=== PATIENT | female | born 1925 | race Caucasian/White ===

== ENCOUNTER → 2016-06-05 | Outpatient (CLI) | payer OTHER, BC ==
[~2016-06-05] MED LIST: ACET-1256 PO; ACET500C6 PO; ALBINS/ INH; ATEN-175 PO; ATROPS5 SL; ATV5 SL; B-COCAP20 PO; BNDL2 PO; CLC100 PO; CLCUDL150 PO; DILT180C58 PO; DLCS PR; DRGTP12 TD; FURO-85 PO; HYDCR25 EXT; LCTS240 PO; LDDP5 TD; LDXO60 TOP; RCL25 PO; RXNS2.5 PO; RXNS5 PO; SODI650T9 PO; TIOTCAP INH; TUMS PO; VNTHFA/IN INH; [UNRECOGNIZED DRUG - CODE] PO; [UNRECOGNIZED DRUG - CODE] PO
--- NOTE | 2016-06-05 11:08 | DIAGNOSTIC IMAGING REPORT ---
CHEST 2 VIEWS ROUTINE CLINICAL HISTORY: R05 [id number] [address] up posterior chest wall on right s dyspnea COMPARISON STUDY: 04/21/2015 FINDINGS: Consolidative parenchymal infiltrate right base. Small associated right effusion. Lungs otherwise appear clear. There is a component of emphysematous change. IMPRESSION: Consolidative infiltrate right base. Small right effusion. Follow-up to resolution is suggested. Electronically signed by: Abrahan Godwin M.D. 06/05/2016 11:06 AM Dictated Date/Time: 06/05/2016 10:59 AM
--- NOTE | 2016-06-05 11:13 | DIAGNOSTIC IMAGING REPORT ---
RIGHT-SIDED RIB SERIES CLINICAL HISTORY: Right chest wall pain. FINDINGS: 4 views from a right-sided rib series are compared to chest x-ray dated 04/21/2015 and correlated with chest CT dated 07/27/2011. The skeletal structures are osteopenic. There are chronic appearing right lateral fourth and fifth rib fractures. No acute/distracted rib fracture is seen. There is a right pleural effusion with right basilar consolidation. Atherosclerotic calcification is noted in the thoracic aorta. Emphysema is identified. IMPRESSION: 1. There is no radiographic evidence of acute/distracted right-sided rib fracture as clinically queried. 2. There are chronic appearing/healed right fourth and fifth right-sided rib fractures as above. 3. Right pleural effusion with right basilar consolidation. 4. Emphysema. Electronically signed by: Augustine Peralta M.D. 06/05/2016 11:11 AM Dictated Date/Time: 06/05/2016 11:06 AM
== END | disposition home or self-care (01) ==
LOC: C.RAD1850 10:31
PROVIDERS: ATTEND Dermatology
DX: R05 Cough (principal); R09.89 Other specified symptoms and signs involving the circulatory and respiratory systems; J43.9 Emphysema, unspecified; J90 Pleural effusion, not elsewhere classified

== ENCOUNTER 2016-06-23 16:14 | Inpatient (IN) | payer OTHER, BC ==
[~2016-06-23] VITALS: Ht 162.6 cm; Wt 53.7 kg
[~2016-06-23 16:14] MED LIST changes: -ACET-1256 PO; -ALBINS/ INH; -ATROPS5 SL; -ATV5 SL; -B-COCAP20 PO; -BNDL2 PO; -CLC100 PO; -CLCUDL150 PO; -DLCS PR; -DRGTP12 TD; -HYDCR25 EXT; -LCTS240 PO; -LDDP5 TD; -RCL25 PO; -RXNS2.5 PO; -RXNS5 PO; -SODI650T9 PO; -TUMS PO; -VNTHFA/IN INH; -[UNRECOGNIZED DRUG - CODE] PO; -[UNRECOGNIZED DRUG - CODE] PO
[2016-06-23 17:10] LABS: HEMATOCRIT 34.7 % (37-47); MEAN CELL VOLUME 93.5 fL (80-100); MEAN CORPUSCULAR HEMOGLOBIN 30.2 pg (25-34); MEAN CORPUSCULAR HGB CONC 32.3 g/dl (32-36); MEAN PLATELET VOLUME 9.8 fL (7.4-10.4); PLATELET COUNT 525 K/uL (130-400); RED BLOOD COUNT 3.71 M/uL (4.2-5.4); WHITE BLOOD COUNT 14.39 K/uL (4.8-10.8)
--- NOTE | 2016-06-23 17:15 | EMERGENCY ROOM VISIT NOTE ---
History Report prepared by Zaheer: Dalia Diamond Under the Supervision of: Dr. Miguelina Xiong D.O. First contact with patient: 16:24 Chief Complaint: RESPIRATORY PROBLEMS Stated Complaint: PNEUMONIA FOR 3 WEEKS- PHYSICIAN REFERRED History of Present Illness The patient is an 89 year old female who presents to the Emergency Room with complaints of worsening shortness of breath starting a few weeks [employer]. The patient's states that she was sent in today by her PCP to come be evaluated at the ED today. The patient states that she has had pneumonia and been on 3 different antibiotics with no relief of her symptoms. The patient states that she has felt worsening SOB, generalized weakness, and fatigue. The patient's daughter states that in late may the patient was seen with shortness of breath at [facility] and was prescribed doxycycline for 10 days. She states the patient had no relief of her symptoms and was seen on June 05 and given azithromycin. The patient's daughter states that the patient initially had relief of her symptoms but about 1 week ago the patient's symptoms worsened and saw her PCP and was diagnosed with right sided pneumonia. She states the patient was prescribed Clindamycin along with prednisone. The patient's daughter states the patient was home alone this weekend and did not leave her bedroom to take her medication because she was so week and only got up to go to the bathroom.She states that the patient complains of worsening shortness of breath when lying down. The patient's daughter states that the patient's medication was changed to a liquid form yesterday because the patient had not been able to take her medication in the pill form. The patient states that she now has diarrhea and states she is unsure if it is due to her taking Mucinex. The patient's daughter states the patient has been using her nebulizer 4 times a day and her inhaler intermittently. She states last night the patient's oxygen saturations were down to 85% and they got the patient oxygen to wear at home last night and it has stayed up at 95% on oxygen but states the patient does not normally wear oxygen at home. The patient states that she has been coughing up dark mucous recently. The patient states that she has a history of smoking but states she does not know of any history of emphysema or COPD but states she would not be surprised if she did have that. Source of History: patient Onset: few weeks [employer] Position: other (respiratory) Timing: worsening Modifying Factors (Worsening): other (lying down) Associated Symptoms: + diarrhea, + weakness (generalized) Note: Associated symptoms: fatigue Review of Systems See HPI for pertinent positives & negatives. A total of 10 systems reviewed and were otherwise negative. Past Medical & Surgical Medical Problems: (1) Arthritis (2) Benign hypertension (3) Bronchitis (4) ovarian cyst rupture (5) Pleural effusion (6) Pneumonia (7) right hip replacement (8) right knee replacement Family History FH: HTN (hypertension) FH: cancer FH: kidney disease Heart disease Social History Smoking Status: Former Smoker Alcohol Use: occasionally Drug Use: none Marital Status: Housing Status: lives with family Occupation Status: retired Current/Historical Medications Scheduled Albuterol Hfa (Ventolin Hfa), 2 PUFFS INH QID Albuterol Sulf (Proventil 0.083% 2.5MG/3ML), 2.5 MG INH QID Atenolol (Tenormin), 100 MG PO DAILY Clindamycin Palmitate (Clindamycin Palmitate HCl), 20 ML PO TID Diltiazem Hcl Coated Beads (Diltiazem Cd), 180 MG PO DAILY Fluocinonide (Lidex 0.05% Oint), 1 GM TOP BID Furosemide (Lasix), 20 MG PO DAILY Prednisolone Sod Phos (Prednisolone Sodium Phosp), 40 ML PO UD Scheduled PRN Acetaminophen (Tylenol), 1,000 MG PO Q6H PRN for Pain Allergies Coded Allergies: Penicillins (Verified Allergy, Intermediate, hives, 06/23/16) Physical Exam Vital Signs Date Time Temp Pulse Resp B/P Pulse Ox O2 Delivery O2 Flow Rate FiO2 06/23/16 17:25 57 24 178/81 93 Room Air 06/23/16 17:04 94 Nasal Cannula 2.0 06/23/16 16:52 58 06/23/16 16:33 95 Nasal Cannula 2.0 06/23/16 16:16 36.8 61 22 183/82 94 Room Air Physical Exam General: The patient has a wet cough productive of thick brown sputum. HEENT: Head - normocephalic and atraumatic Pupils are equal, round, and reactive to light. Extraocular eye muscles are intact, and sclera are anicteric. Nose - moist nasal mucosa without discharge. Mouth - moist buccal mucosa. Oropharynx is nonerythematous and there is no tonsillar exudate or edema noted. Neck: Supple; no JVD, nuchal rigidity, cervical lymphadenopathy. Heart: Regular rate and rhythm. There is a normal S1 and S2 with no murmurs, clicks, or gallops appreciated. Lungs: Absent breath sounds in right base and rhonchi throughout all other lung ariza. Abdomen: Soft, completely nontender, nondistended, with good bowel sounds. There are no palpable pulsatile masses or hepatosplenomegaly. There is no guarding, rigidity, or rebound noted. Extremities: No evidence of cyanosis, clubbing, or edema. There are easily palpable peripheral pulses. Skin: Very thin and dry. Medical Decision & Procedures ER Provider Diagnostic Interpretation: X-ray results as stated below per interpretation by me and the radiologist: TWO VIEW CHEST CLINICAL HISTORY: Cough. Pneumonia. FINDINGS: AP and lateral chest radiographs are compared to study dated 06/05/2016 and correlated with chest CT dated 07/27/2011. The AP view is significant degraded by patient rotation. The heart is top normal for projection. There is advanced atherosclerotic calcification of the thoracic aorta. The pulmonary vasculature is noncongested. Advanced emphysema and chronic interstitial thickening is similar to previous. A moderate right pleural effusion is identified. The effusion appears to be at least partially loculated. Patchy airspace consolidation is seen in the right lower lung. The left lung is grossly clear. Apical scarring is observed. There is no pneumothorax. The skeletal structures are osteopenic. Advanced degenerative change is seen throughout the thoracic spine. Calcific tendinopathy is noted in left shoulder. IMPRESSION: 1. Advanced emphysema. 2. A pleural effusion at the right lung base has increased in size from 06/05/2016 and there is associated consolidation throughout the right lower lung. Correlate clinically for evidence of pneumonia. Radiographic follow-up to resolution is recommended. 3. The left lung is grossly clear Electronically signed by: Augustine Peralta M.D. 06/23/2016 5:41 PM Dictated Date/Time: 06/23/2016 5:37 PM Laboratory Results 06/23/16 16:57 Red Blood Count 3.71, Mean Corpuscular Volume 93.5, Mean Corpuscular Hemoglobin 30.2, Mean Corpuscular Hemoglobin Concent 32.3, Mean Platelet Volume 9.8, Neutrophils (%) (Auto) 95.5, Lymphocytes (%) (Auto) 2.6, Monocytes (%) (Auto) 1.5, Eosinophils (%) (Auto) 0.0, Basophils (%) (Auto) 0.0, Neutrophils # (Auto) 13.73, Lymphocytes # (Auto) 0.38, Monocytes # (Auto) 0.22, Eosinophils # (Auto) 0.00, Basophils # (Auto) 0.00 Test 06/23/16 16:57 06/23/16 17:05 06/23/16 17:54 White Blood Count 14.39 K/uL (4.8-10.8) Red Blood Count 3.71 M/uL (4.2-5.4) Hemoglobin 11.2 g/dL (12.0-16.0) Hematocrit 34.7 % (37-47) Mean Corpuscular Volume 93.5 fL (80-100) Mean Corpuscular Hemoglobin 30.2 pg (25-34) Mean Corpuscular Hemoglobin Concent 32.3 g/dl (32-36) Platelet Count 525 K/uL (130-400) Mean Platelet Volume 9.8 fL (7.4-10.4) Neutrophils (%) (Auto) 95.5 % Lymphocytes (%) (Auto) 2.6 % Monocytes (%) (Auto) 1.5 % Eosinophils (%) (Auto) 0.0 % Basophils (%) (Auto) 0.0 % Neutrophils # (Auto) 13.73 K/uL (1.4-6.5) Lymphocytes # (Auto) 0.38 K/uL (1.2-3.4) Monocytes # (Auto) 0.22 K/uL (0.11-0.59) Eosinophils # (Auto) 0.00 K/uL (0-0.5) Basophils # (Auto) 0.00 K/uL (0-0.2) RDW Standard Deviation 50.2 fL (36.4-46.3) RDW Coefficient of Variation 15.0 % (11.5-14.5) Immature Granulocyte % (Auto) 0.4 % Immature Granulocyte # (Auto) 0.06 K/uL (0.00-0.02) Total Bilirubin 0.2 mg/dl (0.2-1) Direct Bilirubin < 0.1 mg/dl (0-0.2) Aspartate Amino Transf (AST/SGOT) 26 U/L (15-37) Alanine Aminotransferase (ALT/SGPT) 35 U/L (12-78) Alkaline Phosphatase 86 U/L (45-117) Total Creatine Kinase 27 U/L (26-192) Creatine Kinase MB 1.4 ng/ml (0.5-3.6) Creatine Kinase MB Ratio 5.2 (0-3.0) Troponin I < 0.015 ng/ml (0-0.045) Pro-B-Type Natriuretic Peptide 51252 pg/ml (0-1800) Total Protein 7.0 gm/dl (6.4-8.2) Albumin 2.1 gm/dl (3.4-5.0) Bedside Lactic Acid Venous 2.46 mmol/L (0.90-1.70) Prothrombin Time 11.4 SECONDS (9.0-12.0) Prothromb Time International Ratio 1.1 (0.9-1.1) Activated Partial Thromboplast Time 29.2 SECONDS (21.0-31.0) Partial Thromboplastin Ratio 1.1 Laboratory results per my review. Medications Administered Medications (Trade) Dose Ordered Sig/[place] Route Start Time Stop Time Status Last Admin Dose Admin Aztreonam/Dextrose (Azactam IV/D5 100ml) 110 ml @ 100 mls/hr NOW STAT IV 06/23/16 17:50 06/23/16 18:55 DC 06/23/16 19:45 100 MLS/HR Levofloxacin (Levaquin / D5W) 750 mg NOW ONCE IV 06/23/16 18:00 06/23/16 18:01 DC 06/23/16 18:26 750 MG Procedure Medications Administered: Aztreonam 2,000 mgIV Levofloxacin 750 mg IV ECG Indication: SOB/dyspnea Rate (beats per minute): 30 Rhythm: normal sinus Findings: ST depression (Lateral), no ectopy ED Course 1629: Past medical records reviewed. The patient was evaluated in room C3. A complete history and physical exam was performed. A sepsis protocol was performed. A twelve-lead EKG was obtained as described above. The patient had a chest x-ray as described above. 1750: Ordered Aztreonam 2,000 mg/Dextrose 110 ml @100 mls/hr IV. 1754: I reevaluated the patient and she was resting comfortably, and I updated her that she would be admitted for further evaluation. She had not been able to produce a stool specimen as of yet. 175: I discussed the case with Dr. Taj Leavitt. He agreed to evaluate the patient for further management and care. 1800: Ordered Levofloxacin 750 mg IV. Medical Decision The patient is a 89 year old female who presents to the ED with SOB. Differential diagnosis includes sepsis, pneumonia, empyema, and underlying lung malignancy. C. Diff. Labs: White count 14.3 Anemic with hemoglobin 11.2 Platelet count 5.25 95% Neutrophils Lactic acid 2.4 LFTs normal BNP 14,124 This is an 89-year-old female patient who spilled outpatient therapy on 3 different courses of antibiotics for a right lower lobe pneumonia. The pneumonia has worsened and has now significant right-sided pleural effusion. The patient is hypoxic without supplemental O2. There is concern for the possibility of gram-negative pathogens as well as pseudomonas. There is significant concern for empyema. The patient was treated with IV antibiotics. She is hemodynamically stable. Consults Time Called: 1749 Consulting Physician: Dr. Taj Leavitt Returned Call: [phone] I discussed the case with Dr. Taj Leavitt. He agreed to evaluate the patient for further management and care. Impression Primary Impression: Right lower lobe pneumonia Additional Impression: Hypoxia Scribe Attestation The scribe's documentation has been prepared under my direction and personally reviewed by me in its entirety. I confirm that the note above accurately reflects all work, treatment, procedures, and medical decision making performed by me. Departure Information Dispostion Being Evaluated By Hospitalist Joe Herrmann M.D. (PCP) Patient Instructions [facility] Problem Qualifiers
[2016-06-23 17:32] LABS: COMPLETE YES; IG% 0.4 %; LYMPH % 2.6 %; LYMPH ABS # 0.38 K/uL (1.2-3.4); MONO % 1.5 %; NEUT % 95.5 %
[2016-06-23 17:33] LABS: ALKALINE PHOSPHATASE 86 U/L (45-117); ALT/SGPT 35 U/L (12-78); AST/SGOT 26 U/L (15-37); CKMB/CK RATIO 5.2 (0-3.0)
[2016-06-23] MEDS ORDERED: ACET-1256 PO (17:39)
[2016-06-23] MEDS ORDERED: VNTHFA/IN INH (17:39)
[2016-06-23] MEDS ORDERED: [UNRECOGNIZED DRUG - CODE] PO (17:39)
[2016-06-23] MEDS ORDERED: ALBINS/ INH (17:39)
[2016-06-23] MEDS ORDERED: CLCUDL150 PO (17:40)
--- NOTE | 2016-06-23 17:43 | DIAGNOSTIC IMAGING REPORT ---
TWO VIEW CHEST CLINICAL HISTORY: Cough. Pneumonia. FINDINGS: AP and lateral chest radiographs are compared to study dated 06/05/2016 and correlated with chest CT dated 07/27/2011. The AP view is significant degraded by patient rotation. The heart is top normal for projection. There is advanced atherosclerotic calcification of the thoracic aorta. The pulmonary vasculature is noncongested. Advanced emphysema and chronic interstitial thickening is similar to previous. A moderate right pleural effusion is identified. The effusion appears to be at least partially loculated. Patchy airspace consolidation is seen in the right lower lung. The left lung is grossly clear. Apical scarring is observed. There is no pneumothorax. The skeletal structures are osteopenic. Advanced degenerative change is seen throughout the thoracic spine. Calcific tendinopathy is noted in left shoulder. IMPRESSION: 1. Advanced emphysema. 2. A pleural effusion at the right lung base has increased in size from 06/05/2016 and there is associated consolidation throughout the right lower lung. Correlate clinically for evidence of pneumonia. Radiographic follow-up to resolution is recommended. 3. The left lung is grossly clear Electronically signed by: Augustine Peralta M.D. 06/23/2016 5:41 PM Dictated Date/Time: 06/23/2016 5:37 PM
[2016-06-23] MEDS ORDERED: AZTREONAM IV 2,000 MG in DEXTROSE 5% 100ML 100 ML IV STA (17:50)
[2016-06-23] MEDS ORDERED: LEVAQUIN 750MG / 150ML D5W IV ONE (18:00)
[2016-06-23 18:25] LABS: INR 1.1 (0.9-1.1); PARTIAL THROMBOPLASTIN RATIO 1.1; PROTHROMBIN TIME (PATIENT) 11.4 SECONDS (9.0-12.0)
[2016-06-23] MEDS ORDERED: ACETAMINOPHEN 325 MG TAB PO PRN (18:30)
--- NOTE | 2016-06-23 18:39 | History and Physical ---
History & Physical Date & Time of Service: Jun 23, 2016 at 18:26 Chief Complaint: Pneumonia For 3 Weeks- Physician Referred Primary Care Physician: Joe Murphy M.D. History of Present Illness Source: patient 89 yo female who presents to the ED with her daughter after failing 3 separate courses of antibiotics for pneumonia. The patient says that she started to have weakness, shortness of breath and productive cough one month ago and was diagnosed with right sided pneumonia as outpatient on CXR. She was prescribed a 7 day course of Doxycycline and she said she felt better for several days but then her symptoms returned and she completed a course of Zithromax and again she felt better slightly but her symptoms got worse. Most recently she was prescribed Clindamycin in liquid form due to difficultly taking the pills and she was set up with home oxygen at 2L. She has become progressively weak and has had a poor appetite. She has a productive cough with yellow/brown sputum, no blood seen. She has been using Albuterol at home which helps somewhat as well as Mucinex. She has not been drinking enough water. She felt so weak today that she accepted that she had to come to the hospital. The CXR shows a large right sided pleural effusion with infiltrate. Her WBC was elevated at 14. She was given Levaquin and Aztreonam and we were asked to admit. Additionally, she admits to diarrhea that just started today, no abdominal pain , no vomiting. Past Medical/Surgical History Medical Problems: (1) Arthritis Status: Chronic (2) Benign hypertension Status: Chronic (3) Bronchitis Status: Chronic (4) ovarian cyst rupture Status: Chronic (5) right hip replacement Status: Resolved (6) right knee replacement Status: Resolved Family History FH: HTN (hypertension) FH: cancer FH: kidney disease Heart disease Social History Smoking Status: Former Smoker Drug Use: none Marital Status: Occupational Status: retired Immunizations History of Influenza Vaccine: Yes Influenza Vaccine Date: Dec 24, 2011 History of Tetanus Vaccine?: unknown History of Pneumococcal: Yes Pneumococcal Date: Dec 26, 2003 History of Hepatitis B Vaccine: No Multi-Drug Resistant Organisms History of MDRO: No Allergies Coded Allergies: Penicillins (Verified Allergy, Intermediate, hives, 06/23/16) Home Medications Scheduled Albuterol Hfa (Ventolin Hfa), 2 PUFFS INH QID Albuterol Sulf (Proventil 0.083% 2.5MG/3ML), 2.5 MG INH QID Atenolol (Tenormin), 100 MG PO DAILY Clindamycin Palmitate (Clindamycin Palmitate HCl), 20 ML PO TID Diltiazem Hcl Coated Beads (Diltiazem Cd), 180 MG PO DAILY Fluocinonide (Lidex 0.05% Oint), 1 GM TOP BID Furosemide (Lasix), 20 MG PO DAILY Prednisolone Sod Phos (Prednisolone Sodium Phosp), 40 ML PO UD Scheduled PRN Acetaminophen (Tylenol), 1,000 MG PO Q6H PRN for Pain Review of Systems Constitutional: + fatigue, + sweats, + weakness, + weight loss, No chills, No fever Eyes: No diplopia, No discharge, No eye pain, No problem reported, No redness, No worsening of vision ENT: No dental problems, No hearing loss, No nasal symptoms, No problem reported, No sore throat, No tinnitus, No trouble swallowing, No unusual epistaxis Respiratory: + cough, + dyspnea on exertion, + shortness of breath, + sputum, No dyspnea at rest, No hemoptysis, No wheezing Cardiovascular: + edema, No PND, No chest pain, No claudication, No orthopnea, No palpitations, No problem reported Abdomen: No GI bleeding, No constipation, No diarrhea, No nausea, No pain, No problem reported, No vomiting Musculoskeletal: No calf pain, No joint pain, No muscle pain, No problem reported, No swelling Genitourinary - Female: No dysuria, No urinary frequency, No urinary incontinence, No urinary urgency Neurologic: + weakness (generalized), No balance problems, No memory loss, No numbness/tingling, No paralysis, No problem reported, No vertigo Psychiatric: No anhedonism, No anxiety, No depression symptoms, No insomnia, No problem reported, No substance abuse Endocrine: No excessive thirst, No excessive urination, No fatigue, No problem reported Hematologic / Lymphatic: No abnormal bleeding/bruising, No clotting problems, No night sweats, No problem reported, No swollen lymph nodes Integumentary: No bleeding, No color change, No itch, No new/changing skin lesions, No problem reported, No rash Allergic / Immunologic: No environmental allergies, No food allergies, No frequent infections, No hives, No pet sensitivities, No poor healing, No problem reported, No prolonged convalescence, No seasonal allergies Physical Exam Vital Signs Date Time Temp Pulse Resp B/P Pulse Ox O2 Delivery O2 Flow Rate FiO2 06/23/16 17:25 57 24 178/81 93 Room Air 06/23/16 17:04 94 Nasal Cannula 2.0 06/23/16 16:52 58 06/23/16 16:33 95 Nasal Cannula 2.0 06/23/16 16:16 36.8 61 22 183/82 94 Room Air General Appearance: no apparent distress, + thin Head: normocephalic, atraumatic Eyes: normal inspection, EOMI, sclerae normal ENT: normal ENT inspection, hearing grossly normal, pharynx normal Neck: supple, no adenopathy, no JVD, trachea midline Respiratory/Chest: chest non-tender, no respiratory distress, no accessory muscle use, + decreased breath sounds (right base), + crackles (right base), + rhonchi (scattered) Cardiovascular: regular rate, rhythm, no gallop, no JVD, no murmur, normal peripheral pulses Abdomen/GI: normal bowel sounds, non tender, soft, no organomegaly Back: normal inspection, no CVA tenderness, no muscle spasm, normal range of motion Extremities/Musculoskelatal: normal inspection, no calf tenderness, normal capillary refill, normal range of motion, pelvis stable, + pedal edema (trace bilaterally, pitting) Neurologic/Psych: multimedia artist II-XII nml as tested, no motor/sensory deficits, alert, normal mood/affect, normal reflexes, oriented x 3 Skin: normal color, warm/dry, no rash Lymphatic: no adenopathy Diagnostics Laboratory Results Results Past 24 Hours Test 06/23/16 16:57 06/23/16 17:05 06/23/16 17:53 06/23/16 17:54 Range/Units White Blood Count 14.39 4.8-10.8 K/uL Red Blood Count 3.71 4.2-5.4 M/uL Hemoglobin 11.2 12.0-16.0 g/dL Hematocrit 34.7 37-47 % Mean Corpuscular Volume 93.5 80-100 fL Mean Corpuscular Hemoglobin 30.2 25-34 pg Mean Corpuscular Hemoglobin Concent 32.3 32-36 g/dl Platelet Count 525 130-400 K/uL Mean Platelet Volume 9.8 7.4-10.4 fL Neutrophils (%) (Auto) 95.5 % Lymphocytes (%) (Auto) 2.6 % Monocytes (%) (Auto) 1.5 % Eosinophils (%) (Auto) 0.0 % Basophils (%) (Auto) 0.0 % Neutrophils # (Auto) 13.73 1.4-6.5 K/uL Lymphocytes # (Auto) 0.38 1.2-3.4 K/uL Monocytes # (Auto) 0.22 0.11-0.59 K/uL Eosinophils # (Auto) 0.00 0-0.5 K/uL Basophils # (Auto) 0.00 0-0.2 K/uL RDW Standard Deviation 50.2 36.4-46.3 fL RDW Coefficient of Variation 15.0 11.5-14.5 % Immature Granulocyte % (Auto) 0.4 % Immature Granulocyte # (Auto) 0.06 0.00-0.02 K/uL Total Bilirubin 0.2 0.2-1 mg/dl Direct Bilirubin < 0.1 0-0.2 mg/dl Aspartate Amino Transf (AST/SGOT) 26 15-37 U/L Alanine Aminotransferase (ALT/SGPT) 35 12-78 U/L Alkaline Phosphatase 86 45-117 U/L Total Creatine Kinase 27 26-192 U/L Creatine Kinase MB 1.4 0.5-3.6 ng/ml Creatine Kinase MB Ratio 5.2 0-3.0 Troponin I < 0.015 0-0.045 ng/ml Pro-B-Type Natriuretic Peptide 87891 0-1800 pg/ml Total Protein 7.0 6.4-8.2 gm/dl Albumin 2.1 3.4-5.0 gm/dl Bedside Lactic Acid Venous 2.46 0.90-1.70 mmol/L Prothrombin Time 11.4 9.0-12.0 SECONDS Prothromb Time International Ratio 1.1 0.9-1.1 Activated Partial Thromboplast Time 29.2 21.0-31.0 SECONDS Partial Thromboplastin Ratio 1.1 Microbiology Results 06/23/16 Blood Culture, Received Pending 06/23/16 Blood Culture, Received Pending Diagnostic Radiology TWO VIEW CHEST CLINICAL HISTORY: Cough. Pneumonia. FINDINGS: AP and lateral chest radiographs are compared to study dated 06/05/2016 and correlated with chest CT dated 07/27/2011. The AP view is significant degraded by patient rotation. The heart is top normal for projection. There is advanced atherosclerotic calcification of the thoracic aorta. The pulmonary vasculature is noncongested. Advanced emphysema and chronic interstitial thickening is similar to previous. A moderate right pleural effusion is identified. The effusion appears to be at least partially loculated. Patchy airspace consolidation is seen in the right lower lung. The left lung is grossly clear. Apical scarring is observed. There is no pneumothorax. The skeletal structures are osteopenic. Advanced degenerative change is seen throughout the thoracic spine. Calcific tendinopathy is noted in left shoulder. IMPRESSION: 1. Advanced emphysema. 2. A pleural effusion at the right lung base has increased in size from 06/05/2016 and there is associated consolidation throughout the right lower lung. Correlate clinically for evidence of pneumonia. Radiographic follow-up to resolution is recommended. 3. The left lung is grossly clear Impression Assessment and Plan 89 yo female with worsening right sided pneumonia now with right sided effusion - Right sided pneumonia with effusion: will obtain CT chest without contrast due to Cr consult thoracic surgery for recommendations, to see tomorrow treat pneumonia with Levaquin and Aztreonam (allergies) nebulizers no evidence of sepsis, BP actually high, minimal hypoxia likely because left lung clear - HTN: patient admits that she had not taken medications for two days will continue Atenolol and Diltiazem with hold parameters - Dehydration: NSS at 80cc/hr - Diarrhea: just started today, will check a C diff with all the recent antibiotic use - DVT prophylaxis: Heparin q12 - CKD stage III/IV: IV fluids, repeat labs in the AM Level of Care Med/Surg Resuscitation Status FULL RESUSCITATION VTE Prophylaxis VTE Risk Assessment Done? Y/N: Yes Risk Level: High Given or contraindicated: Unfractionated heparin SQ Additional Copies To Joe Murphy M.D.
--- NOTE | 2016-06-23 19:57 | DIAGNOSTIC IMAGING REPORT ---
CT SCAN OF THE CHEST WITHOUT IV CONTRAST CLINICAL HISTORY: Pleural effusion and pneumonia. COMPARISON STUDY: Chest CT dated 07/27/2011. Chest x-ray dated 06/23/2016. TECHNIQUE: CT scan of the thorax was performed from the thoracic inlet to the upper abdomen. Images are reviewed in the axial, sagittal, and coronal planes. IV contrast was not administered for this examination as per the referring clinician. CT DOSE: 220.51 mGy.cm FINDINGS: Thyroid: Imaged portions of the thyroid gland are normal in size and attenuation. Thoracic aorta: There is advanced atherosclerotic calcification of the thoracic aorta. 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 This measures up to 1.8 cm and is new from 2012. The right of the thoracic aorta is normal in caliber. The arch demonstrates standard 3-vessel anatomy. Heart: The heart is mildly enlarged and without pericardial effusion. The coronary arteries and mitral annulus are densely calcified. The main pulmonary arteries appear mildly dilated suggesting pulmonary artery hypertension. Lungs and pleural spaces: Moderate emphysema is noted and there is biapical scarring. There is a moderate and multiloculated complex gas and fluid containing pleural collection identified at the right lung base. There is associated pleural thickening. This collection measures at least 10 x 16 x 5 cm in maximum dimension. An air-fluid level is noted within the collection on image #170. Foci of loculated fluid are also seen along the right major fissure. Numerous foci of tree-in-bud nodularity are present throughout the right lung. There is bronchiectasis identified in the right lower lobe, with fluid present within the right lower lobe airways. Mild tree-in-bud nodularity is seen at the left lung base. No left pleural effusion is identified. The layering fluid is identified in the trachea. Mediastinum: There are numerous subcentimeter mediastinal lymph nodes. These are not pathologically enlarged by size criteria. Maribell: Not well assessed without IV contrast. Axillae: There is no axillary lymphadenopathy. Upper abdomen: There is cortical atrophy of the partially imaged left kidney. Partially visualized upper abdominal viscera is otherwise within normal limits. Skeletal structures: The skeletal structures are osteopenic. Mild degenerative change and scoliosis are noted throughout the thoracic spine. No lytic or blastic bony lesions are seen. Arthritic change is present in the shoulders. There are healed right-sided rib fractures. IMPRESSION: 1. Cardiomegaly and emphysema. 2. There is a large and multiloculated complex gas and fluid containing collection identified at the right lung base as detailed above. This likely represents an empyema. 3. Multifocal tree-in-bud airspace nodularity is seen throughout the right lung and at the left lung base. This is likely on an infectious/inflammatory basis and should be reassessed at follow-up. 4. Prominent mediastinal lymph nodes are likely on a reactive basis. 5. Bronchiectasis is again seen at the right lung base. The right lower lobe airways are filled with fluid, and there is also fluid seen within the trachea. Correlate clinically for evidence of aspiration. 6. 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 This is new from 07/27/2011. The remainder of the thoracic aorta is normal in caliber. 7. Additional findings as above. Electronically signed by: Augustine Peralta M.D. 06/23/2016 7:55 PM Dictated Date/Time: 06/23/2016 7:45 PM
[2016-06-23 19:58] LABS: BUN/CREATININE RATIO 31.1 (10-20); CALCIUM 8.4 mg/dl (8.5-10.1); CREATININE 2.4 mg/dl (0.60-1.20); POTASSIUM 4.3 mmol/L (3.5-5.1)
[2016-06-23] MEDS: ALBUT/IPRATROP 3MG/0.5MG NEB 3 ML VIAL INH SCH (20:30)
[2016-06-23 20:32] VITALS: PULSE 71; O2SAT 97
[2016-06-23 20:39] VITALS: BP 193/79; PULSE 60; TEMP 36.5; O2SAT 95; Ht 162.6 cm; Wt 53.7 kg
[2016-06-23] MEDS ORDERED: LEVOFLOXACIN CONSULT ACTIVE PRN (21:30)
[2016-06-23] MEDS: HEPARIN SOD 5000 UNIT/0.5 ML CARP SQ SCH (22:29)
[2016-06-23 22:50] VITALS: BP 155/71; PULSE 57; TEMP 36.3; O2SAT 97
[2016-06-24] VITALS (9 sets, daily range): BP systolic 153–154; BP diastolic 69–77; PULSE 61–85; TEMP 36.6–36.9; O2SAT 88–95
[2016-06-24] MEDS: ALBUT/IPRATROP 3MG/0.5MG NEB 3 ML VIAL INH SCH ×5 (03:33→20:04)
[2016-06-24] MEDS: AZTREONAM IV 1,000 MG in DEXTROSE 5% 100ML 100 ML IV SCH ×3 (03:39→20:09)
[2016-06-24 06:04] LABS: HEMATOCRIT 31.9 % (37-47); MEAN CELL VOLUME 93.3 fL (80-100); MEAN CORPUSCULAR HEMOGLOBIN 29.5 pg (25-34); MEAN CORPUSCULAR HGB CONC 31.7 g/dl (32-36); MEAN PLATELET VOLUME 9.8 fL (7.4-10.4); PLATELET COUNT 493 K/uL (130-400); RED BLOOD COUNT 3.42 M/uL (4.2-5.4); WHITE BLOOD COUNT 12.44 K/uL (4.8-10.8)
[2016-06-24 06:28] LABS: BASO % 0.1 %; BASO ABS # 0.01 K/uL (0-0.2); COMPLETE YES; EOS % 0.1 %; IG% 0.3 %; LYMPH % 3.8 %; LYMPH ABS # 0.47 K/uL (1.2-3.4); MONO % 6.1 %; NEUT % 89.6 %
[2016-06-24 06:33] LABS: BUN/CREATININE RATIO 31.1 (10-20); CALCIUM 8.4 mg/dl (8.5-10.1); CREATININE 2.3 mg/dl (0.60-1.20); MAGNESIUM 1.9 mg/dl (1.8-2.4); POTASSIUM 4.2 mmol/L (3.5-5.1)
[2016-06-24] MEDS ORDERED: LIDOCAINE HCL 1% 20 ML VIAL ONE (07:29)
[2016-06-24] MEDS ORDERED: LIDOCAINE/EPINEPHRINE 1% 20 ML VIAL INFIL SCH (07:30)
[2016-06-24] MEDS ORDERED: NURSING VERBAL MED ORDER ONE ×3 (07:30→13:15)
[2016-06-24] MEDS ORDERED: ALTEPLASE, RECOMBINANT 1 MG/ML 2 ML VIAL IPL ONE ×2 (08:00→14:00)
--- NOTE | 2016-06-24 08:01 | DIAGNOSTIC IMAGING REPORT ---
CHEST ONE VIEW PORTABLE CLINICAL HISTORY: effusion COMPARISON STUDY: 06/23/2016 FINDINGS: There is a right basilar pleural catheter. There is a loculated right basilar pneumothorax with a pleural separation of 15 mm. There is interval decrease in the size the right pleural effusion. There are right basilar airspace opacities. A line shadow within the left hemithorax is felt to represent a skinfold.[ IMPRESSION: Interval decrease in the right pleural fluid collection status post placement of a pleural drainage catheter. 15 mm loculated right basilar pneumothorax. Right basilar airspace opacities. Electronically signed by: Kelvin Valdovinos M.D. 06/24/2016 7:59 AM Dictated Date/Time: 06/24/2016 7:58 AM
[2016-06-24] MEDS ORDERED: DILTIAZEM HCL 180 MG CAPCR PO SCH (09:00)
[2016-06-24 09:01] LABS: PLEURAL FLUID APPEARANCE TURBID; PLEURAL FLUID COLOR GREEN/YELLOW
[2016-06-24 09:03] LABS: PLEURAL FLUID WBC (B) 614790 /uL
[2016-06-24 09:05] LABS: PLEURAL FLUID RBC (B) 777000 /uL
[2016-06-24 09:08] LABS: PLEURAL FLUID WBC (A) 662000 /uL
[2016-06-24] MEDS: HEPARIN SOD 5000 UNIT/0.5 ML CARP SQ SCH ×2 (09:29→21:06)
[2016-06-24] MEDS: DILTIAZEM HCL (TIAzac) 180 MG CAPCR PO SCH (10:32)
[2016-06-24] MEDS ORDERED: SACCHAROMYCES BOUL (FLORASTOR) 250 MG CAP PO ONE (11:12)
--- NOTE | 2016-06-24 11:17 | Progress Note ---
Subjective Date of Service: Jun 24, 2016. Subjective Pt evaluation today including: conversation w/ patient, conversation w/ family Pt is feeling much improved s/p thoracentesis this AM. Still SOB and with a productive cough. She is bringing up more mucous since her procedure. She has some pain, more an uncomfortable feeling related to her thoracentesis site, but no chest pain otherwise. Her appetite has been low recently. She has been tolerating ice chips since her procedure, but not hungry. Pt denies fever, abd pain, n/v/c/d, LE pain or swelling. Pt does state that she had some LE swelling recently which started after she was started on steroids. Her daughter also states that she caused the skin tear on pt's R lower leg FINANCIAL ADMINISTRATOR while she was drying pt off. ROS as noted above, otherwise neg. Problem List Medical Problems: (1) Constipation Status: Acute (2) Eczema Status: Acute (3) Hypoxia Status: Acute (4) Peripheral edema Status: Acute (5) Renal insufficiency Status: Acute (6) Right lower lobe pneumonia Status: Acute Objective Vital Signs Date Time Temp Pulse Resp B/P Pulse Ox O2 Delivery O2 Flow Rate FiO2 06/24/16 08:44 36.6 61 18 154/77 93 Room Air 06/24/16 08:04 85 16 93 Nasal Cannula 3.0 06/24/16 07:55 Nasal Cannula 2.0 06/24/16 03:33 79 16 95 Nasal Cannula 3.0 06/23/16 23:15 Nasal Cannula 2.0 06/23/16 22:50 36.3 57 16 155/71 97 Nasal Cannula 2.0 06/23/16 21:00 Nasal Cannula 2.0 06/23/16 20:39 36.5 60 16 193/79 95 Nasal Cannula 2.0 06/23/16 20:32 71 16 97 Nasal Cannula 2.0 06/23/16 19:38 62 20 159/76 96 Nasal Cannula 2.0 06/23/16 18:47 65 24 163/76 96 Nasal Cannula 2.0 06/23/16 17:25 57 24 178/81 93 Room Air 06/23/16 17:04 94 Nasal Cannula 2.0 06/23/16 16:52 58 06/23/16 16:33 95 Nasal Cannula 2.0 06/23/16 16:16 36.8 61 22 183/82 94 Room Air Physical Exam General Appearance: WD/WN, no apparent distress Respiratory/Chest: no respiratory distress, + decreased breath sounds, + crackles, + pertinent finding (no wheezing) Cardiovascular: regular rate, rhythm, no edema Abdomen: non tender, soft Extremities: non-tender, no pedal edema Neurologic/Psychiatric: alert, normal mood/affect, oriented x 3 Skin: normal color, warm/dry Laboratory Results Last 24 Hours Test 06/23/16 16:57 06/23/16 17:05 06/23/16 17:54 06/23/16 19:30 White Blood Count 14.39 K/uL Red Blood Count 3.71 M/uL Hemoglobin 11.2 g/dL Hematocrit 34.7 % Mean Corpuscular Volume 93.5 fL Mean Corpuscular Hemoglobin 30.2 pg Mean Corpuscular Hemoglobin Concent 32.3 g/dl Platelet Count 525 K/uL Mean Platelet Volume 9.8 fL Neutrophils (%) (Auto) 95.5 % Lymphocytes (%) (Auto) 2.6 % Monocytes (%) (Auto) 1.5 % Eosinophils (%) (Auto) 0.0 % Basophils (%) (Auto) 0.0 % Neutrophils # (Auto) 13.73 K/uL Lymphocytes # (Auto) 0.38 K/uL Monocytes # (Auto) 0.22 K/uL Eosinophils # (Auto) 0.00 K/uL Basophils # (Auto) 0.00 K/uL RDW Standard Deviation 50.2 fL RDW Coefficient of Variation 15.0 % Immature Granulocyte % (Auto) 0.4 % Immature Granulocyte # (Auto) 0.06 K/uL Total Bilirubin 0.2 mg/dl Direct Bilirubin < 0.1 mg/dl Aspartate Amino Transf (AST/SGOT) 26 U/L Alanine Aminotransferase (ALT/SGPT) 35 U/L Alkaline Phosphatase 86 U/L Total Creatine Kinase 27 U/L Creatine Kinase MB 1.4 ng/ml Creatine Kinase MB Ratio 5.2 Troponin I < 0.015 ng/ml Pro-B-Type Natriuretic Peptide 16759 pg/ml Total Protein 7.0 gm/dl Albumin 2.1 gm/dl Bedside Lactic Acid Venous 2.46 mmol/L Prothrombin Time 11.4 SECONDS Prothromb Time International Ratio 1.1 Activated Partial Thromboplast Time 29.2 SECONDS Partial Thromboplastin Ratio 1.1 Sodium Level 146 mmol/L Potassium Level 4.3 mmol/L Chloride Level 106 mmol/L Carbon Dioxide Level 32 mmol/L Anion Gap 8.0 mmol/L Blood Urea Nitrogen 75 mg/dl Creatinine 2.40 mg/dl Est Creatinine Clear Calc Drug Dose 11.8 ml/min Estimated GFR () 20.2 Estimated GFR (Non- 17.4 BUN/Creatinine Ratio 31.1 Random Glucose 126 mg/dl Calcium Level 8.4 mg/dl Test 06/24/16 05:23 06/24/16 07:27 White Blood Count 12.44 K/uL Red Blood Count 3.42 M/uL Hemoglobin 10.1 g/dL Hematocrit 31.9 % Mean Corpuscular Volume 93.3 fL Mean Corpuscular Hemoglobin 29.5 pg Mean Corpuscular Hemoglobin Concent 31.7 g/dl Platelet Count 493 K/uL Mean Platelet Volume 9.8 fL Neutrophils (%) (Auto) 89.6 % Lymphocytes (%) (Auto) 3.8 % Monocytes (%) (Auto) 6.1 % Eosinophils (%) (Auto) 0.1 % Basophils (%) (Auto) 0.1 % Neutrophils # (Auto) 11.15 K/uL Lymphocytes # (Auto) 0.47 K/uL Monocytes # (Auto) 0.76 K/uL Eosinophils # (Auto) 0.01 K/uL Basophils # (Auto) 0.01 K/uL RDW Standard Deviation 50.2 fL RDW Coefficient of Variation 14.9 % Immature Granulocyte % (Auto) 0.3 % Immature Granulocyte # (Auto) 0.04 K/uL Red Blood Cell Morphology Unremarkable Sodium Level 145 mmol/L Potassium Level 4.2 mmol/L Chloride Level 107 mmol/L Carbon Dioxide Level 31 mmol/L Anion Gap 7.0 mmol/L Blood Urea Nitrogen 72 mg/dl Creatinine 2.30 mg/dl Est Creatinine Clear Calc Drug Dose 12.1 ml/min Estimated GFR () 21.3 Estimated GFR (Non- 18.4 BUN/Creatinine Ratio 31.1 Random Glucose 87 mg/dl Calcium Level 8.4 mg/dl Magnesium Level 1.9 mg/dl Pleural Fluid Source R. LUNG Pleural Fluid Color GREEN/YELLOW Pleural Fluid Appearance TURBID Pleural Fluid WBC 304395 /uL Pleural Fluid RBC 787401 /uL Pleural Fluid Polynuclear WBCs 95.0 % Pleural Fluid Mononuclear WBCs 5.0 % Pleural Fluid Polynuclear WBCs % % Assessment and Plan 89 yo female with worsening right sided pneumonia now with right sided effusion - Right sided pneumonia with effusion: CT noted for R sided empyema with tree-in -bud noted b/l Also with prominent mediastinal lymph nodes thought to be reactive CT surg performed thoracentesis 06/24, testing pending treat pneumonia with Levaquin and Aztreonam (allergies) nebulizers no evidence of sepsis, BP actually high, minimal hypoxia likely because left lung clear - HTN: patient admits that she had not taken medications for two days will continue Atenolol and Diltiazem with hold parameters - Dehydration: NSS at 80cc/hr - Diarrhea: just started FINANCIAL ADMINISTRATOR, cdiff neg and stool cx pending. 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
[2016-06-24] MEDS ORDERED: DORNASE ALFA (2500U) 2.5MG/2.5ML IPL ONE ×2 (12:30→14:00)
[2016-06-24] MEDS ORDERED: DORNASE ALFA 2.5MG 5 ML in SYRINGE 25 ML IPL SCH ×2 (12:30→15:30)
[2016-06-24] MEDS: BOOST BREEZE NUTRITION DRINK 1 BOX PO SCH ×2 (13:57→17:25)
--- NOTE | 2016-06-24 16:10 | SURGICAL CONSULTATION ---
DATE OF CONSULTATION: 06/24/2016 DATE OF CONSULTATION: 06/24/2016. REASON FOR CONSULTATION: Right pleural effusion. 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 She has had multiple courses of antibiotics for a pneumonia. She became more and more short of breath more recently and began using oxygen at home. She produced some yellow sputum and some dark sputum. She has been taking Mucinex and inhalers. She became very weak. She was found to have an elevation of her white count to 14,000 upon presentation in the Emergency Room. She was given Levaquin as she is allergic to penicillin. CT scan showed she had a loculated right pleural effusion. PAST MEDICAL HISTORY: 1. Hypertension. 2. Repeated upper respiratory infections. 3. Ovarian cyst. 4. Osteoarthritis. 5. Remote history of cigarette smoking. PAST SURGICAL HISTORY: 1. 3, para 3, abortus 0 (3 spontaneous vaginal deliveries). 2. Right total knee arthroplasty. 3. Left total hip arthroplasty. 4. Excision of ovarian cyst. MEDICATIONS: 1. Albuterol. 2. Lasix. 3. Lidex ointment to her scalp. 4. Diltiazem. 5. Clindamycin. 6. Tenormin. 7. Proventil. ALLERGIES: PENICILLIN CAUSES LOCAL HIVES. REVIEW OF SYSTEMS: The patient has had night sweats. She has been quite weak, fatigued. She has some weight loss. She has been anorexic. She denies nausea or vomiting. She does not feel that she has had a fever. She denies any changes in her vision or hearing. She denies any oral pain or oral ulcers. She does have marked dyspnea on exertion requiring oxygen at home and has sputum production. She denies palpitations. She does have some right-sided chest pain. She denies nausea or vomiting or diarrhea. She denies any skin breakdown other than the anterior aspect of the right lower leg where she has a significant skin tear. She does have some hemosiderin deposition and some dependent edema of her lower extremities. She denies any neurologic symptoms such as amaurosis fugax. PHYSICAL EXAMINATION: GENERAL: This is a thin white female who appears younger than stated age of 89. She is awake, alert, oriented. HEAD, EYES, EARS, NOSE, AND THROAT: Her extraocular movements are intact. Pupils are equal, round and reactive. Sclerae are anicteric. She has no nasolabial flattening. Oral mucosa is moist. She has no obvious oral mucosal lesions. NECK: Supple. She has no tracheal deviation. She has no carotid bruits, lymphadenopathy. CHEST: She does have decreased breath sounds on the right, especially laterally. She has a regular rate and rhythm of her heart. ABDOMEN: Soft, really nontender. She has good bowel sounds. I can palpate pedal pulses. Better on the right than the left. She does have some mild hemosiderin deposition, but no edema now. She has no joint effusions. NEUROLOGICAL: She is awake, alert and oriented, no focal deficits. DATA: I reviewed her white count, it was 14,390, hemoglobin 11.2. Creatinine is a bit elevated. Her CT scan shows a loculated pneumothorax on the right with homogenous fluid. White count on admission was 14,390, has dropped to 12,440 today. Platelet count has been stable. ASSESSMENT AND PLAN: Empyema, right chest. We are going to insert a PleurX catheter as I am quite concerned about this woman's symptoms and her age and CT findings.
--- NOTE | 2016-06-24 16:17 | OPERATIVE REPORT ---
DATE OF OPERATION: 06/24/2016 DATE OF PROCEDURE: 06/24/2016. PROCEDURE: Insertion of right PleurX catheter. SURGEON: Dr. Davis. SPECIFICS OF THE PROCEDURE: Ultrasound guidance a window was found in the lateral right chest on the lower aspect. The patient was prepped and draped in the usual sterile fashion when appropriate time out had been called. A 25 gauge needle, 1% Xylocaine without epinephrine was used to anesthetize the skin and subcutaneous tissues. A large bore needle was used to anesthetize the deeper tissues and pleura. The pleura did feel thickened. We got gross pus back from this. A guidewire was inserted through the needle and needle removed. About 10 cm anterior to this, another skin wheal was raised 25 gauge needle, 1% Xylocaine. Both of these incisions were about a cm long. A long needle was used to anesthetize subcutaneous tissues between the 2 incisions and a tunneler was attached to the PleurX catheter and dragged from the anterior to posterior incision and the tunneler removed. Introducer sheath was slid over the guidewire and inner cannula and peel away sheath was slid over the guidewire posteriorly. Inner cannula and guidewire were removed. I then inserted the PleurX catheter through this peel away sheath which was removed. It was sutured in place with heavy silk suture and then the posterior incision was closed with #2 silk sutures. Approximately 450 mL of thick obvious pus was drained. She tolerated it well. A chest x-ray showed improvement. I attest to the content of the Intraoperative Record and any orders documented therein. Any exceptio ns are noted below.
--- NOTE | 2016-06-24 16:18 | Progress Note ---
Progress Note Date of Service Jun 24, 2016. Progress Note 10 mg placed in pleurex at 0800 this am. Pleurex drained 1 hour later and 5 mg dornase placed at 1pprox. 1 pm. Peurex drained again 1 hour later for 50 cc rust colored fluid. 10 additional mg TPA instilled at 2:30--pleurex drained about 1.5 hours later for 100 cc rust colored fluid. 5 mg dornase placed again. RN to drain in 2 hours.
[2016-06-24] MEDS: ACETAMINOPHEN IV 1,000 MG in EMPTY BAG 0 ML IV SCH ×2 (17:22→23:00)
[2016-06-25] VITALS (17 sets, daily range): BP systolic 69–124; BP diastolic 43–77; PULSE 46–87; TEMP 36.3–36.7; O2SAT 53–95
[2016-06-25] MEDS: ACETAMINOPHEN IV 1,000 MG in EMPTY BAG 0 ML IV SCH ×3 (02:18→17:31)
[2016-06-25] MEDS: AZTREONAM IV 1,000 MG in DEXTROSE 5% 100ML 100 ML IV SCH ×3 (03:54→22:09)
[2016-06-25] MEDS: ALBUT/IPRATROP 3MG/0.5MG NEB 3 ML VIAL INH SCH ×5 (05:44→20:02)
[2016-06-25 06:07] LABS: HEMATOCRIT 33.7 % (37-47); MEAN CELL VOLUME 93.1 fL (80-100); MEAN CORPUSCULAR HEMOGLOBIN 29.6 pg (25-34); MEAN CORPUSCULAR HGB CONC 31.8 g/dl (32-36); MEAN PLATELET VOLUME 10.2 fL (7.4-10.4); PLATELET COUNT 444 K/uL (130-400); RED BLOOD COUNT 3.62 M/uL (4.2-5.4); WHITE BLOOD COUNT 13.01 K/uL (4.8-10.8)
[2016-06-25] MEDS ORDERED: ALTEPLASE, RECOMBINANT 1 MG/ML 2 ML VIAL IPL ONE (06:30)
[2016-06-25 06:36] LABS: BASO % 0.1 %; BASO ABS # 0.01 K/uL (0-0.2); COMPLETE YES; EOS % 0.1 %; IG% 0.3 %; LYMPH % 6.3 %; LYMPH ABS # 0.82 K/uL (1.2-3.4); MONO % 3.2 %
[2016-06-25 06:41] LABS: CREATININE 2.8 mg/dl (0.60-1.20)
--- NOTE | 2016-06-25 07:29 | DIAGNOSTIC IMAGING REPORT ---
CHEST ONE VIEW PORTABLE CLINICAL HISTORY: effusion fusion COMPARISON STUDY: 06/24/2016 Findings: Repositioning of a right basilar chest tube. Improved aeration right base. No significant residual pneumothorax. Left lung remains clear. IMPRESSION: Improved aeration right base status post right basilar chest tube repositioning. No significant pneumothorax. Electronically signed by: Abrahan Godwin M.D. 06/25/2016 7:26 AM Dictated Date/Time: 06/25/2016 7:26 AM
--- NOTE | 2016-06-25 08:34 | OPERATIVE REPORT ---
DATE OF OPERATION: 06/25/2016 DATE OF PROCEDURE: 06/25/2016. PROCEDURE: Subsequent instillation of TPA via right PleurX catheter. SURGEON: Dr. Davis. SPECIFICS OF PROCEDURE: At the patient's bedside I accessed the PleurX catheter. Ten milligrams of tissue plasminogen activator been reconstituted in 60 mL of normal saline and under sterile conditions with Angiocath this was injected into the PleurX catheter. We will drain her again in an hour and then give her dornase. She tolerated it quite well. I am quite happy with her clinical response. I attest to the content of the Intraoperative Record and any orders documented therein. Any exceptio ns are noted below.
--- NOTE | 2016-06-25 08:37 | SURGERY PROGRESS NOTE ---
DATE: 06/25/2016 Ms. Griffiths was seen today on 06/25/2016. She had a pretty quiet night. We had not drained a great deal from her chest tube after our initial PleurX yesterday. She put out 150 mL yesterday, only put out 25 mL this morning. We did instill 10 mg of tissue plasminogen activator in 60 mL of normal saline this morning. She tolerated that well. I was very happy with her x-ray. It appears that her lung is totally expanded. I see very little in the way of fluid. I think we should continue the MIST-2 protocol through tomorrow and then reassess with a CT scan. I think she looks quite good and her vital signs are stable. She is afebrile. Her white count this morning is 13,010. Her hemoglobin is stable at 10.7. I do have a concern about her renal function. It appears to me when she presented with sodium of 146 and a BUN and creatinine of 75 and 2.40, that she was indeed dry. Having said that, her beta natriuretic peptide was over 14,000. I discussed this with Dr. Karine Sierra from the hospitalist service and I think it would be prudent to add some IV fluid as she certainly does not have signs or symptoms of failure. Her creatinine this morning is up to 2.8. We will see how she responds to IV fluid. Put the dornase in a little later this morning.
[2016-06-25] MEDS: BOOST BREEZE NUTRITION DRINK 1 BOX PO SCH ×3 (08:46→16:19)
[2016-06-25] MEDS: HEPARIN SOD 5000 UNIT/0.5 ML CARP SQ SCH ×2 (09:07→21:52)
[2016-06-25] MEDS: SODIUM CHLORIDE 0.9% 1000ML 1,000 ML IV SCH (09:08)
[2016-06-25] MEDS ORDERED: DORNASE ALFA 2.5MG 5 ML in SYRINGE 25 ML IPL ONE (09:30)
[2016-06-25] MEDS: SACCHAROMYCES BOUL (FLORASTOR) 250 MG CAP PO SCH (10:05)
[2016-06-25] MEDS: DILTIAZEM HCL (TIAzac) 180 MG CAPCR PO SCH (10:06)
--- NOTE | 2016-06-25 10:49 | Progress Note ---
Subjective Date of Service: Jun 25, 2016. Subjective Pt evaluation today including: conversation w/ patient, conversation w/ family , conversation w/ sales consultant insurance Pt is feeling much improved today. She is OOB to chair and had a better appetite this AM. She did get lightheaded with ambulation to the bathroom this AM. Still with SOB with ambulation, but not at rest. No chest pain. Pt always alternates between constipation and diarrhea at baseline. Having slightly loose stools since [employer]GER. Pt denies fever, abd pain, n/v, LE pain or swelling. ROS as noted above, otherwise neg. Problem List Medical Problems: (1) Constipation Status: Acute (2) Eczema Status: Acute (3) Hypoxia Status: Acute (4) Peripheral edema Status: Acute (5) Renal insufficiency Status: Acute (6) Right lower lobe pneumonia Status: Acute Objective Vital Signs Date Time Temp Pulse Resp B/P Pulse Ox O2 Delivery O2 Flow Rate FiO2 06/25/16 08:44 68 20 113/62 90 Nasal Cannula 4.0 06/25/16 07:42 84 16 90 Nasal Cannula 2.0 06/25/16 07:00 36.4 53 18 124/77 95 Nasal Cannula 3.0 06/25/16 06:45 Nasal Cannula 3.0 06/25/16 05:44 58 16 93 Nasal Cannula 3.0 06/25/16 04:15 36.7 56 18 119/68 92 3.0 06/25/16 00:01 36.7 59 20 117/69 90 3.0 06/24/16 23:20 90 Nasal Cannula 3.0 06/24/16 20:04 62 16 90 Nasal Cannula 4.0 06/24/16 16:00 69 16 90 Nasal Cannula 3.0 06/24/16 15:20 88 Nasal Cannula 3.0 06/24/16 15:05 36.9 69 18 153/69 88 Nasal Cannula 2.0 06/24/16 11:58 85 16 93 Nasal Cannula 3.0 Physical Exam Comments: General Appearance: WD/WN, no apparent distress Respiratory/Chest: no respiratory distress, + decreased breath sounds-- improving, + crackles--improving, + pertinent finding (no wheezing) Cardiovascular: regular rate, rhythm, no edema Abdomen: non tender, soft Extremities: non-tender, no pedal edema Neurologic/Psychiatric: alert, normal mood/affect, oriented x 3 Skin: normal color, warm/dry Laboratory Results Last 24 Hours Test 06/25/16 05:34 White Blood Count 13.01 K/uL Red Blood Count 3.62 M/uL Hemoglobin 10.7 g/dL Hematocrit 33.7 % Mean Corpuscular Volume 93.1 fL Mean Corpuscular Hemoglobin 29.6 pg Mean Corpuscular Hemoglobin Concent 31.8 g/dl Platelet Count 444 K/uL Mean Platelet Volume 10.2 fL Neutrophils (%) (Auto) 90.0 % Lymphocytes (%) (Auto) 6.3 % Monocytes (%) (Auto) 3.2 % Eosinophils (%) (Auto) 0.1 % Basophils (%) (Auto) 0.1 % Neutrophils # (Auto) 11.71 K/uL Lymphocytes # (Auto) 0.82 K/uL Monocytes # (Auto) 0.42 K/uL Eosinophils # (Auto) 0.01 K/uL Basophils # (Auto) 0.01 K/uL RDW Standard Deviation 50.9 fL RDW Coefficient of Variation 15.1 % Immature Granulocyte % (Auto) 0.3 % Immature Granulocyte # (Auto) 0.04 K/uL Creatinine 2.80 mg/dl Est Creatinine Clear Calc Drug Dose 10.0 ml/min Estimated GFR () 16.8 Estimated GFR (Non- 14.5 Assessment and Plan 89 yo female with worsening right sided pneumonia now with right sided effusion - Right sided pneumonia with effusion: CT noted for R sided empyema with tree-in -bud noted b/l Also with prominent mediastinal lymph nodes thought to be reactive CT surg performed thoracentesis 06/24, testing pending treat pneumonia with Levaquin and Aztreonam (allergies) Repeat CXR shows improvement and pt is clinically improving nebulizers no evidence of sepsis, BP actually high, minimal hypoxia likely because left lung clear - HTN: patient admits that she had not taken medications for two days will continue Atenolol and Diltiazem with hold parameters - Acute renal failure: CKD stage III/IV Likely related to dehydration: NSS at 50cc/hr - Diarrhea: just started [employer], cdiff neg and stool cx pending. 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 is in [place] with one of their other children at present. May need HH at d/c if stable for d/c to home vs placement. If there is placement needed, arrangements may also be needed for if unable to remain in [place].
[2016-06-25] MEDS ORDERED: DORNASE ALFA 2.5MG 5 ML in SYRINGE 25 ML IPL SCH (14:00)
[2016-06-25] MEDS ORDERED: ALTEPLASE, RECOMBINANT 1 MG/ML 2 ML VIAL IV SCH (14:00)
[2016-06-25] MEDS ORDERED: NURSING VERBAL MED ORDER ONE ×2 (15:15→19:15)
[2016-06-25] MEDS ORDERED: SODIUM CHLORIDE 0.9% 250ML 250 ML IV ONE ×2 (15:30→20:30)
--- NOTE | 2016-06-25 17:09 | Progress Note ---
Progress Note Date of Service Jun 25, 2016. Progress Note Pleurex drained for about 50 cc fluid. [address] catheters and drained about 1 hour later for about 30 cc fluid. 5 mg dornase placed in catheters. RN to drain in 2 hours.
[2016-06-25] MEDS: LEVOFLOXACIN / D5W 500 MG in PREMIXED IN D5W 100 ML IV SCH (17:56)
--- NOTE | 2016-06-25 19:16 | OPERATIVE REPORT ---
DATE OF OPERATION: 06/25/2016 PROCEDURE: Instillation of dornase right PleurX catheter. SURGEON: Dr. Davis. SPECIFICS OF PROCEDURE: On the morning of 06/25/2016 after I had instilled tissue plasminogen activator and then drained it. I sterilely prepped the end of her PleurX catheter and injected 5 mg of dornase/Pulmozyme and 30 mL of normal saline without difficulty. We will redrain her in the next 1-2 hours. I attest to the content of the Intraoperative Record and any orders documented therein. Any exceptio ns are noted below.
[2016-06-26] VITALS (8 sets, daily range): BP systolic 93–112; BP diastolic 58–75; PULSE 52–63; TEMP 36.4–36.6; O2SAT 91–97
[2016-06-26] MEDS: ACETAMINOPHEN IV 1,000 MG in EMPTY BAG 0 ML IV SCH ×2 (02:26→09:54)
[2016-06-26] MEDS: AZTREONAM IV 1,000 MG in DEXTROSE 5% 100ML 100 ML IV SCH ×3 (04:00→20:44)
[2016-06-26] MEDS: SODIUM CHLORIDE 0.9% 1000ML 1,000 ML IV SCH (04:01)
[2016-06-26] MEDS ORDERED: SODIUM CHLORIDE 0.9% IPL ONE ×2 (06:30)
[2016-06-26] MEDS ORDERED: RECOMBINANT IPL ONE ×2 (06:30)
[2016-06-26] MEDS ORDERED: ALTEPLASE, RECOMBINANT 1 MG/ML 2 ML VIAL IPL ONE ×2 (06:30→15:00)
[2016-06-26] MEDS ORDERED: DORNASE ALFA 2.5MG 5 ML in SYRINGE 25 ML IPL ONE ×2 (06:30→15:00)
[2016-06-26] MEDS ORDERED: ALTEPLASE IPL ONE ×2 (06:30)
[2016-06-26] MEDS ORDERED: DORNASE ALFA (2500U) 2.5MG/2.5ML IPL ONE ×2 (06:30→15:00)
[2016-06-26 07:22] LABS: HEMATOCRIT 28.5 % (37-47); MEAN CELL VOLUME 92.5 fL (80-100); MEAN CORPUSCULAR HEMOGLOBIN 29.5 pg (25-34); MEAN CORPUSCULAR HGB CONC 31.9 g/dl (32-36); MEAN PLATELET VOLUME 10.1 fL (7.4-10.4); PLATELET COUNT 389 K/uL (130-400); RED BLOOD COUNT 3.08 M/uL (4.2-5.4); WHITE BLOOD COUNT 13.04 K/uL (4.8-10.8)
[2016-06-26 07:52] LABS: BUN/CREATININE RATIO 26.2 (10-20); CALCIUM 7.5 mg/dl (8.5-10.1); CREATININE 3.1 mg/dl (0.60-1.20); POTASSIUM 3.9 mmol/L (3.5-5.1)
[2016-06-26] MEDS: BOOST BREEZE NUTRITION DRINK 1 BOX PO SCH ×3 (08:00→17:36)
--- NOTE | 2016-06-26 08:01 | DIAGNOSTIC IMAGING REPORT ---
SINGLE VIEW CHEST CLINICAL HISTORY: Empyema. FINDINGS: An AP, portable, upright chest radiograph is compared to study dated 06/25/2016 and correlated with chest CT dated 06/23/2016. The examination is degraded by portable technique and patient rotation. A chest tube at the right lung base is unchanged. A small loculated hydropneumothorax is seen at the right lung base, and has modestly increased in size from yesterday. There is a small volume of residual fluid right lung base with associated right basilar consolidation. Nodular airspace opacities are seen in the right upper lung. Left lung appears clear. Advanced emphysema is observed. The cardiomediastinal silhouette is unremarkable. There is advanced atherosclerotic calcification of the thoracic aorta. The skeletal structures are osteopenic. The bony thorax is grossly intact. Extensive subcutaneous emphysema is seen along the right chest wall and right lower neck. This is increased from yesterday. IMPRESSION: 1. A chest tube at the right lung base is unchanged in position. There is a small loculated right basilar hydropneumothorax, increased in size from yesterday. 2. There is a small volume of residual pleural fluid at the right lung base with right basilar consolidation. 3. Increasing subcutaneous emphysema is noted along the right chest wall. 4. Emphysema. The left lung appears clear. Electronically signed by: Augustine Peralta M.D. 06/26/2016 7:59 AM Dictated Date/Time: 06/26/2016 7:43 AM
[2016-06-26] MEDS: ALBUT/IPRATROP 3MG/0.5MG NEB 3 ML VIAL INH SCH ×4 (08:06→19:55)
--- NOTE | 2016-06-26 08:14 | Surgery Progress Note ---
Subjective Date of Service: Jun 26, 2016. Pt. notes her breathing feels better than yesterday Objective Vitals Date Time Temp Pulse Resp B/P Pulse Ox O2 Delivery O2 Flow Rate FiO2 06/26/16 08:06 58 16 96 Nasal Cannula 3.0 06/26/16 07:25 36.6 57 20 107/63 96 Nasal Cannula 3.0 06/26/16 07:25 96 Nasal Cannula 3.0 06/25/16 23:10 36.6 56 18 98/63 94 Nasal Cannula 3.0 06/25/16 20:02 47 16 95 Nasal Cannula 4.0 06/25/16 19:40 92 Nasal Cannula 4.0 06/25/16 18:51 36.5 46 18 105/62 92 Nasal Cannula 4.0 06/25/16 17:36 50 88/48 92 06/25/16 16:16 99/64 94 Nasal Cannula 4.0 06/25/16 14:55 87 53 06/25/16 14:47 36.3 55 16 101/58 85 Nasal Cannula 4.0 06/25/16 14:40 69/43 06/25/16 14:28 49 16 92 Nasal Cannula 4.0 06/25/16 11:18 60 16 94 Nasal Cannula 4.0 06/25/16 08:44 68 20 113/62 90 Nasal Cannula 4.0 Physical Exam General: No distress CV: + RRR Pulmonary: + pertinent finding (decreased at bases), No accessory muscle use, No respiratory distress Extremities: No calf tenderness Neurologic: + alert & oriented x 3 Radiology CXR today shows improvement since fluid drained; there remains evidence of trapped lung at right base Drains / Tubes pleurex (right sided; 10 cc drained this am ) Assessment & Plan 89 year old female with empyema -pleurex placed on 06/24/16 -MIST II protocol inplace and will continue today--10 mg alteplace and 5 mg dornase placed this morning at appx 7:15 and 8:15 respectively; pleurex drained for about 50 cc 1 hour after TPA placed -will repeat CT scan tomorrow am -cultures of pleural fluid show streptococcus -continue abx --10 mg alteplace and 5 mg dornase placed this afternoon at approx 3:15 and 4: 15 respectively; catheter drained for about 30 cc 1 hour after TPA placed
[2016-06-26] MEDS: SACCHAROMYCES BOUL (FLORASTOR) 250 MG CAP PO SCH ×2 (08:39→08:48)
[2016-06-26] MEDS: DILTIAZEM HCL (TIAzac) 180 MG CAPCR PO SCH ×2 (08:39→08:42)
[2016-06-26] MEDS: HEPARIN SOD 5000 UNIT/0.5 ML CARP SQ SCH ×2 (08:53→20:52)
[2016-06-26] MEDS: D5W AND 1/2NSS 1,000 ML IV SCH (09:54)
[2016-06-26] MEDS: MEGESTROL ACETATE SUSP 400 MG/10 ML UDC PO SCH (12:47)
[2016-06-26] MEDS: CEROVITE ADV FORMULA TAB PO SCH (12:48)
[2016-06-26] MEDS: NYSTATIN SUSP 500,000 U/5 ML UDC PO SCH ×3 (13:41→20:44)
[2016-06-26] MEDS ORDERED: RECOMBINANT IV ONE ×2 (15:00)
[2016-06-26] MEDS ORDERED: ALTEPLASE IV ONE ×2 (15:00)
[2016-06-26] MEDS ORDERED: SODIUM CHLORIDE 0.9% IV ONE ×2 (15:00)
[2016-06-26 16:31] LABS: REFERENCE QUEST TEST REPORT
--- NOTE | 2016-06-26 18:57 | Progress Note ---
Subjective Date of Service: Jun 26, 2016. Subjective Pt evaluation today including: conversation w/ patient, conversation w/ family (daughter at bedside), physical exam, chart review, lab review, review of studies (cxr), review of inpatient medication list Pain: at chest tube site PO Intake: poor Patient very weak with little appetite. Has lost a significant amount of weight (20+ pounds) over the last 6 months. Much of that weight loss was over the past month. Reports sob with going to the bathroom. Mouth is sore. Problem List Medical Problems: (1) Constipation Status: Acute (2) Eczema Status: Acute (3) Hypoxia Status: Acute (4) Peripheral edema Status: Acute (5) Renal insufficiency Status: Acute (6) Right lower lobe pneumonia Status: Acute Review of Systems Constitutional: + fatigue, + weight loss, No chills, No fever Respiratory: + dyspnea on exertion Cardiac: + chest pain, + see HPI Abdomen: + diarrhea, No pain Objective Vital Signs Date Time Temp Pulse Resp B/P Pulse Ox O2 Delivery O2 Flow Rate FiO2 06/26/16 15:39 57 16 95 Nasal Cannula 2.0 06/26/16 15:27 Nasal Cannula 2.0 06/26/16 14:48 36.4 53 16 93/58 91 Nasal Cannula 2.0 06/26/16 12:15 53 97/60 06/26/16 11:38 52 16 94 Nasal Cannula 2.0 06/26/16 08:06 58 16 96 Nasal Cannula 3.0 06/26/16 07:25 36.6 57 20 107/63 96 Nasal Cannula 3.0 06/26/16 07:25 96 Nasal Cannula 3.0 06/25/16 23:10 36.6 56 18 98/63 94 Nasal Cannula 3.0 06/25/16 20:02 47 16 95 Nasal Cannula 4.0 06/25/16 19:40 92 Nasal Cannula 4.0 06/25/16 18:51 36.5 46 18 105/62 92 Nasal Cannula 4.0 Physical Exam General Appearance: no apparent distress, + thin ENT: + pertinent finding (thrush plaques tongue) Neck: no JVD Respiratory/Chest: no respiratory distress, no accessory muscle use, + decreased breath sounds (right base), + rales (right base) Cardiovascular: regular rate, rhythm, no gallop Abdomen: normal bowel sounds, non tender, soft, no organomegaly Extremities: no pedal edema Neurologic/Psychiatric: alert, oriented x 3 Skin: + pertinent finding (chest tube in place, right posterior hemithorax) Laboratory Results Last 24 Hours Test 06/26/16 06:38 White Blood Count 13.04 K/uL Red Blood Count 3.08 M/uL Hemoglobin 9.1 g/dL Hematocrit 28.5 % Mean Corpuscular Volume 92.5 fL Mean Corpuscular Hemoglobin 29.5 pg Mean Corpuscular Hemoglobin Concent 31.9 g/dl RDW Standard Deviation 51.1 fL RDW Coefficient of Variation 15.3 % Platelet Count 389 K/uL Mean Platelet Volume 10.1 fL Sodium Level 142 mmol/L Potassium Level 3.9 mmol/L Chloride Level 107 mmol/L Carbon Dioxide Level 25 mmol/L Anion Gap 10.0 mmol/L Blood Urea Nitrogen 81 mg/dl Creatinine 3.10 mg/dl Est Creatinine Clear Calc Drug Dose 9.0 ml/min Estimated GFR () 14.8 Estimated GFR (Non- 12.8 BUN/Creatinine Ratio 26.2 Random Glucose 69 mg/dl Calcium Level 7.5 mg/dl Assessment and Plan 89yo female: 1. acute hypoxic resp failure - 2nd to multifocal community-acquired pneumonia and right-sided empyema. Slow progress. 2. right-sided empyema - 2nd to strep species. Await final ID/sens. Cont aztreonam & levaquin. Day #4 of abx. Will need PROLONGED course of abx. 3. hypoglycemia - 2nd to infection/poor appetite. Add dextrose to fluids. Check cortisol in am. 4. severe protein calorie malnutrition - cont boost breeze. 5. COPD - based on CT chest findings - continue nebs. 6. acute renal failure in the setting of CKD stage 5 - continue hydration, repeat BMP in am. 7. anemia - suspect due to anemia of chronic disease. Consider Fe studies, b12 , folate in am. 8. hypotension - HOLD all home BP meds. Suspect multifactorial causes including weight loss, dehydration, sepsis, etc. 9. sepsis 2nd to #1, #2 - improved. 10. DVT proph - heparin. 11. diarrhea - check c. diff toxin once again. 12. thrush - nystatin QID. 13. anorexia - 2nd to #1, #2 - add megace daily. daughter updated PT, OT for deconditioning Continued [facility] stay due to: inadequate po fluid intake, ambulation difficulties , multiple IV medications needed Discharge planning: uncertain
[2016-06-26] MEDS: ACETAMINOPHEN 500 MG TAB PO SCH ×2 (19:38→19:49)
[2016-06-27] VITALS (10 sets, daily range): BP systolic 94–124; BP diastolic 57–70; PULSE 62–73; TEMP 36.3–36.7; O2SAT 93–99
[2016-06-27] MEDS: AZTREONAM IV 1,000 MG in DEXTROSE 5% 100ML 100 ML IV SCH ×3 (03:51→20:37)
[2016-06-27] MEDS: ACETAMINOPHEN 500 MG TAB PO SCH ×3 (06:00→22:00)
[2016-06-27] MEDS: D5W AND 1/2NSS 1,000 ML IV SCH (06:27)
[2016-06-27 07:04] LABS: CREATININE 3.5 mg/dl (0.60-1.20)
[2016-06-27 07:08] LABS: BUN/CREATININE RATIO 24.7 (10-20); CALCIUM 7.4 mg/dl (8.5-10.1); CREATININE 3.6 mg/dl (0.60-1.20); POTASSIUM 3.6 mmol/L (3.5-5.1)
[2016-06-27 07:18] LABS: THYROID STIMULATING HORMONE 3.9 uIu/ml (0.300-4.500)
[2016-06-27] MEDS: BOOST BREEZE NUTRITION DRINK 1 BOX PO SCH ×3 (07:34→17:04)
[2016-06-27] MEDS: ALBUT/IPRATROP 3MG/0.5MG NEB 3 ML VIAL INH SCH ×4 (07:44→19:17)
--- NOTE | 2016-06-27 09:24 | DIAGNOSTIC IMAGING REPORT ---
CT OF THE CHEST WITHOUT IV CONTRAST CLINICAL HISTORY: Empyema COMPARISON STUDY: 06/23/2016 CT DOSE: 205.60 mGy.cm TECHNIQUE: CT of the thorax was performed from the thoracic inlet to the lung bases. Images are reviewed in the axial, sagittal, and coronal planes. IV contrast was not administered for this examination. FINDINGS: Thyroid: Imaged portions of the thyroid gland are normal in appearance. Thoracic aorta: There is a 17 mm saccular aneurysm arising from the left lateral aspect of the proximal aortic arch. This remains unchanged. Heart: There are coronary artery calcifications present. Lungs and pleural spaces: Since the prior study, a right-sided chest tube has been placed. There is extensive right-sided subcutaneous emphysema. There is a small right basilar pneumothorax with a pleural separation of 13 mm. There is been marked interval reduction in the amount of right pleural fluid. The pleural collection the right base measures 14 mm in thickness. There is right lower lobe pulmonary consolidative change. There is right lower lobe and right middle lobe bronchiectasis. There is persistent tree-in-bud nodularity within the right upper lobe and left lower lobe, likely on an infectious basis Mediastinum: There are borderline enlarged mediastinal lymph nodes, similar to the preceding study. Maribell: There is no evidence of pathologic hilar adenopathy given the limitations of a noncontrast study Axilla: Clear. Upper abdomen: Partially visualized upper abdominal viscera is within normal limits. Skeletal structures: There are no lytic or blastic osseous lesions. IMPRESSION: 1. Interval placement of a right-sided chest tube with drainage the patient's right-sided empyema. 14 mm in thickness residual right pleural fluid collection 2. Interval development of extensive right-sided subcutaneous emphysema 3. Right basilar pneumothorax the pleural separation of 13 mm 4. Persistent multifocal tree-in-bud airspace opacities, likely infectious/inflammatory 5. Borderline enlarged be subtle lymph nodes unchanged the prior study 6. Stable bronchiectasis 7. 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 8. Emphysema Electronically signed by: Kelvin Valdovinos M.D. 06/27/2016 9:22 AM Dictated Date/Time: 06/27/2016 9:15 AM
[2016-06-27] MEDS: NYSTATIN SUSP 500,000 U/5 ML UDC PO SCH ×4 (09:33→20:37)
[2016-06-27] MEDS: MEGESTROL ACETATE SUSP 400 MG/10 ML UDC PO SCH (09:35)
[2016-06-27] MEDS: CEROVITE ADV FORMULA TAB PO SCH (09:36)
[2016-06-27] MEDS: SACCHAROMYCES BOUL (FLORASTOR) 250 MG CAP PO SCH (09:36)
[2016-06-27] MEDS: HEPARIN SOD 5000 UNIT/0.5 ML CARP SQ SCH ×2 (10:09→20:36)
[2016-06-27] MEDS: D5W AND NSS 1,000 ML IV SCH (11:20)
--- NOTE | 2016-06-27 11:44 | DIAGNOSTIC IMAGING REPORT ---
EXAMINATION: RENAL ULTRASOUND CLINICAL HISTORY: Renal insufficiency COMPARISON STUDY: None FINDINGS: The right kidney measures 8.4 cm. The left kidney measures 7.8 cm. There is no evidence of hydronephrosis. There is a 1.5 cm lower pole right renal cyst. There is increased renal cortical echogenicity consistent with medical renal disease. No bladder abnormalities are visualized. Bilateral ureteral jets were visualized. The examination was limited from a technical standpoint as the patient was unable to cooperate with breath holding. IMPRESSION : 1. Increased renal cortical echogenicity consistent with medical renal disease 2. No evidence of hydronephrosis 3. 15 mm right renal cyst Electronically signed by: Kelvin Valdovinos M.D. 06/27/2016 11:42 AM Dictated Date/Time: 06/27/2016 11:41 AM
--- NOTE | 2016-06-27 12:24 | Surgery Progress Note ---
Subjective Date of Service: Jun 27, 2016. Pt. notes no SOB but feels fatigued. She has a cough--difficult to expectorate secretions Objective Vitals Date Time Temp Pulse Resp B/P Pulse Ox O2 Delivery O2 Flow Rate FiO2 06/27/16 12:11 36.3 72 20 124/68 95 Nasal Cannula 2.0 06/27/16 11:56 64 16 95 Nasal Cannula 2.0 06/27/16 07:54 95 Nasal Cannula 2.0 06/27/16 07:46 36.7 64 20 122/70 95 Nasal Cannula 2.0 06/27/16 07:44 62 16 96 Nasal Cannula 2.0 06/27/16 07:15 Nasal Cannula 2.0 06/26/16 23:45 Nasal Cannula 2.0 06/26/16 22:46 36.5 63 16 112/75 97 Nasal Cannula 2.0 06/26/16 19:55 56 16 95 Nasal Cannula 2.0 06/26/16 15:39 57 16 95 Nasal Cannula 2.0 06/26/16 15:27 Nasal Cannula 2.0 06/26/16 14:48 36.4 53 16 93/58 91 Nasal Cannula 2.0 Physical Exam General: No distress CV: + RRR Pulmonary: + rhonchi, No accessory muscle use, No respiratory distress Assessment & Plan 89 year old female with empyema -pleurex placed on 06/24/16 -repeat CT Scan noted--small amount of residual fluid noted; parenchymal infiltrates noted -micro noted--Strep intermedius with no sensitivities: -lab called and asked to obtain sensitivity--it is noted that organism is not viable for sensitivity -will plan on sending repeat culture tomorrow
--- NOTE | 2016-06-27 14:11 | Nephrology Consultation ---
Nephrology Consultation Date & Providers Date of Consultation: Jun 27, 2016. Primary Care Provider: Joe Murphy M.D. Referring Provider: Reason for Consultation Evaluation and management for acute kidney injury with history of advanced chronic kidney disease. History of Present Illness Sherrie is a 82 was 10-year-old female with past medical history significant for hypertension, stage 4 chronic kidney disease and recent recurrent pneumonia admitted to the hospital with av pneumonia and empyema. Nephrology consult was requested as she developed oliguric acute kidney injury. Electronic medical records including labs and imaging are reviewed in detail during patient's visit. Her daughters Beryl and Hannah as well as her was at the room during the patient's visit. Was admitted to the hospital on 06/22/2016 with recurrent episode of pneumonia with failed outpatient antibiotic treatment and found to have pneumonia and empyema. She had a right chest tube placed and currently on antibiotic. Culture was positive for Streptococcus intermedius and currently she is on levofloxacin and aztreonam. She has stage 4 chronic kidney disease at least since 2011, baseline creatinine has been variable from 2-2.5, estimated GFR around 20. On admission her creatinine was 2.4 which was her baseline but over last few days her creatinine slowly decline and creatinine was 3.6 this morning. Urine output seems to have dropped over last 24 hours. No urinalysis available. electrolyte including potassium and bicarbonate has been normal. Renal ultrasound showed bilateral at trophic kidney with cortical thinning right kidney 8.4 and left kidney 7.6 centimeter and significant cortical echogenicity as well as right sided simple cyst. No hydronephrosis. Patient was un aware of her chronic kidney disease. No family history of chronic kidney disease or end-stage renal disease. She denies any autoimmune disorder, diabetes or coronary artery disease. Has history of hypertension for last almost 5 years and seems to be pretty well control, was on diltiazem. She has not been on any SONA-inhibitor/ARB or NSAID use although she has been on NSAID at a for long time until a year ago. at home she has been having significantly poor p.o. intake. Allergies Coded Allergies: Penicillins (Verified Allergy, Intermediate, hives, 06/23/16) Inpatient Medications Current Inpatient Medications Medications (Trade) Dose Ordered Sig/Lavonne Route Start Time Stop Time Status Last Admin Dose Admin Acetaminophen (Tylenol Tab) 650 mg Q4H PRN PO 06/23/16 18:30 07/23/16 18:29 Future Hold Ondansetron HCl (Zofran Inj) 4 mg Q6H PRN IV 06/23/16 18:30 07/23/16 18:29 Heparin Sodium (Porcine) (Heparin Sq 5000 Unit/0.5ml) 5,000 unit Q12 SQ 06/23/16 21:00 07/23/16 18:29 06/27/16 10:09 5,000 UNIT Atenolol 100 mg 100 mg DAILY PO 06/24/16 09:00 07/24/16 08:59 Future Hold 06/25/16 10:06 100 MG Levofloxacin 500 mg/Prmx 100 ml @ 100 mls/hr Q48H IV 06/25/16 18:30 06/29/16 23:00 06/25/16 17:56 100 MLS/HR Aztreonam/Dextrose (Azactam IV/D5 100ml) 110 ml @ 100 mls/hr Q8H IV 06/24/16 04:00 07/01/16 03:59 06/27/16 12:01 100 MLS/HR Albuterol/ Ipratropium (Duoneb) 3 ml QIDR INH 06/23/16 20:00 07/23/16 19:59 06/27/16 11:56 3 ML Levofloxacin (Consult) 1 ea UD PRN N/A 06/23/16 21:30 07/23/16 21:29 Diltiazem HCl (TIAzac CAP) 180 mg DAILY PO 06/24/16 10:00 07/24/16 09:59 Future Hold 06/25/16 10:06 180 MG Saccharomyces Boulardii (Florastor Cap) 250 mg DAILY PO 06/25/16 09:00 07/25/16 08:59 06/27/16 09:36 250 MG Enteral Nutritional Formula 1 box 1 box AC PO 06/24/16 17:15 07/24/16 17:14 06/27/16 12:01 1 BOX Acetaminophen/ Empty Bag (Ofirmev Iv/ Empty Iv Bag 100ml) 100 ml @ 400 mls/hr Q8H IV 06/25/16 02:00 07/25/16 01:59 Future Hold 06/26/16 09:54 400 MLS/HR Acetaminophen (Tylenol Tab) 1,000 mg Q8 PO 06/26/16 19:00 07/26/16 18:59 06/27/16 13:22 1,000 MG Megestrol Acetate (Megace Susp) 400 mg QAM PO 06/26/16 11:30 07/26/16 11:29 06/27/16 09:35 400 MG Multivitamins/ Minerals (Multivitamin W/ Minerals Tab) 1 tab QAM PO 06/26/16 11:30 07/26/16 11:29 06/27/16 09:36 1 TAB Nystatin 5 ml 5 ml QID PO 06/26/16 13:00 07/06/16 12:59 06/27/16 13:20 5 ML Dextrose/Sodium Chloride (D5W And Nss) 1,000 ml @ 50 mls/hr Q20H IV 06/27/16 10:00 07/27/16 09:59 06/27/16 11:20 50 MLS/HR Guaifenesin (Mucinex Contr Rel Tab) 600 mg Q12 PO 06/27/16 21:00 07/27/16 20:59 Family History FH: HTN (hypertension) FH: cancer FH: kidney disease Heart disease Social History Smoking Status: Former Smoker Drug Use: none Marital Status: Occupation: retired Review of Systems A complete review of systems was performed. Pertinent positives are noted above. All other systems are negative. Physical Exam Date Time Temp Pulse Resp B/P Pulse Ox O2 Delivery O2 Flow Rate FiO2 06/27/16 12:11 36.3 72 20 124/68 95 Nasal Cannula 2.0 06/27/16 11:56 64 16 95 Nasal Cannula 2.0 06/27/16 07:54 95 Nasal Cannula 2.0 06/27/16 07:46 36.7 64 20 122/70 95 Nasal Cannula 2.0 06/27/16 07:44 62 16 96 Nasal Cannula 2.0 06/27/16 07:15 Nasal Cannula 2.0 06/26/16 23:45 Nasal Cannula 2.0 06/26/16 22:46 36.5 63 16 112/75 97 Nasal Cannula 2.0 06/26/16 19:55 56 16 95 Nasal Cannula 2.0 06/26/16 15:39 57 16 95 Nasal Cannula 2.0 06/26/16 15:27 Nasal Cannula 2.0 06/26/16 14:48 36.4 53 16 93/58 91 Nasal Cannula 2.0 GENERAL: Elderly female, AAA x 3, pleasant, ill-appearing, frail, not in any distress. HEENT: Atraumatic, normocephalic. NECK: Supple, no JVD, no carotid bruit appreciated. ENT: No sinus tenderness MOUTH and THROAT: Moist oral mucosa, no oral ulcer or pharyngeal erythema RESPIRATORY: Crackles bilaterally at bases, has right sided chest tube in place. CARDIOVASCULAR: S1, S2 normal, rate rhythm regular. ABDOMEN: Soft, nontender, positive bowel sound. MUSCULOSKELETAL: No CVA tenderness. No joint swelling, erythema or tenderness. Normal range of motion. SKIN: No skin rash EXTREMITY: No lower extremity edema NEURO: No gross focal neurological deficit, speech fluent. PSYCHIATRY: Normal mood and judgment Laboratory Results Last 24 Hours Test 06/26/16 20:54 06/27/16 06:13 Bedside Glucose 87 mg/dl Sodium Level 140 mmol/L Potassium Level 3.6 mmol/L Chloride Level 105 mmol/L Carbon Dioxide Level 25 mmol/L Anion Gap 10.0 mmol/L Blood Urea Nitrogen 89 mg/dl Creatinine 3.60 mg/dl Est Creatinine Clear Calc Drug Dose 7.8 ml/min Estimated GFR () 12.4 Estimated GFR (Non- 10.7 BUN/Creatinine Ratio 24.7 Random Glucose 81 mg/dl Calcium Level 7.4 mg/dl Vitamin B12 Level 722 pg/mL Folate 6.88 ng/mL Thyroid Stimulating Hormone (TSH) 3.900 uIu/ml Cortisol AM Sample 22.73 mcg/dl Impression (1) Acute kidney injury (2) Stage 4 chronic kidney disease (3) Anemia (4) Empyema lung (5) Pneumonia Sherrie is a 89-year-old female with past medical history significant for stage 4 chronic kidney disease baseline creatinine 2-2.5, hypertension, admitted to the hospital with pneumonia and empyema. Had chest tube placed, currently on aztreonam and levofloxacin. Has baseline stage 4 chronic kidney disease, baseline creatinine 2-2.5, unclear etiology for chronic kidney disease, could be secondary to nephro toxicity from long-term NSAID use, hypertensive nephropathy or prior history of acute kidney injury with non recovery. On admission her creatinine was 2.4 which has been worsening over last few days and 3.6 this morning and over last 24 hours she has been oliguric. Electrolytes so far has been stable and volume status acceptable. No urinalysis available. No history of diabetes or coronary artery disease. Renal ultrasound low shows bilateral atrophic kidney with marked echogenicity. History of NSAID use for years but stopped using more than a year ago. No history of autoimmune disorder. No family history of chronic kidney disease. Nonsmoker. Recommendations --Discontinue IV fluid -- dose medications for GFR less than 10, avoid nephrotoxins medications -- protective left upper extremity -- check phosphate, PTH and iron study -- continue on low-potassium diet -- continue to monitor renal function closely, monitor urine output --there is no indication for emergency dialysis however in next 24-48 hours if renal function does not improve, patient developed electrolyte abnormality or continues to be oliguric/anuric, will have to start on dialysis emergently with tunnel dialysis catheter. --discussed in detail with the patient and her daughters and explained the current status of her kidney function. Explained that at age 89 dialysis may not improve her quality of life compared to conservative approach. Explained that tunnel dialysis catheter will increase risk of infection significantly considering recent recurrent pneumonia and empyema. Patient and her daughters would like to consider dialysis if kidney function continues to decline and there is any acute indication for dialysis. Thank you for allowing me to participate in your patient's care. It was a pleasure to see Sherrie This chart was completed utilizing [employer] and voice recognition software. Grammatical errors, random word insertions, pronoun errors and incomplete sentences are occasional consequences of this system. Any questions or concerns about the content, text or information contained within the body of this dictation should be addressed directly to the physician for clarification.
--- NOTE | 2016-06-27 18:18 | Progress Note ---
Subjective Date of Service: Jun 27, 2016. Subjective Pt evaluation today including: conversation w/ patient, conversation w/ family (daughter; ), physical exam, chart review, lab review, review of studies (renal u/s, CT chest), conversation w/ [facility] consultant (nephrology, CT surgery), review of inpatient medication list Pain: denies any during my visit PO Intake: poor overnight patient became oliguric she overall feels better than yesterday, fortunately appetite may be slightly better today still quite fatigued and dyspneic w/ activity daughter at bedside w/ multiple questions Problem List Medical Problems: (1) Constipation Status: Acute (2) Eczema Status: Acute (3) Hypoxia Status: Acute (4) Peripheral edema Status: Acute (5) Renal insufficiency Status: Acute (6) Right lower lobe pneumonia Status: Acute Review of Systems Constitutional: + fatigue, No chills, No fever Respiratory: + dyspnea on exertion Cardiac: No PND, No chest pain, No edema, No orthopnea Abdomen: No nausea, No pain, No vomiting Objective Vital Signs Date Time Temp Pulse Resp B/P Pulse Ox O2 Delivery O2 Flow Rate FiO2 06/27/16 16:20 36.7 66 16 109/70 98 Nasal Cannula 2.0 06/27/16 15:49 72 16 94 Nasal Cannula 2.0 06/27/16 15:15 Nasal Cannula 2.0 06/27/16 12:11 36.3 72 20 124/68 95 Nasal Cannula 2.0 06/27/16 11:56 64 16 95 Nasal Cannula 2.0 06/27/16 07:54 95 Nasal Cannula 2.0 06/27/16 07:46 36.7 64 20 122/70 95 Nasal Cannula 2.0 06/27/16 07:44 62 16 96 Nasal Cannula 2.0 06/27/16 07:15 Nasal Cannula 2.0 06/26/16 23:45 Nasal Cannula 2.0 06/26/16 22:46 36.5 63 16 112/75 97 Nasal Cannula 2.0 06/26/16 19:55 56 16 95 Nasal Cannula 2.0 Physical Exam General Appearance: no apparent distress, + cachetic, + thin ENT: pharynx normal (thrush already improved) Neck: no JVD Respiratory/Chest: no respiratory distress, no accessory muscle use, + rales ( right base), + pertinent finding (course BS b/l, worse on right; subcutaneous emphysema palpated over the anterior chest wall on right ) Cardiovascular: regular rate, rhythm, no gallop Abdomen: normal bowel sounds, non tender, soft, no organomegaly Extremities: no pedal edema Neurologic/Psychiatric: alert, oriented x 3 Laboratory Results Last 24 Hours Test 06/26/16 20:54 06/27/16 06:13 Bedside Glucose 87 mg/dl Sodium Level 140 mmol/L Potassium Level 3.6 mmol/L Chloride Level 105 mmol/L Carbon Dioxide Level 25 mmol/L Anion Gap 10.0 mmol/L Blood Urea Nitrogen 89 mg/dl Creatinine 3.60 mg/dl Est Creatinine Clear Calc Drug Dose 7.8 ml/min Estimated GFR () 12.4 Estimated GFR (Non- 10.7 BUN/Creatinine Ratio 24.7 Random Glucose 81 mg/dl Calcium Level 7.4 mg/dl Vitamin B12 Level 722 pg/mL Folate 6.88 ng/mL Thyroid Stimulating Hormone (TSH) 3.900 uIu/ml Cortisol AM Sample 22.73 mcg/dl Assessment and Plan 89yo female: 1. acute hypoxic resp failure - 2nd to multifocal community-acquired pneumonia and right-sided empyema. Stable from pulmonary standpoint on small amount of NC O2. 2. right-sided empyema - 2nd to strep indeterminus. Clinically/radiographically improved (CT today with smaller amount of fluid on right). Cont aztreonam & levaquin but can likely go to monotherapy soon. Day #5 of abx. Will need PROLONGED course of abx IV/PO. Defer chest tube management to CT surgery. 3. hypoglycemia - 2nd to infection/poor appetite - resolved with dextrose in her fluids. Cortisol level normal. 4. severe protein calorie malnutrition - cont boost breeze or ensure - her choice. 5. COPD - based on CT chest findings - continue nebs. 6. 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 Check renal u/s -- r/o hydronephrosis/obstruction. Send u/a, check for casts. Send urine Cr and urine Na. Nephrology consult requested. Suspect ATN due to sepsis or hypovolemia during her stay. Cannot r/o other nephrotoxic injury. Await recs from Dr. Gaviria. 7. anemia - suspect due to anemia of chronic kidney disease. Recheck CBC in am for stability. B12/folate normal. Ferritin in am. 8. hypotension - resolved. HOLDing all home BP meds. Suspect multifactorial causes including weight loss, dehydration, sepsis, etc. 9. sepsis 2nd to #1, #2 - improved. 10. DVT proph - heparin. 11. diarrhea - c diff neg x 2. Abx-associated. Cont probiotics. 12. thrush - nystatin QID. Improved. 13. anorexia - 2nd to #1, #2 - megace daily. daughter updated briefly updated PT, OT if able guarded prognosis in light of worsening renal status in the setting of her empyema, advanced age, etc Continued [facility] stay due to: inadequate po fluid intake, ambulation difficulties , multiple IV medications needed, other (acute renal failure ) Discharge planning: uncertain
[2016-06-27] MEDS: LEVOFLOXACIN / D5W 500 MG in PREMIXED IN D5W 100 ML IV SCH (19:09)
[2016-06-27 19:55] LABS: URINE BILIRUBIN NEG (NEG); URINE COLOR YELLOW; URINE NITRITE NEG (NEG); URINE SPECIFIC GRAVITY 1.021 (1.000-1.030); UROBILINOGEN NEG (NEG)
[2016-06-27 19:58] LABS: MANUAL MICROSCOPIC REQUIRED? NO; REVIEW REQ? NO; URINE APPEARANCE CLEAR (CLEAR)
[2016-06-27] MEDS: ONDANSETRON INJ 2 MG/ML 2 ML VIAL IV PRN (20:37)
[2016-06-27] MEDS: GUAIFENESIN 600 MG TABCR PO SCH (20:37)
[2016-06-28] VITALS (8 sets, daily range): BP systolic 91–113; BP diastolic 61–71; PULSE 54–85; TEMP 36.3–36.7; O2SAT 92–100
[2016-06-28] MEDS: AZTREONAM IV 1,000 MG in DEXTROSE 5% 100ML 100 ML IV SCH ×3 (03:42→20:32)
[2016-06-28 05:50] LABS: HEMATOCRIT 26.8 % (37-47); MEAN CELL VOLUME 93.1 fL (80-100); MEAN CORPUSCULAR HEMOGLOBIN 29.5 pg (25-34); MEAN CORPUSCULAR HGB CONC 31.7 g/dl (32-36); MEAN PLATELET VOLUME 9.5 fL (7.4-10.4); PLATELET COUNT 360 K/uL (130-400); RED BLOOD COUNT 2.88 M/uL (4.2-5.4); WHITE BLOOD COUNT 11.71 K/uL (4.8-10.8)
[2016-06-28] MEDS: ACETAMINOPHEN 500 MG TAB PO SCH (06:00)
[2016-06-28] MEDS: D5W AND NSS 1,000 ML IV SCH (06:04)
[2016-06-28 06:14] LABS: BUN/CREATININE RATIO 23.1 (10-20); CALCIUM 7.1 mg/dl (8.5-10.1); CREATININE 4.1 mg/dl (0.60-1.20); POTASSIUM 3.8 mmol/L (3.5-5.1)
[2016-06-28 06:20] LABS: FERRITIN 433.5 ng/ml (8.0-388.0)
[2016-06-28] MEDS: ALBUT/IPRATROP 3MG/0.5MG NEB 3 ML VIAL INH SCH ×4 (07:32→19:50)
--- NOTE | 2016-06-28 08:10 | Surgery Progress Note ---
Subjective Date of Service: Jun 28, 2016. Pt. currently not SOB. She notes poor apatite and generalized fatigue. Objective Vitals Date Time Temp Pulse Resp B/P Pulse Ox O2 Delivery O2 Flow Rate FiO2 06/28/16 07:32 74 16 96 Nasal Cannula 2.0 06/28/16 07:12 36.5 75 18 113/71 100 Nasal Cannula 4.0 06/27/16 23:43 36.3 73 16 94/57 99 Nasal Cannula 4.0 06/27/16 23:40 Nasal Cannula 4.0 06/27/16 21:35 36.5 71 14 94/59 93 Nasal Cannula 4.0 06/27/16 19:17 70 16 96 Nasal Cannula 2.0 06/27/16 16:20 36.7 66 16 109/70 98 Nasal Cannula 2.0 06/27/16 15:49 72 16 94 Nasal Cannula 2.0 06/27/16 15:15 Nasal Cannula 2.0 06/27/16 12:11 36.3 72 20 124/68 95 Nasal Cannula 2.0 06/27/16 11:56 64 16 95 Nasal Cannula 2.0 Physical Exam General: No distress CV: + RRR Pulmonary: + pertinent finding (decreased at bases) Neurologic: + alert & oriented x 3 Drains / Tubes pleurex (right sided; 75 cc drained this am ) Assessment & Plan 89 year old female with empyema -pleurex placed on 06/24/16 -MIST II protocol completed on 06/25/16 -repeat CT Scan noted on 06/26/16---small amount of residual fluid noted; parenchymal infiltrates noted -micro noted--Strep intermedius with no sensitivities: -lab called and asked to obtain sensitivity--it is noted that organism is not viable for sensitivity -repeat culture sent today -continue abx. as ordered -JESUS noted; nephrology following with consideration of dialysis if acute indication arises -family updated via phone
[2016-06-28] MEDS ORDERED: TRAMADOL HCL 50 MG TAB PO PRN (08:15)
[2016-06-28] MEDS: GUAIFENESIN 600 MG TABCR PO SCH ×2 (08:37→20:33)
[2016-06-28] MEDS: MEGESTROL ACETATE SUSP 400 MG/10 ML UDC PO SCH (08:37)
[2016-06-28] MEDS: CEROVITE ADV FORMULA TAB PO SCH (08:37)
[2016-06-28] MEDS: NYSTATIN SUSP 500,000 U/5 ML UDC PO SCH ×4 (08:37→20:35)
[2016-06-28] MEDS: SACCHAROMYCES BOUL (FLORASTOR) 250 MG CAP PO SCH (08:38)
[2016-06-28] MEDS: BOOST BREEZE NUTRITION DRINK 1 BOX PO SCH ×3 (08:46→17:15)
[2016-06-28] MEDS: HEPARIN SOD 5000 UNIT/0.5 ML CARP SQ SCH ×2 (08:56→20:45)
[2016-06-28] MEDS: LIDODERM (LIDOCAINE) PATCH 5% TD SCH (11:23)
[2016-06-28] MEDS: ACETAMINOPHEN SOLN 500 MG/15.62 ML UDP PO SCH ×2 (11:26→22:00)
[2016-06-28] MEDS ORDERED: CALCIUM CARBONATE 500 MG CHEWABLE PO PRN (12:00)
--- NOTE | 2016-06-28 12:25 | Nephrology Progress Note ---
Nephrology Progress Note Date of Service Jun 28, 2016. Chief Complaint Follow-up for acute kidney injury with history of advanced chronic kidney disease. Subjective Sherrie Was seen and examined in her room at room this morning with her daughter suspects Shira at bedside. she has been overall feeling a bit rise less, agitated and groggy. renal function worsened further to creatinine 4.1 and current estimated GFR 9. Electrolyte including potassium and bicarb normal. Continues to be oliguric urine output 210 mL over last 24 hours. Blood pressure has been relatively soft. Hemoglobin low, PTH elevated and phosphate high as well. Review of Systems A complete review of systems was performed. Pertinent positives are noted above. All other systems are negative. Vital Signs Last 8 Hrs Date Time Temp Pulse Resp B/P Pulse Ox O2 Delivery O2 Flow Rate FiO2 06/28/16 07:32 74 16 96 Nasal Cannula 2.0 06/28/16 07:12 36.5 75 18 113/71 100 Nasal Cannula 4.0 I & O 24-Hour Column 06/28/16 08:00 Intake Total 1904 ml Output Total 285 ml Balance 1619 ml Last Recorded Weight Weight (Kilograms): 45.500 Physical Exam GENERAL: Frail, elderly lady, AAA x 3, ill-appearing, not in any distress. NECK: Supple, no JVD. RESPIRATORY: Normal breathing efforts, no accessory muscle use, crackles bilaterally at bases. CARDIOVASCULAR: S1, S2 normal, rate rhythm regular. EXTREMITY: No lower extremity edema NEURO: speech fluent. PSYCHIATRY: Normal mood and judgment Family History FH: HTN (hypertension) FH: cancer FH: kidney disease Heart disease Social History Smoking Status: Former smoker Drug Use: none Marital Status: Occupation: retired Laboratory Results Past 24 Hours 06/28/16 05:41 06/28/16 05:41 Test 06/27/16 19:17 06/28/16 05:41 Urine Color YELLOW Urine Appearance CLEAR (CLEAR) Urine pH 5.0 (4.5-7.5) Urine Specific [place] 1.021 (1.000-1.030) Urine Protein NEG (NEG) Urine Glucose (UA) NEG (NEG) Urine Ketones NEG (NEG) Urine Occult Blood NEG (NEG) Urine Nitrite NEG (NEG) Urine Bilirubin NEG (NEG) Urine Urobilinogen NEG (NEG) Urine Leukocyte Esterase NEG (NEG) Urine Random Creatinine 85.0 mg/dl Urine Random Sodium 14 mEq/L Red Blood Count 2.88 M/uL (4.2-5.4) Mean Corpuscular Volume 93.1 fL (80-100) Mean Corpuscular Hemoglobin 29.5 pg (25-34) Mean Corpuscular Hemoglobin Concent 31.7 g/dl (32-36) RDW Standard Deviation 52.3 fL (36.4-46.3) RDW Coefficient of Variation 15.4 % (11.5-14.5) Mean Platelet Volume 9.5 fL (7.4-10.4) Anion Gap 11.0 mmol/L (3-11) Est Creatinine Clear Calc Drug Dose 6.8 ml/min Estimated GFR () 10.6 Estimated GFR (Non- 9.1 BUN/Creatinine Ratio 23.1 (10-20) Calcium Level 7.1 mg/dl (8.5-10.1) Phosphorus Level 7.0 mg/dl (2.5-4.9) Iron Level 63 mcg/dl (35-150) Total Iron Binding Capacity 133 mcg/dl (250-450) Transferrin 109 mg/dl (200-360) Transferrin % Saturation 41 % (15-50) Ferritin 433.5 ng/ml (8.0-388.0) Parathyroid Hormone (Intact) 521.2 pg/mL (11.1-79.5) Allergies Coded Allergies: Penicillins (Verified Allergy, Intermediate, hives, 06/23/16) Medications Current Inpatient Medications Medications (Trade) Dose Ordered Sig/Lavonne Route Start Time Stop Time Status Last Admin Dose Admin Acetaminophen (Tylenol Tab) 650 mg Q4H PRN PO 06/23/16 18:30 07/23/16 18:29 Future Hold Ondansetron HCl (Zofran Inj) 4 mg Q6H PRN IV 06/23/16 18:30 07/23/16 18:29 06/27/16 20:37 4 MG Heparin Sodium (Porcine) (Heparin Sq 5000 Unit/0.5ml) 5,000 unit Q12 SQ 06/23/16 21:00 07/23/16 18:29 06/28/16 08:56 5,000 UNIT Atenolol 100 mg 100 mg DAILY PO 06/24/16 09:00 07/24/16 08:59 Future Hold 06/25/16 10:06 100 MG Levofloxacin 500 mg/Prmx 100 ml @ 100 mls/hr Q48H IV 06/25/16 18:30 06/29/16 23:00 06/27/16 19:09 100 MLS/HR Aztreonam/Dextrose (Azactam IV/D5 100ml) 110 ml @ 100 mls/hr Q8H IV 06/24/16 04:00 07/01/16 03:59 06/28/16 03:42 100 MLS/HR Albuterol/ Ipratropium (Duoneb) 3 ml QIDR INH 06/23/16 20:00 07/23/16 19:59 06/28/16 07:32 3 ML Levofloxacin (Consult) 1 ea UD PRN N/A 06/23/16 21:30 07/23/16 21:29 Diltiazem HCl (TIAzac CAP) 180 mg DAILY PO 06/24/16 10:00 07/24/16 09:59 Future Hold 06/25/16 10:06 180 MG Saccharomyces Boulardii (Florastor Cap) 250 mg DAILY PO 06/25/16 09:00 07/25/16 08:59 06/28/16 08:38 250 MG Enteral Nutritional Formula 1 box 1 box AC PO 06/24/16 17:15 07/24/16 17:14 06/28/16 08:46 1 BOX Acetaminophen/ Empty Bag (Ofirmev Iv/ Empty Iv Bag 100ml) 100 ml @ 400 mls/hr Q8H IV 06/25/16 02:00 07/25/16 01:59 Future Hold 06/26/16 09:54 400 MLS/HR Acetaminophen (Tylenol Tab) 1,000 mg Q8 PO 06/26/16 19:00 07/26/16 18:59 06/27/16 13:22 1,000 MG Megestrol Acetate (Megace Susp) 400 mg QAM PO 06/26/16 11:30 07/26/16 11:29 06/28/16 08:37 400 MG Multivitamins/ Minerals (Multivitamin W/ Minerals Tab) 1 tab QAM PO 06/26/16 11:30 07/26/16 11:29 06/28/16 08:37 1 TAB Nystatin 5 ml 5 ml QID PO 06/26/16 13:00 07/06/16 12:59 06/28/16 08:37 5 ML Dextrose/Sodium Chloride (D5W And Nss) 1,000 ml @ 50 mls/hr Q20H IV 06/27/16 10:00 07/27/16 09:59 06/28/16 06:04 50 MLS/HR Guaifenesin (Mucinex Contr Rel Tab) 600 mg Q12 PO 06/27/16 21:00 07/27/16 20:59 06/28/16 08:37 600 MG Tramadol HCl (Ultram Tab) 50 mg Q4H PRN PO 06/28/16 08:15 07/28/16 08:14 Impression (1) Acute kidney injury (2) Stage 4 chronic kidney disease (3) Anemia (4) Empyema lung (5) Pneumonia Sherrie is a 89-year-old female with past medical history significant for stage 4 chronic kidney disease baseline creatinine 2-2.5, hypertension, admitted to the hospital with pneumonia and empyema. Had chest tube placed, currently on aztreonam and levofloxacin. Has baseline stage 4 chronic kidney disease, baseline creatinine 2-2.5, unclear etiology for chronic kidney disease, could be secondary to nephro toxicity from long-term NSAID use, hypertensive nephropathy or prior history of acute kidney injury with non recovery. On admission her creatinine was 2.4 which has been worsening over last few days and 3.6 this morning and over last 24 hours she has been oliguric. Electrolytes so far has been stable and volume status acceptable. No urinalysis available. No history of diabetes or coronary artery disease. Renal ultrasound low shows bilateral atrophic kidney with marked echogenicity. History of NSAID use for years but stopped using more than a year ago. No history of autoimmune disorder. No family history of chronic kidney disease. Nonsmoker. Recommendations --Renal function continues to decline creatinine 5.1 and she seems to be having some uremic symptoms. -- protective left upper extremity -- Okay to use Lasix as needed -- start on Tums 1 tablet with each meal, calcitriol 0.25 microgram p.o. 3 times weekly and he put Mar 19990 units subcu x1 dose today -- continue on low-potassium diet -- continue to monitor renal function closely, monitor urine output -- seems like patient is reaching end-stage renal disease and exhibiting some uremic symptoms and decreased urine output --discussed again in detail with the patient and her daughters and explained the current status of her kidney function and I answered all of their questions. Explained that at age 89 dialysis may not improve her quality of life compared to conservative approach. Explained that tunnel dialysis catheter will increase risk of infection significantly considering recent recurrent pneumonia and empyema. --Explained that if patient and family decided to consider dialysis, will have to start her on dialysis in next 24 hours and chances for recovery of her renal function seems to be very low as everything points to end-stage renal disease --patient would like to wait and will continue discussion with her family regarding decision about dialysis -- we also discussed briefly about home D him dialysis therapy and explained that home hemodialysis would not be an option however we can discuss about peritoneal dialysis if there is someone who can support patient 24 hours at home and do the dialysis for her.
[2016-06-28] MEDS ORDERED: EPOETIN ALFA 20,000 UNITS/ML VIAL SQ ONE (13:00)
--- NOTE | 2016-06-28 13:47 | DIAGNOSTIC IMAGING REPORT ---
CHEST ONE VIEW PORTABLE HISTORY: Eval for worsening pneumothorax. Short of breath. COMPARISON: Chest 06/26/2016. FINDINGS: A right basilar chest tube is again noted. Small right basilar hydropneumothorax has decreased in size. Right greater than left interstitial and vascular thickening consistent with asymmetric congestive change. This is similar to the prior study. There are linear densities within the right lung base. The heart is normal in size. Right chest wall subcutaneous emphysema has slightly improved. IMPRESSION: 1. Small right basilar hydropneumothorax has slightly decreased in size. 2. Mild asymmetric pulmonary vascular congestion without overt edema. 3. Right basilar densities persist. This may represent atelectasis or pneumonia. Electronically signed by: Anil Frederick M.D. 06/28/2016 1:45 PM Dictated Date/Time: 06/28/2016 1:43 PM
[2016-06-28 17:22] LABS: VEN BLD GAS O2 SATURATION 82.4 %; VEN BLOOD GAS BASE EXCESS -7.1 mmol/L
[2016-06-28] MEDS ORDERED: SODIUM CHLORIDE 0.9% 250ML 250 ML IV SCH (17:45)
[2016-06-28 17:53] LABS: BLOOD UREA NITROGEN 95 mg/dl (7-18); BUN/CREATININE RATIO 21.6 (10-20); CALCIUM 7.7 mg/dl (8.5-10.1); CARBON DIOXIDE 24 mmol/L (21-32); CHLORIDE 107 mmol/L (98-107); GLUCOSE 97 mg/dl (70-99); POTASSIUM 3.7 mmol/L (3.5-5.1); SODIUM 140 mmol/L (136-145)
--- NOTE | 2016-06-28 21:12 | Progress Note ---
Subjective Date of Service: Jun 28, 2016. Subjective Pt evaluation today including: conversation w/ patient, conversation w/ family (3 daughters at bedside - multiple discussions today), physical exam, chart review, lab review, review of studies (cxr, ekg), conversation w/ internet marketing consultant ( nephrology, CT surgery ), review of inpatient medication list Pain: episode of chest pain late this afternoon that self-resolved PO Intake: poor Multiple visits today to see Ms. Griffiths. First visit was this AM on morning rounds. Patient was sitting in chair at that time. Had no specific complaints except for pain over the right flank area. She was mildly confused and drowsy during that first visit. Family reported ongoing poor appetite. Staff reported poor urine output. Patient apparently spent much of the day in the chair sleeping. Late this afternoon apparently the patient c/o chest pain - substernal area - to staff. She was helped back into the bed. Initial vitals showed low BP in the 70s systolic. Upon my arrival the patient was in the bed. She was again very drowsy. She stated her pain was already better. 250cc NS bolus given for low BP. EKG obtained - no significant change relative to prior EKG. Exam during that 2nd visit was unchanged from the first visit. I then visited the patient for a 3rd time later in the evening to discuss her lab results with the patient and her daughters. I reviewed her worsening Cr, worsening pH, and rising pCO2. We discussed all options for care. We reviewed a hard copy of her advanced directive which stated that if she had a terminal illness/condition she would not want aggressive measures. When the patient was asked directly about her wishes w/ respect to code status, BIPAP, dialysis, etc she was quite sleepy but would occasionally awaken and state "I feel better. I'm fine." She could not answer my questions about her wishes for her care. Her advanced directive names her as her POA but he is w/o capacity due to his dementia. Thus, his daughter now has POA. Problem List Medical Problems: (1) Constipation Status: Acute (2) Eczema Status: Acute (3) Hypoxia Status: Acute (4) Peripheral edema Status: Acute (5) Renal insufficiency Status: Acute (6) Right lower lobe pneumonia Status: Acute Review of Systems Constitutional: + fatigue, + weakness Respiratory: + cough, + shortness of breath, + sputum Cardiac: + chest pain, + see HPI Abdomen: + diarrhea, No nausea, No pain, No vomiting Objective Vital Signs Date Time Temp Pulse Resp B/P Pulse Ox O2 Delivery O2 Flow Rate FiO2 06/28/16 20:22 77 93 50 06/28/16 19:56 78 16 92 Nasal Cannula 2.0 06/28/16 16:13 36.3 85 16 91/61 96 Nasal Cannula 2.0 06/28/16 15:38 62 16 93 Nasal Cannula 2.0 06/28/16 11:28 54 16 92 Nasal Cannula 2.0 06/28/16 08:15 Nasal Cannula 4.0 06/28/16 07:32 74 16 96 Nasal Cannula 2.0 06/28/16 07:12 36.5 75 18 113/71 100 Nasal Cannula 4.0 06/27/16 23:43 36.3 73 16 94/57 99 Nasal Cannula 4.0 06/27/16 23:40 Nasal Cannula 4.0 06/27/16 21:35 36.5 71 14 94/59 93 Nasal Cannula 4.0 Physical Exam General Appearance: no apparent distress, + cachetic, + thin Eyes: PERRL ENT: pharynx normal Neck: no JVD Respiratory/Chest: no respiratory distress, no accessory muscle use, + crackles (right base - extensive), + rales (left base as well but mild), + wheezing ( occasional), + pertinent finding (course BS b/l; tender to palpation over right flank/lower right chest; +crepitus to palpation over right upper chest wall) Cardiovascular: regular rate, rhythm, no gallop, no murmur Abdomen: normal bowel sounds, non tender, soft, no organomegaly Extremities: no pedal edema, + pertinent finding (cool to touch) Neurologic/Psychiatric: + pertinent finding (lethargic) Skin: + pallor Laboratory Results Last 24 Hours Test 06/28/16 05:41 06/28/16 17:02 06/28/16 17:10 White Blood Count 11.71 K/uL Red Blood Count 2.88 M/uL Hemoglobin 8.5 g/dL Hematocrit 26.8 % Mean Corpuscular Volume 93.1 fL Mean Corpuscular Hemoglobin 29.5 pg Mean Corpuscular Hemoglobin Concent 31.7 g/dl RDW Standard Deviation 52.3 fL RDW Coefficient of Variation 15.4 % Platelet Count 360 K/uL Mean Platelet Volume 9.5 fL Sodium Level 140 mmol/L 140 mmol/L Potassium Level 3.8 mmol/L 3.7 mmol/L Chloride Level 106 mmol/L 107 mmol/L Carbon Dioxide Level 23 mmol/L 24 mmol/L Anion Gap 11.0 mmol/L 9.0 mmol/L Blood Urea Nitrogen 95 mg/dl 95 mg/dl Creatinine 4.10 mg/dl 4.40 mg/dl Est Creatinine Clear Calc Drug Dose 6.8 ml/min 6.3 ml/min Estimated GFR () 10.6 9.7 Estimated GFR (Non- 9.1 8.4 BUN/Creatinine Ratio 23.1 21.6 Random Glucose 87 mg/dl 97 mg/dl Calcium Level 7.1 mg/dl 7.7 mg/dl Phosphorus Level 7.0 mg/dl Iron Level 63 mcg/dl Total Iron Binding Capacity 133 mcg/dl Transferrin 109 mg/dl Transferrin % Saturation 41 % Ferritin 433.5 ng/ml Parathyroid Hormone (Intact) 521.2 pg/mL Bedside Glucose 92 mg/dl Venous Blood pH 7.21 Venous Blood Partial Pressure CO2 53 mmHg Venous Blood Partial Pressure O2 51 mmHg Venous Blood HCO3 21 mmol/L Venous Blood Oxygen Saturation 82.4 % Venous Blood Base Excess -7.1 mmol/L Lactic Acid Level 0.9 mmol/L Ammonia 14.0 umol/L Troponin I < 0.015 ng/ml Assessment and Plan 89yo female: 1. acute hypoxic and now hypercarbic respiratory failure - 2nd to multifocal community-acquired pneumonia, right-sided empyema, and now metabolic acidosis from her acute renal failure. I believe that some of her altered mental status is due in part to hypercarbia. I discussed this at length with her daughters that the hypercarbia may rise tonight and that the next step would be BIPAP, if she could tolerate such. However, I would only recommend BIPAP if they wish to continue with aggressive measures. BIPAP ordered until family makes a decision re: her care. Repeat VBG later this evening. 2. right-sided empyema and right-sided pneumonia - 2nd to strep indeterminus. s/p chest tube placement (pleurX). Day #6 aztreonam & levaquin. Will need PROLONGED course of abx IV/PO. Defer chest tube management to CT surgery. 3. mixed metabolic & respiratory acidosis - portends very poor prognosis. Metabolic acidosis due to uremia; lactate level is normal. She will likely need ventilatory support soon. BIPAP for now. I explained that intubation with mech ventilation would be very aggressive in light of her multiple comorbidities and advanced age. Family discussing her code status. 4. 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 Fluids stopped due to concern of volume overload. Renal u/s without hydronephrosis/obstruction. Suspect ATN due to sepsis or hypovolemia during her stay. Cannot r/o other nephrotoxic injury. Appreciate Dr. Gaviria's consultation. She would likely need HD catheter placed urgently in the AM followed by hemodialysis. I share Dr. Gaviria's concern about her ability to tolerate HD in light of low BP and frail status. I also agree it would likely not improve her quality of life. I discussed HD with her 3 daughters at bedside tonight. They are going to discuss. 5. anemia - suspect due to anemia of chronic kidney disease as well as blood draws, etc. H/H worse today. In light of worsening status, if Hb <8, would need transfusion but would only tolerate such if hemodialysis is initiated. 6. hypotension - ongoing/intermittent. HOLDing all home BP meds. Suspect multifactorial. 7. chest pain - cxr today unchanged from prior. EKG (my reading) with minimal ST changes in the inferior leads but largely unchanged from prior EKG. Troponin negative. Repeat troponin later tonight. May be due to pulmonary issues. 8. sepsis 2nd to #1, #2 9. metabolic encephalopathy - due to worsening hypercarbia, uremia, etc. Cannot rule out toxic effect from tramadol, but her lethargy started BEFORE the tramadol. [id number] will d/c the tramadol. Ammonia level was normal. Fingerstick blood sugar was normal. 10. DVT proph - heparin. 11. diarrhea - c diff neg x 2. Abx-associated. Cont probiotics. 12. thrush - nystatin QID. Improved. 13. anorexia - 2nd to #1, #2 - ongoing. About 120 minutes was spent today spread out over 3 separate visits. The bulk of this time was spent discussing her rapidly declining status and her plan of care. Options include - 1. transitioning to comfort/palliative care (I recommended this option) 2. aggressive care - Tx to telemetry, HD catheter placement followed by dialysis (if she can tolerate), BIPAP, abx; continuing full code status 3. intermediate care - making her DNR, trial of BIPAP, but not proceeding with more aggressive measures (HD catheter placement, etc) I encouraged the family to think about her mother's wishes based upon what her advanced directive states. Family to discuss the above options and let the on-call health tech know their decisions tonight. On-call resident and attending updated with the above. Continued [facility] stay due to: abnormal vital signs, inadequate po fluid intake, ambulation difficulties, multiple IV medications needed, other (acute renal failure ) Discharge planning: uncertain
[2016-06-28 23:01] LABS: VEN BLD GAS O2 SATURATION 67.7 %; VEN BLOOD GAS BASE EXCESS -5.2 mmol/L
[2016-06-29] VITALS (21 sets, daily range): BP systolic 83–133; BP diastolic 47–67; PULSE 68–87; TEMP 36.3–36.7; O2SAT 92–100
--- NOTE | 2016-06-29 00:04 | Progress Note ---
Progress Note Date of Service Jun 29, 2016. Progress Note I was phoned by nursing at approximately 2355 on 06/28/2016. Per family discussion, they've requested that the patient's CODE STATUS be changed to a Level III. Furthermore they expressed that they want to proceed with having catheter placed for dialysis. As per plan from primary team, if patient was any status other than DNR, she is to be transferred to telemetry for further monitoring. I've gone ahead and placed orders for transfer. Per nurse, the patient is currently on BiPAP, and comfortable overall. I will continue to follow through the overnight period.
[2016-06-29] MEDS ORDERED: SODIUM CHLORIDE 0.9% 500ML 500 ML IV ONE (01:45)
[2016-06-29] MEDS: AZTREONAM IV 1,000 MG in DEXTROSE 5% 100ML 100 ML IV SCH ×2 (04:24→13:13)
[2016-06-29] MEDS: ACETAMINOPHEN SOLN 500 MG/15.62 ML UDP PO SCH ×3 (05:53→20:55)
[2016-06-29 06:52] LABS: HEMATOCRIT 25.7 % (37-47); MEAN CELL VOLUME 92.4 fL (80-100); MEAN CORPUSCULAR HEMOGLOBIN 29.5 pg (25-34); MEAN CORPUSCULAR HGB CONC 31.9 g/dl (32-36); PLATELET COUNT 339 K/uL (130-400); RED BLOOD COUNT 2.78 M/uL (4.2-5.4); WHITE BLOOD COUNT 10.98 K/uL (4.8-10.8)
[2016-06-29] MEDS: BOOST BREEZE NUTRITION DRINK 1 BOX PO SCH ×3 (07:00→15:51)
[2016-06-29] MEDS: ALBUT/IPRATROP 3MG/0.5MG NEB 3 ML VIAL INH SCH ×5 (07:04→23:16)
[2016-06-29 07:31] LABS: ARTERIAL BLD GAS O2 SATURATION 96.7 % (90-95); ARTERIAL BLOOD GAS BASE EXCESS -5.2 mEq/L (-9-1.8); ARTERIAL BLOOD GAS HCO3 22 mmol/L (19-24); ARTERIAL BLOOD GAS PO2 160 mm/Hg (80-95); ARTERIAL BLOOD GAS pH 7.25 (7.35-7.45)
[2016-06-29 07:32] LABS: ALLEN TEST POSITIVE (POS); O2 ADMINISTRATION 50%
[2016-06-29 07:43] LABS: BUN/CREATININE RATIO 21.1 (10-20); CALCIUM 7.8 mg/dl (8.5-10.1); CREATININE 4.7 mg/dl (0.60-1.20); POTASSIUM 3.9 mmol/L (3.5-5.1)
[2016-06-29] MEDS: MEGESTROL ACETATE SUSP 400 MG/10 ML UDC PO SCH (09:00)
[2016-06-29] MEDS: NYSTATIN SUSP 500,000 U/5 ML UDC PO SCH ×4 (09:00→20:26)
[2016-06-29] MEDS: CEROVITE ADV FORMULA TAB PO SCH (09:00)
[2016-06-29] MEDS: HEPARIN SOD 5000 UNIT/0.5 ML CARP SQ SCH ×2 (09:00→20:30)
[2016-06-29] MEDS: SACCHAROMYCES BOUL (FLORASTOR) 250 MG CAP PO SCH (09:00)
[2016-06-29] MEDS: GUAIFENESIN 600 MG TABCR PO SCH ×2 (09:00→20:28)
[2016-06-29] MEDS ORDERED: HEPARIN SOD (PORCINE) 5000 UNIT/ML 1 ML VIAL ONE (10:33)
--- NOTE | 2016-06-29 10:38 | Surgery Consultation ---
Consultation Date of Service Jun 29, 2016. Chief Complaint ESRD, need permcath for HD History of Present Illness The patient is a 89 year old female admitted with pneumonia and empyema, as well as acute on chronic renal failure, seen in consultation today for permcath insertion for HD. Pt on Bipap and offers little hx, multiple family members present. Admit SOB, poor appetite, FERGUSON, frailty. Denies any other complaints presently. Vitals Vital Signs Past 12 Hours Date Time Temp Pulse Resp B/P Pulse Ox O2 Delivery O2 Flow Rate FiO2 06/29/16 07:23 36.5 72 20 96/65 100 BiPAP 06/29/16 07:08 93 50 06/29/16 07:04 70 16 93 BiPAP/CPAP 06/29/16 04:00 BiPAP 50 06/29/16 03:41 75 21 102/57 100 BiPAP 50 06/29/16 02:00 80 97 50 06/29/16 01:40 36.7 80 20 85/47 98 BiPAP 50 06/29/16 00:15 Room Air BiPAP 06/28/16 22:57 36.7 82 18 95/61 93 Nasal Cannula 2.0 Allergies Coded Allergies: Penicillins (Verified Allergy, Intermediate, hives, 06/23/16) Home Medications Scheduled Albuterol Hfa (Ventolin Hfa), 2 PUFFS INH QID Albuterol Sulf (Proventil 0.083% 2.5MG/3ML), 2.5 MG INH QID Atenolol (Tenormin), 100 MG PO DAILY Clindamycin Palmitate (Clindamycin Palmitate HCl), 20 ML PO TID Diltiazem Hcl Coated Beads (Diltiazem Cd), 180 MG PO DAILY Fluocinonide (Lidex 0.05% Oint), 1 GM TOP BID Furosemide (Lasix), 20 MG PO DAILY Prednisolone Sod Phos (Prednisolone Sodium Phosp), 40 ML PO UD Scheduled PRN Acetaminophen (Tylenol), 1,000 MG PO Q6H PRN for Pain Problem List Medical Problems: (1) Acute kidney injury (2) Anemia (3) Arthritis (4) Benign hypertension (5) Bronchitis (6) Empyema lung (7) ovarian cyst rupture (8) Pleural effusion (9) Pneumonia (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 TKA 1999,R MINA) Hx Urinary Tract Surgery: No Past Medical/Surgical History: Diabetes, Hypertension, Kidney Disease Family History FH: HTN (hypertension) FH: cancer FH: kidney disease Heart disease Social History Smoking Status: Former Smoker Hx Tobacco Use In Past Year?: No (QUIT 25 YEARS AGO) Hx Alcohol Use - Type & Amnt: Yes (OCCASIONAL WINE 1/2 GLASS/DAY) Hx Substance Use -Type & Amnt: No Review of Systems Constitutional: No chills, No fever, No malaise Skin: No change in color Eyes: No visual changes ENMT: No sore throat Respiratory: + FERGUSON, + cough, + orthopnea, + short of breath, No hemoptysis Cardiovascular: No chest pain, No chest pressure, No edema, No intermittent claudication, No syncope Gastrointestinal: No abdominal pain, No nausea, No vomiting Genitourinary - Female: No dysuria, No hematuria Neurologic: + weakness, No dizziness, No headache, No numbness, No tingling Physical Exam Constitutional: General Apperance: cachectic, too thin Level of Distress: mild distress, acutely ill, chronically ill Psychiatric: Mental Status: normal mood, lethargic Orientation: oriented except where noted, to time, to place, to person Memory: recent memory normal, remote memory normal Head: normocephalic, atraumatic Eyes: EOM: EOMI ENMT: normal ENT inspection, hearing grossly normal Neck: supple, trachea midline Lungs: Respiratory effort: dyspneic, tachypneic Auscultation: no wheezing, wet rales/crackles, rhonchi Cardiovascular: Apical Impulse: not displaced Heart Auscultation: RRR, no rubs, no gallops Peripheral Pulses: Pulses: full and equal, in all extremities except if noted Bruits: none appreciated Carotid Pulse: normal on the left, normal on the right Brachial Pulses: normal on the left, normal on the right Radial Pulse: normal on the left, normal on the right Femoral Pulse: normal on the left, normal on the right Posterior Tibialis Pulse: decreased on the left, decreased on the right Dorsalis Pedis Pulse: decreased on the left, decreased on the right Abdomen: Bowel Sounds: normal Inspection & Palpation: soft, non-distended, no tenderness, guarding & rebound Musculoskeletal: normal strength (5/5 throughout), normal tone Extremities: Upper Right: no cyanosis, no edema, no varicosities Upper Left: no cyanosis, no edema, no varicosities Lower Right: no cyanosis, no varicosities, no palpable cord, edema Lower Left: no cyanosis, no varicosities, no palpable cord, edema Neurologic: Cranial Nerves: grossly intact Sensation: grossly intact Assessment and Plan ASSESSMENT and PLAN: ESRD Pt initially consented for permcath insertion. Discussed with Dr Thurston. Due to significant illness currently and inability to lie flat for procedure or be off biPAP, recommend temporary femoral catheter insertion in room. Discussed with family and pt.
--- NOTE | 2016-06-29 11:13 | [facility] Post Operative Brief Note ---
Immediate Operative Summary Operative Date Jun 29, 2016. Pre-Operative Diagnosis Acute renal failure Post-Operative Diagnosis Same Procedure(s) Performed Insertion of right femoral vein temporary dialysis catheter Surgeon [employer] Surgeon(s) Jami Bustamante MD HO4 Estimated Blood Loss 0 Findings good aspiration and flushing Specimens none Anesthesia Local Complication(s) None Disposition
--- NOTE | 2016-06-29 11:44 | Progress Note ---
Subjective Date of Service: Jun 29, 2016. Subjective Pt evaluation today including: conversation w/ patient, conversation w/ family , physical exam, chart review, lab review, review of studies, review of inpatient medication list Patient was transferred to waste elimination last night, she need to BiPAP 100% FiO2, she has been awake and alert and orientated, no special complaint, vascular surgeon is talking to patient and family and planning to do dialysis catheter Problem List Medical Problems: (1) Constipation Status: Acute (2) Eczema Status: Acute (3) Hypoxia Status: Acute (4) Peripheral edema Status: Acute (5) Renal insufficiency Status: Acute (6) Right lower lobe pneumonia Status: Acute Review of Systems Constitutional: + fatigue, + weakness, No chills, No fever, No problem reported , No sweats, No weight loss Eyes: No diplopia, No discharge, No eye pain, No redness, No worsening of vision ENT: No dental problems, No hearing loss, No nasal symptoms, No sore throat, No tinnitus, No trouble swallowing, No unusual epistaxis Respiratory: + shortness of breath, + wheezing, No cough, No dyspnea at rest, No dyspnea on exertion, No hemoptysis, No sputum Cardiac: No PND, No chest pain, No claudication, No edema, No orthopnea, No palpitations Abdomen: No constipation, No diarrhea, No nausea, No pain, No vomiting Musculoskeletal: No calf pain, No joint pain, No muscle pain, No swelling Female : No abnormal vaginal bleeding, No dysuria, No hematuria, No incontinence, No urinary frequency, No vaginal discharge Neurologic: No balance problems, No memory loss, No numbness/tingling, No paralysis, No vertigo, No weakness Psychiatric: No anhedonism, No anxiety, No depression symptoms, No insomnia, No substance abuse Heme: No abnormal bleeding/bruising, No clotting problems, No night sweats, No swollen lymph nodes Endo: No excessive thirst, No excessive urination, No fatigue Skin: No bleeding, No color change, No itch, No new/changing skin lesions, No rash Objective Vital Signs Date Time Temp Pulse Resp B/P Pulse Ox O2 Delivery O2 Flow Rate FiO2 06/29/16 07:23 36.5 72 20 96/65 100 BiPAP 06/29/16 07:08 93 50 06/29/16 07:04 70 16 93 BiPAP/CPAP 06/29/16 04:00 BiPAP 50 06/29/16 03:41 75 21 102/57 100 BiPAP 50 06/29/16 02:00 80 97 50 06/29/16 01:40 36.7 80 20 85/47 98 BiPAP 50 06/29/16 00:15 Room Air BiPAP 06/28/16 22:57 36.7 82 18 95/61 93 Nasal Cannula 2.0 06/28/16 20:22 77 93 50 06/28/16 19:56 78 16 92 Nasal Cannula 2.0 06/28/16 16:13 36.3 85 16 91/61 96 Nasal Cannula 2.0 06/28/16 15:45 Nasal Cannula 2.0 06/28/16 15:38 62 16 93 Nasal Cannula 2.0 06/28/16 11:28 54 16 92 Nasal Cannula 2.0 Physical Exam General Appearance: WD/WN, no apparent distress, + cachetic, + thin Eyes: normal inspection, PERRL, EOMI, sclerae normal ENT: normal ENT inspection, hearing grossly normal, pharynx normal Neck: supple, no adenopathy, thyroid normal, no JVD, no carotid bruits, trachea midline Respiratory/Chest: chest non-tender, no accessory muscle use, + decreased breath sounds Cardiovascular: regular rate, rhythm, no edema, no gallop, no JVD, no murmur, + pertinent finding (maddie wrsit pulse is decreased and weak, but symetric) Abdomen: normal bowel sounds, non tender, soft, no organomegaly, no pulsatile mass Extremities: normal range of motion, non-tender, normal inspection, no pedal edema, no calf tenderness, normal capillary refill, pelvis stable Neurologic/Psychiatric: airfreight operations agent II-XII nml as tested, no motor/sensory deficits, alert, normal mood/affect, oriented x 3 Skin: normal color, warm/dry, no rash Lymphatic: no adenopathy Laboratory Results Last 24 Hours Test 06/28/16 17:02 06/28/16 17:10 06/28/16 22:52 06/29/16 06:10 Bedside Glucose 92 mg/dl Venous Blood pH 7.21 7.23 Venous Blood Partial Pressure CO2 53 mmHg 55 mmHg Venous Blood Partial Pressure O2 51 mmHg 36 mmHg Venous Blood HCO3 21 mmol/L 22 mmol/L Venous Blood Oxygen Saturation 82.4 % 67.7 % Venous Blood Base Excess -7.1 mmol/L -5.2 mmol/L Sodium Level 140 mmol/L 141 mmol/L Potassium Level 3.7 mmol/L 3.9 mmol/L Chloride Level 107 mmol/L 105 mmol/L Carbon Dioxide Level 24 mmol/L 25 mmol/L Anion Gap 9.0 mmol/L 11.0 mmol/L Blood Urea Nitrogen 95 mg/dl 101 mg/dl Creatinine 4.40 mg/dl 4.70 mg/dl Est Creatinine Clear Calc Drug Dose 6.3 ml/min 5.9 ml/min Estimated GFR () 9.7 9.0 Estimated GFR (Non- 8.4 7.7 BUN/Creatinine Ratio 21.6 21.1 Random Glucose 97 mg/dl 86 mg/dl Lactic Acid Level 0.9 mmol/L Calcium Level 7.7 mg/dl 7.8 mg/dl Ammonia 14.0 umol/L Troponin I < 0.015 ng/ml < 0.015 ng/ml White Blood Count 10.98 K/uL Red Blood Count 2.78 M/uL Hemoglobin 8.2 g/dL Hematocrit 25.7 % Mean Corpuscular Volume 92.4 fL Mean Corpuscular Hemoglobin 29.5 pg Mean Corpuscular Hemoglobin Concent 31.9 g/dl RDW Standard Deviation 51.7 fL RDW Coefficient of Variation 15.5 % Platelet Count 339 K/uL Mean Platelet Volume 10.0 fL Test 06/29/16 07:18 06/29/16 10:37 Arterial Blood pH 7.25 Arterial Blood Partial Pressure CO2 50 mmHg Arterial Blood Partial Pressure O2 160 mm/Hg Arterial Blood HCO3 22 mmol/L Arterial Blood Oxygen Saturation 96.7 % Arterial Blood Base Excess -5.2 mEq/L Arterial Blood Gas Delivery 50% Mario Test POSITIVE Assessment and Plan 89yo female admitted on 06/23/2016 because of acute hypoxic and now hypercarbic respiratory failure, now is on BiPAP, and has worsening renal function acute hypoxic and now hypercarbic respiratory failure, continue remains critical and on BiPAP 2nd to multifocal community-acquired pneumonia, right-sided empyema, and now metabolic acidosis from her acute renal failure. She is to me seems normal mental status, she recognized me and answer questions Continue BIPAP, right-sided empyema and right-sided pneumonia - 2nd to strep indeterminus. s/p chest tube placement (pleurX). Day #7 aztreonam & levaquin. Will need PROLONGED course of abx IV/PO. chest tube management to CT surgery. mixed metabolic & respiratory acidosis - portends very poor prognosis. 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 I share Dr. Gaviria's concern about her ability to tolerate HD in light of low BP and frail status. I also agree it would likely not improve her quality of life.anemia - suspect due to anemia of chronic kidney disease as well as blood draws, etc. H/H worse today. In light of worsening status, if Hb <8, would need transfusion but would only tolerate such if hemodialysis is initiated. hypotension - ongoing/intermittent. HOLDing all home BP meds. Suspect multifactorial. chest pain - cxr today unchang Possible sepsis sepsis 2nd to empyema metabolic encephalopathy - due to worsening hypercarbia, uremia, etc. Seems today's resolved DVT proph - heparin. diarrhea - c diff neg x 2. Abx-associated. Cont probiotics. thrush - nystatin QID. Improved. Anemia hemoglobin 8.2 from 8.5, will follow-up anorexia - 2nd to #1, #2 - ongoing. , Will follow-up Discussed with the vascular surgeon, patient's 3 daughters, about the care plan , they have no questions to me now confirm with family ODE STATUS is Level III, okay CPR and shock and DO NOT INTUBATE Continued [facility] stay due to: abnormal vital signs, inadequate po fluid intake, ambulation difficulties, multiple IV medications needed, other (acute renal failure ) Discharge planning: uncertain
--- NOTE | 2016-06-29 11:48 | OPERATIVE REPORT ---
DATE OF OPERATION: 06/29/2016 PREOPERATIVE DIAGNOSIS: End-stage renal disease in need of dialysis. POSTOPERATIVE DIAGNOSIS: Same. PROCEDURE: Placement of right temporary femoral hemodialysis catheter. SURGEON: Dr. Lencho Thurston. ANESTHESIA: Dr. Jami Bustamante. ANESTHESIA: Local. ESTIMATED BLOOD LOSS: 2 mL. COMPLICATIONS: None apparent. CONDITION: Stable in her room. INDICATIONS: Ms. Sherrie Griffiths is a 89-year-old female who has been hospitalized for empyema and pneumonia and had a PleurX catheter placed last week. She has a history of chronic kidney disease with a baseline creatinine of 2.5, however it has worsened to a creatinine of 5 and she is in eminent need of hemodialysis for both electrolyte and BUN as well as fluid balance purposes. She and her family were advised of the risks and benefits of the procedure and agreed to undergo the above procedure. PROCEDURE: The patient was placed in supine position in her bed. A timeout occurred. The patient was prepped and draped in the usual fashion. Under ultrasound guidance the femoral vein was identified, it was patent. It was percutaneously accessed. A wire was passed into the femoral vein. A small esperanza was made in the skin and a catheter was placed over the wire into the femoral vein. The catheter flushed and withdrew easily. The catheter was sutured in place. The catheter was dressed and drapes removed. The patient tolerated the procedure well. Dr. Lencho Thurston was present for the entirety of this case. I attest to the content of the Intraoperative Record and any orders documented therein. Any exceptions are noted below. I, Dr. Thurston was present and scurbbed for the entire procedure. [facility]
[2016-06-29 12:26] LABS: HEPATITIS B AB NEG
--- NOTE | 2016-06-29 12:35 | Nephrology Progress Note ---
Nephrology Progress Note Date of Service Jun 29, 2016. Chief Complaint Follow-up for acute kidney injury with history of advanced chronic kidney disease. Mimi Siegel was seen and examined in her room with her family at bedside. She was on BiPAP. She denied any shortness of breath or any other specific symptom except feels tired. She clearly mentioned that she wants to live, wants to have dialysis and after long discussion with the primary team yesterday patient decided to be a full code. Her renal function continues to decline creatinine 4.5 this morning and she became acidemic and her pH has been 7.2. Urine output continues to be low. Review of Systems A complete review of systems was performed. Pertinent positives are noted above. All other systems are negative. Vital Signs Last 8 Hrs Date Time Temp Pulse Resp B/P Pulse Ox O2 Delivery O2 Flow Rate FiO2 06/29/16 07:23 36.5 72 20 96/65 100 BiPAP 06/29/16 07:08 93 50 06/29/16 07:04 70 16 93 BiPAP/CPAP 06/29/16 04:00 BiPAP 50 06/29/16 03:41 75 21 102/57 100 BiPAP 50 06/29/16 02:00 80 97 50 06/29/16 01:40 36.7 80 20 85/47 98 BiPAP 50 I & O 24-Hour Column 06/29/16 08:00 Intake Total 591 ml Output Total 50 ml Balance 541 ml Last Recorded Weight Weight (Kilograms): 45.500 Physical Exam GENERAL: Frail, elderly lady, AAA x 3, ill-appearing, not in any distress. NECK: Supple, no JVD. RESPIRATORY: Normal breathing efforts, no accessory muscle use, crackles bilaterally at bases. CARDIOVASCULAR: S1, S2 normal, rate rhythm regular. EXTREMITY: No lower extremity edema NEURO: speech fluent. PSYCHIATRY: Normal mood and judgment Family History FH: HTN (hypertension) FH: cancer FH: kidney disease Heart disease Social History Smoking Status: Former smoker Drug Use: none Marital Status: Occupation: retired Laboratory Results Past 24 Hours 06/29/16 06:10 06/28/16 17:10 06/29/16 06:10 Test 06/28/16 17:02 06/28/16 17:10 06/28/16 22:52 06/29/16 06:10 Bedside Glucose 92 mg/dl (70-90) Venous Blood pH 7.21 (7.36-7.41) 7.23 (7.36-7.41) Venous Blood Partial Pressure CO2 53 mmHg (38.0-50.0) 55 mmHg (38.0-50.0) Venous Blood Partial Pressure O2 51 mmHg 36 mmHg Venous Blood HCO3 21 mmol/L 22 mmol/L Venous Blood Oxygen Saturation 82.4 % 67.7 % Venous Blood Base Excess -7.1 mmol/L -5.2 mmol/L Anion Gap 9.0 mmol/L (3-11) 11.0 mmol/L (3-11) Est Creatinine Clear Calc Drug Dose 6.3 ml/min 5.9 ml/min Estimated GFR () 9.7 9.0 Estimated GFR (Non- 8.4 7.7 BUN/Creatinine Ratio 21.6 (10-20) 21.1 (10-20) Lactic Acid Level 0.9 mmol/L (0.4-2.0) Calcium Level 7.7 mg/dl (8.5-10.1) 7.8 mg/dl (8.5-10.1) Ammonia 14.0 umol/L (11-32) Troponin I < 0.015 ng/ml (0-0.045) < 0.015 ng/ml (0-0.045) Red Blood Count 2.78 M/uL (4.2-5.4) Mean Corpuscular Volume 92.4 fL (80-100) Mean Corpuscular Hemoglobin 29.5 pg (25-34) Mean Corpuscular Hemoglobin Concent 31.9 g/dl (32-36) RDW Standard Deviation 51.7 fL (36.4-46.3) RDW Coefficient of Variation 15.5 % (11.5-14.5) Mean Platelet Volume 10.0 fL (7.4-10.4) Test 06/29/16 07:18 Arterial Blood pH 7.25 (7.35-7.45) Arterial Blood Partial Pressure CO2 50 mmHg (35-46) Arterial Blood Partial Pressure O2 160 mm/Hg (80-95) Arterial Blood HCO3 22 mmol/L (19-24) Arterial Blood Oxygen Saturation 96.7 % (90-95) Arterial Blood Base Excess -5.2 mEq/L (-9-1.8) Arterial Blood Gas Delivery 50% Mario Test POSITIVE (POS) Allergies Coded Allergies: Penicillins (Verified Allergy, Intermediate, hives, 06/23/16) Medications Current Inpatient Medications Medications (Trade) Dose Ordered Sig/Lavonne Route Start Time Stop Time Status Last Admin Dose Admin Ondansetron HCl (Zofran Inj) 4 mg Q6H PRN IV 06/23/16 18:30 07/23/16 18:29 06/27/16 20:37 4 MG Heparin Sodium (Porcine) (Heparin Sq 5000 Unit/0.5ml) 5,000 unit Q12 SQ 06/23/16 21:00 07/23/16 18:29 06/28/16 20:45 5,000 UNIT Atenolol 100 mg 100 mg DAILY PO 06/24/16 09:00 07/24/16 08:59 Future Hold 06/25/16 10:06 100 MG Levofloxacin 500 mg/Prmx 100 ml @ 100 mls/hr Q48H IV 06/25/16 18:30 06/29/16 23:00 06/27/16 19:09 100 MLS/HR Aztreonam/Dextrose (Azactam IV/D5 100ml) 110 ml @ 100 mls/hr Q8H IV 06/24/16 04:00 07/01/16 03:59 06/29/16 04:24 100 MLS/HR Albuterol/ Ipratropium (Duoneb) 3 ml QIDR INH 06/23/16 20:00 07/23/16 19:59 06/29/16 07:04 3 ML Levofloxacin (Consult) 1 ea UD PRN N/A 06/23/16 21:30 07/23/16 21:29 Diltiazem HCl (TIAzac CAP) 180 mg DAILY PO 06/24/16 10:00 07/24/16 09:59 Future Hold 06/25/16 10:06 180 MG Saccharomyces Boulardii (Florastor Cap) 250 mg DAILY PO 06/25/16 09:00 07/25/16 08:59 06/28/16 08:38 250 MG Enteral Nutritional Formula (Boost Breeze Nutritional Drink) 1 box AC PO 06/24/16 17:15 07/24/16 17:14 06/28/16 12:25 1 BOX Megestrol Acetate (Megace Susp) 400 mg QAM PO 06/26/16 11:30 07/26/16 11:29 06/28/16 08:37 400 MG Multivitamins/ Minerals (Multivitamin W/ Minerals Tab) 1 tab QAM PO 06/26/16 11:30 07/26/16 11:29 06/28/16 08:37 1 TAB Nystatin 5 ml 5 ml QID PO 06/26/16 13:00 07/06/16 12:59 06/28/16 20:35 5 ML Dextrose/Sodium Chloride (D5W And Nss) 1,000 ml @ 50 mls/hr Q20H IV 06/27/16 10:00 07/27/16 09:59 Future Hold 06/28/16 06:04 50 MLS/HR Guaifenesin (Mucinex Contr Rel Tab) 600 mg Q12 PO 06/27/16 21:00 07/27/16 20:59 06/28/16 08:37 600 MG Acetaminophen (Tylenol Soln) 1,000 mg Q8 PO 06/28/16 10:45 07/28/16 10:44 06/29/16 05:53 1,000 MG Lidocaine (Lidoderm Patch 5%) 1 patch DAILY@0900 TD 06/28/16 10:45 07/28/16 10:44 06/28/16 11:23 1 PATCH Miscellaneous (Remove Lidoderm Patch) 1 ea DAILY@21 N/A 06/28/16 21:00 07/28/16 20:59 06/28/16 20:46 1 EA Calcium Carbonate (Tums Chew Tab) 500 mg AC PRN PO 06/28/16 12:00 07/28/16 11:59 Calcitriol (Rocaltrol Cap) 0.25 mcg MoWeFr@0900 PO 06/29/16 09:00 07/29/16 08:59 Morphine Sulfate (MoRPHine SULFATE INJ) 2 mg Q4H PRN IV 06/28/16 21:00 07/12/16 20:59 Impression (1) Acute kidney injury (2) Stage 4 chronic kidney disease (3) Anemia (4) Empyema lung (5) Pneumonia Sherrie is a 89-year-old female with past medical history significant for stage 4 chronic kidney disease baseline creatinine 2-2.5, hypertension, admitted to the hospital with pneumonia and empyema. Had chest tube placed, currently on aztreonam and levofloxacin. Has baseline stage 4 chronic kidney disease, baseline creatinine 2-2.5, unclear etiology for chronic kidney disease, could be secondary to nephro toxicity from long-term NSAID use, hypertensive nephropathy or prior history of acute kidney injury with non recovery. On admission her creatinine was 2.4 which has been worsening over last few days and 3.6 this morning and over last 24 hours she has been oliguric. Electrolytes so far has been stable and volume status acceptable. No urinalysis available. No history of diabetes or coronary artery disease. Renal ultrasound low shows bilateral atrophic kidney with marked echogenicity. History of NSAID use for years but stopped using more than a year ago. No history of autoimmune disorder. No family history of chronic kidney disease. Nonsmoker. Recommendations --Discussed with the vascular surgery and they will try to schedule her for tunnel dialysis catheter this morning and plan for 1st dialysis treatment this afternoon for 1.5 hours with low blood flow and ultra filtration as tolerated considering her blood pressure being low. Discussed with the dialysis nurse regarding dialysis orders --Will get social service involved to start processing for outpatient dialysis setup --explained again with her relatively low blood pressure she may not tolerate the procedure for the tunnel catheter or eventual dialysis treatment. -- Patient and family verbalized understanding --Renal function continues to decline creatinine 4.5 and she seems to be having some uremic symptoms. -- protective left upper extremity -- Okay to use Lasix as needed -- continue on Tums 1 tablet with each meal, calcitriol 0.25 microgram p.o. 3 times weekly and she received epogen 26842 units subcu x1 dose yesterday. -- continue on low-potassium diet -- continue to monitor renal function closely, monitor urine output Will follow
[2016-06-29] MEDS: LIDODERM (LIDOCAINE) PATCH 5% TD SCH (12:58)
[2016-06-29] MEDS: CALCITRIOL 0.25 MCG CAP PO SCH (13:01)
[2016-06-29] MEDS: MoRPHine SULFATE 2 MG/ML CARP IV PRN (15:50)
[2016-06-29] MEDS ORDERED: AZTREONAM CONSULT ACTIVE PRN ×2 (16:15)
--- NOTE | 2016-06-29 16:53 | SURGERY PROGRESS NOTE ---
DATE: 06/29/2016 SUBJECTIVE: Ms. Griffiths was seen today. She is deteriorating. Her renal failure has led to a real problem with oxygenation. The CT scan and the chest x-rays show good drainage of this empyema; however, at almost 89 years of age and increasing acute renal failure on top of chronic renal failure, her chances of survival are low. The patient is scheduled to undergo dialysis. This may help her from a respiratory standpoint however, I think the chance of this 89-year-old recovering is very slim. From our standpoint, we are simply going to continue to drain her PleurX catheter. It was drained for about 50 mL this morning. A repeat culture with gram stain of her fluid showed no organisms. She did have streptococcal intermedius gram positive empyema on her original fluid. Radiographically, she has responded nicely to the drainage; however, her big problem now is her renal failure. ROSAMARIA
[2016-06-29] MEDS: LEVOFLOXACIN / D5W 500 MG in PREMIXED IN D5W 100 ML IV SCH (19:00)
[2016-06-29] MEDS: AZTREONAM IV 500 MG in DEXTROSE 5% 100ML 100 ML IV SCH (20:25)
[2016-06-30] VITALS (21 sets, daily range): BP systolic 89–110; BP diastolic 45–68; PULSE 55–78; TEMP 35.7–36.4; O2SAT 97–100
[2016-06-30] MEDS: ONDANSETRON INJ 2 MG/ML 2 ML VIAL IV PRN ×2 (01:08→09:50)
[2016-06-30] MEDS: MoRPHine SULFATE 2 MG/ML CARP IV PRN ×2 (01:50→09:50)
[2016-06-30] MEDS: AZTREONAM IV 500 MG in DEXTROSE 5% 100ML 100 ML IV SCH ×3 (04:31→20:12)
[2016-06-30] MEDS: ACETAMINOPHEN SOLN 500 MG/15.62 ML UDP PO SCH ×3 (05:45→22:27)
[2016-06-30] MEDS: BOOST BREEZE NUTRITION DRINK 1 BOX PO SCH ×3 (07:00→16:15)
[2016-06-30] MEDS: ALBUT/IPRATROP 3MG/0.5MG NEB 3 ML VIAL INH SCH ×4 (07:09→20:02)
[2016-06-30 07:34] LABS: BUN/CREATININE RATIO 22.2 (10-20); CALCIUM 8.1 mg/dl (8.5-10.1); CREATININE 3.9 mg/dl (0.60-1.20); POTASSIUM 4.4 mmol/L (3.5-5.1)
[2016-06-30] MEDS: SACCHAROMYCES BOUL (FLORASTOR) 250 MG CAP PO SCH (09:00)
[2016-06-30] MEDS: HEPARIN SOD 5000 UNIT/0.5 ML CARP SQ SCH ×2 (09:00→20:15)
[2016-06-30] MEDS: CEROVITE ADV FORMULA TAB PO SCH (09:00)
[2016-06-30] MEDS: MEGESTROL ACETATE SUSP 400 MG/10 ML UDC PO SCH (09:08)
[2016-06-30] MEDS: LIDODERM (LIDOCAINE) PATCH 5% TD SCH (09:09)
[2016-06-30] MEDS: GUAIFENESIN 600 MG TABCR PO SCH (09:10)
[2016-06-30] MEDS: NYSTATIN SUSP 500,000 U/5 ML UDC PO SCH ×4 (09:10→20:13)
[2016-06-30] MEDS: NEPHROCAPS PO SCH (09:10)
--- NOTE | 2016-06-30 09:12 | DIAGNOSTIC IMAGING REPORT ---
SINGLE VIEW CHEST CLINICAL HISTORY: Empyema. FINDINGS: An AP, portable, upright chest radiograph is compared to study dated 06/28/2016 and correlated with chest CT dated 06/27/2016. The examination is degraded by portable technique and patient rotation. A chest tube at the right lung base is unchanged in position. A small loculated hydropneumothorax at the right lung base is unchanged with associated right basilar consolidation. Nodular airspace opacities are seen in the right upper lung. The left lung appears clear. Advanced emphysema is again noted and there is chronic interstitial thickening. The cardiomediastinal silhouette is unremarkable. There is advanced atherosclerotic calcification of the thoracic aorta. The skeletal structures are osteopenic. The bony thorax is grossly intact. Extensive subcutaneous emphysema is again seen along the right chest wall and in the right lower neck. IMPRESSION: 1. A chest tube at the right lung base is unchanged in position, and there is unchanged appearance of a small loculated right basilar hydropneumothorax with associated right basilar consolidation. 2. Emphysema. The left lung appears clear. Electronically signed by: Augustine Peralta M.D. 06/30/2016 9:10 AM Dictated Date/Time: 06/30/2016 9:07 AM
[2016-06-30] MEDS ORDERED: NURSING VERBAL MED ORDER ONE ×3 (10:15→16:30)
[2016-06-30] MEDS: MULTIVITAMINS W/MINERALS 15ML UDP PO SCH (12:15)
[2016-06-30] MEDS ORDERED: HYDROmorphone HCL 2 MG TAB PO PRN (12:15)
--- NOTE | 2016-06-30 12:36 | Nephrology Progress Note ---
Nephrology Progress Note Date of Service Jun 30, 2016. Chief Complaint Follow-up for acute kidney injury with history of advanced chronic kidney disease. Subjective Sherrie was seen and examined in her room with her daughters Beryl and Nya at bedside. she had dialysis yesterday for 1.5 hours and tolerated well. Currently blood pressure stable. She is on nasal canal oxygen, denies any significant shortness of breath or chest pain. However continues to be pretty lethargy. Urine output remains minimum. She is complaining of pain all over specially in the back. And her ankle. Review of Systems A complete review of systems was performed. Pertinent positives are noted above. All other systems are negative. Vital Signs Last 8 Hrs Date Time Temp Pulse Resp B/P Pulse Ox O2 Delivery O2 Flow Rate FiO2 06/30/16 12:04 78 18 98 Nasal Cannula 4.0 06/30/16 12:00 Nasal Cannula 4.0 06/30/16 11:32 35.7 72 20 94/58 98 4.0 06/30/16 08:00 Nasal Cannula 4.0 06/30/16 07:46 65 18 109/68 98 06/30/16 07:09 56 18 97 Nasal Cannula 4.0 I & O 24-Hour Column 06/30/16 08:00 Intake Total 601 ml Balance 601 ml Last Recorded Weight Weight (Kilograms): 51.500 Physical Exam GENERAL: Frail, elderly lady, AAA x 3, ill-appearing, not in any distress. NECK: Supple, no JVD. RESPIRATORY: Normal breathing efforts, no accessory muscle use, crackles bilaterally at bases. CARDIOVASCULAR: S1, S2 normal, rate rhythm regular. EXTREMITY: No lower extremity edema NEURO: speech fluent. PSYCHIATRY: Normal mood and judgment Family History FH: HTN (hypertension) FH: cancer FH: kidney disease Heart disease Social History Smoking Status: Former smoker Drug Use: none Marital Status: Occupation: retired Laboratory Results Past 24 Hours 06/30/16 06:10 Test 06/30/16 06:10 06/30/16 11:00 Anion Gap 11.0 mmol/L (3-11) Est Creatinine Clear Calc Drug Dose 8.1 ml/min Estimated GFR () 11.2 Estimated GFR (Non- 9.7 BUN/Creatinine Ratio 22.2 (10-20) Calcium Level 8.1 mg/dl (8.5-10.1) Allergies Coded Allergies: Penicillins (Verified Allergy, Intermediate, hives, 06/23/16) Medications Current Inpatient Medications Medications (Trade) Dose Ordered Sig/Lavonne Route Start Time Stop Time Status Last Admin Dose Admin Ondansetron HCl (Zofran Inj) 4 mg Q6H PRN IV 06/23/16 18:30 07/23/16 18:29 06/30/16 09:50 4 MG Heparin Sodium (Porcine) (Heparin Sq 5000 Unit/0.5ml) 5,000 unit Q12 SQ 06/23/16 21:00 07/23/16 18:29 06/29/16 20:30 5,000 UNIT Atenolol (Tenormin Tab) 100 mg DAILY PO 06/24/16 09:00 07/24/16 08:59 Future Hold 06/25/16 10:06 100 MG Albuterol/ Ipratropium (Duoneb) 3 ml QIDR INH 06/23/16 20:00 07/23/16 19:59 06/30/16 12:04 3 ML Levofloxacin (Consult) 1 ea UD PRN N/A 06/23/16 21:30 07/23/16 21:29 Diltiazem HCl (TIAzac CAP) 180 mg DAILY PO 06/24/16 10:00 07/24/16 09:59 Future Hold 06/25/16 10:06 180 MG Saccharomyces Boulardii (Florastor Cap) 250 mg DAILY PO 06/25/16 09:00 07/25/16 08:59 06/28/16 08:38 250 MG Enteral Nutritional Formula (Boost Breeze Nutritional Drink) 1 box AC PO 06/24/16 17:15 07/24/16 17:14 06/30/16 12:15 1 BOX Megestrol Acetate (Megace Susp) 400 mg QAM PO 06/26/16 11:30 07/26/16 11:29 06/30/16 09:08 400 MG Nystatin 5 ml 5 ml QID PO 06/26/16 13:00 07/06/16 12:59 06/30/16 12:16 5 ML Dextrose/Sodium Chloride (D5W And Nss) 1,000 ml @ 50 mls/hr Q20H IV 06/27/16 10:00 5/22/17 09:59 Future Hold 06/28/16 06:04 50 MLS/HR Guaifenesin (Mucinex Contr Rel Tab) 600 mg Q12 PO 06/27/16 21:00 07/27/16 20:59 06/30/16 09:10 600 MG Acetaminophen (Tylenol Soln) 1,000 mg Q8 PO 06/28/16 10:45 07/28/16 10:44 06/30/16 05:45 1,000 MG Lidocaine (Lidoderm Patch 5%) 1 patch DAILY@0900 TD 06/28/16 10:45 07/28/16 10:44 06/30/16 09:09 1 PATCH Miscellaneous (Remove Lidoderm Patch) 1 ea DAILY@21 N/A 06/28/16 21:00 07/28/16 20:59 06/29/16 20:28 1 EA Calcium Carbonate (Tums Chew Tab) 500 mg AC PRN PO 06/28/16 12:00 07/28/16 11:59 Calcitriol (Rocaltrol Cap) 0.25 mcg MoWeFr@0900 PO 06/29/16 09:00 07/29/16 08:59 06/29/16 13:01 0.25 MCG Vitamin B Complex/ Vit C/Folic Acid 1 cap 1 cap QAM PO 06/30/16 09:00 07/30/16 08:59 06/30/16 09:10 1 CAP Aztreonam/Dextrose (Azactam IV/D5 100ml) 105 ml @ 110 mls/hr Q8H IV 06/29/16 20:00 07/01/16 03:59 06/30/16 12:21 110 MLS/HR Aztreonam (Consult) 1 ea UD PRN N/A 06/29/16 16:15 07/29/16 16:14 Multivitamins Therapeutic (Cerovite Liquid) 15 ml QAM PO 06/30/16 12:00 07/30/16 11:59 06/30/16 12:15 15 ML Miscellaneous Information (Nursing Verbal Med Order) 1 ea ONE ONCE N/A 06/30/16 10:15 06/30/16 10:16 UNV Hydromorphone HCl (Dilaudid Tab) 1 mg Q6H PRN PO 06/30/16 12:15 07/14/16 12:14 UNV Impression (1) Acute kidney injury (2) Stage 4 chronic kidney disease (3) Anemia (4) Empyema lung (5) Pneumonia Sherrie is a 89-year-old female with past medical history significant for stage 4 chronic kidney disease baseline creatinine 2-2.5, hypertension, admitted to the hospital with pneumonia and empyema. Had chest tube placed, currently on aztreonam and levofloxacin. Has baseline stage 4 chronic kidney disease, baseline creatinine 2-2.5, unclear etiology for chronic kidney disease, could be secondary to nephro toxicity from long-term NSAID use, hypertensive nephropathy or prior history of acute kidney injury with non recovery. On admission her creatinine was 2.4 which has been worsening over last few days and 3.6 this morning and over last 24 hours she has been oliguric. Electrolytes so far has been stable and volume status acceptable. No urinalysis available. No history of diabetes or coronary artery disease. Renal ultrasound low shows bilateral atrophic kidney with marked echogenicity. History of NSAID use for years but stopped using more than a year ago. No history of autoimmune disorder. No family history of chronic kidney disease. Nonsmoker. Recommendations --discontinue morphine and start on Dilaudid 1 milligram every 6 hours --Physical therapy evaluation -- discussed with social service to make referral to [facility] as family requested a rehab facility where there is dialysis available -- discussed with vascular surgery for possibility for tunnel dialysis catheter in next 1-2 days and removal of on the femoral line -- protective left upper extremity -- Okay to use Lasix as needed -- continue on Tums 1 tablet with each meal, calcitriol 0.25 microgram p.o. 3 times weekly and she received epogen 23341 units subcu x1 dose yesterday. -- continue on low-potassium diet -- discussed the plan in detail with patient's family, the patient, Zach from social service and Dr. Garsia Will follow
[2016-06-30] MEDS: GUAIFENESIN SUGAR FREE 100 MG/5 ML UDC PO SCH ×3 (14:14→22:26)
[2016-06-30] MEDS ORDERED: LIDODERM (LIDOCAINE) PATCH 5% TD SCH (14:15)
[2016-06-30 15:21] LABS: HEMATOCRIT 22.1 % (37-47); MEAN CELL VOLUME 92.5 fL (80-100); MEAN CORPUSCULAR HEMOGLOBIN 29.7 pg (25-34); MEAN PLATELET VOLUME 9.1 fL (7.4-10.4); PLATELET COUNT 285 K/uL (130-400); RED BLOOD COUNT 2.39 M/uL (4.2-5.4); WHITE BLOOD COUNT 11.57 K/uL (4.8-10.8)
[2016-06-30 15:28] LABS: MEAN CORPUSCULAR HGB CONC 32.1 g/dl (32-36)
[2016-06-30 16:04] LABS: BUN/CREATININE RATIO 22.5 (10-20); CALCIUM 7.6 mg/dl (8.5-10.1); CREATININE 2.7 mg/dl (0.60-1.20); POTASSIUM 3.7 mmol/L (3.5-5.1)
[2016-06-30] MEDS ORDERED: VANCOMYCIN CONSULT ACTIVE PRN (16:15)
--- NOTE | 2016-06-30 16:28 | Pharmacy Progress Note ---
Pharmacy Antibiotic Consult Date of Service: Jun 30, 2016. Pharmacy Dosing Scope Pharmacy is consulted to initiate Vancomycin IV dosing therapy, order appropriate labs and adjust drug dose/frequency. Subjective The patient is a 89 year old female admitted on Jun 23, 2016 at 18:26 with right sided pneumonia and empyema. Objective Height (Feet): 5 Height (Inches): 4.00 Weight (Kilograms): 51.500 Lab Results (24hrs): Laboratory Tests Test 06/30/16 06:10 06/30/16 15:10 BUN/Creatinine Ratio 22.2 22.5 Blood Urea Nitrogen 87 mg/dl 61 mg/dl Creatinine 3.90 mg/dl 2.70 mg/dl White Blood Count 11.57 K/uL Micro Results: Item Value Date Time Blood Culture - Final Complete 06/23/16 1645 Blood NO GROWTH Blood Culture - Final Complete 06/23/16 1657 Blood NO GROWTH C.difficile Toxin B Gene (PCR) - Final Complete 06/24/16 0310 Stool No C. difficile toxin B gene detected Acid Fast Stain - Final Resulted 06/24/16 0727 Pleural Fluid (Thoracentesis) Right Fungal Smear - Final Resulted 06/24/16 0727 Pleural Fluid (Thoracentesis) Right C.difficile Toxin B Gene (PCR) - Final Complete 06/26/16 1720 Stool No C. difficile toxin B gene detected Gram Stain - Final Resulted 06/28/16 0718 Pleural Fluid (Thoracentesis) Right RUN DATE: 06/29/16 [facility] LAB PAGE 1 RUN TIME: 1229 Specimen Inquiry PATIENT: TANISHA GAMA LOC: [facility]ung[facility] U # : [id number] AGE/SX: 89/F ROOM: [facility] REG : 06/23/[address]: Zach Humphreys MD, PhD : [id number] BED: 1 DIS : STATUS: ADM IN TLOC: SPEC #: [id number] ALMAR: 06/24/16 STATUS: COMP REQ #: [id number] RECD: 06/24/16 [facility] DR: Kwaku Dennison PA SOURCE: PLEURAL FL ENTR: 06/24/[address]: Joe Murphy M.D. SPDESC: Pramod Thompson D.O. Whitlark, Joseph D., MD ORDERED: AER/NESTOR CULTSMR COMMENTS: Specimen Comment Tube #2 Has Specimen Been Obtained/Collected? Y Procedure Result Verified Site GRAM STAIN Final 06/24/16 RESULT MANY POLYS MANY GRAM POSITIVE COCCI OR AER/NESTOR CULT Final 06/29/16-1228 Organism 1 STREPTOCOCCUS INTERMEDIUS QUANITY MANY SENS NO SENSITIVITY TO FOLLOW Assessment & Plan Assessment 89 year old female on day #7 of Azactam + Levaquin for treatment of right sided pneumonia with empyema. h/o CKD stage 4 with worsening Scr this admission, s/p insertion of ight femoral vein temporary dialysis catheter on 06/29. Patient had HD 1.5 hr session on 06/29. Patient became unresponsive during HD today. Pleural fluid culture from 06/24 grew streptococcus intermedius (no sensitivity avail.) Plan Add Vancomycin for treatment of right sided pneumonia with empyema. Vancomycin IV * A one time dose of 1000 mg (19 mg/kg) IV will be given now * Further dosing will be based on random levels due to HD * Goal trough level for pnx/empyema: 15 to 20 mcg/mL * Random level ordered for 07/01/16 Pharmacy will continue to follow and will adjust dose/frequency as necessary. Thank you
--- NOTE | 2016-06-30 16:29 | SURGERY PROGRESS NOTE ---
DATE: 06/30/2016 SUBJECTIVE: Ms. Griffiths was seen today on 06/30/2016. I had a very long discussion with 2 of her daughters. I have explained to the patient has chronic renal insufficiency which they seemed surprised at. I also told them that she did have an empyema. 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 We had very little fluid out today. Her cultures were negative after drainage. I explained to them that this woman is almost 89 and this empyema simply exacerbated her renal insufficiency. She had dialysis yesterday and looks much better. Her A-a gradient is much improved. I have explained that we will simply plan on leaving the PleurX in for the time being. ROSAMARIA
[2016-06-30] MEDS ORDERED: VANCOMYCIN INJ 1,000 MG in SODIUM CHLORIDE 0.9% 250ML 250 ML IV SCH (17:00)
[2016-06-30] MEDS: HYDROCORTISONE 2.5% CR 30 GM TUBE EXT PRN (17:47)
[2016-06-30] MEDS: HYDROmorphone INJ 0.5 MG/0.5 ML SYR IV PRN (17:48)
[2016-06-30 19:29] LABS: HEMATOCRIT 24.6 % (37-47)
--- NOTE | 2016-06-30 22:26 | Hospitalist Progress Note ---
Hospitalist Progress Note Date of Service Jun 30, 2016. Subjective Pt evaluation today including: conversation w/ patient, conversation w/ family , physical exam, chart review, lab review, review of studies, conversation w/ business intelligence consultant (thoracic surgery, nephrology), review of inpatient medication list I saw patient several times today throughout the day and had multiple discussions with her and her daughters. In the morning, she was feeling weak but was doing okay. A lengthy discussion was had at that time with her and her daughters about her prognosis and her conditions. She wanted to proceed with dialysis again today. I had to come back later when the patient was noted to be unresponsive partway through dialysis. non destructive evaluation technician reports that the patient was responding to her questions but them was noted to be unresponsive requiring sternal rub to get her to respond. Her blood pressure and heart rate were normal and she was in a normal sinus rhythm on telemetry at the time of the episode, she did not lose her pulse. Her blood pressure was 100/70 approximately. When I saw her she was able to answer my questions but was very drowsy. She denied chest pain or shortness of breath, denied headache, denied weakness or numbness or tingling. She was able to move all of her extremities and did not have a facial droop or pronator drift. EKG showed chronic ST/T- wave abnormalities in the lateral leads but this was unchanged. Laboratories initially showed hemoglobin down to 7.1 but repeat was 7.8 and it was thought to be a lab error. However, she did have a dark stool this morning which was heme positive. Constitutional: No fever Respiratory: No shortness of breath Cardiovascular: No chest pain Abdomen: + GI bleeding, No pain All Other Systems: Reviewed and Negative Objective Vital Signs Date Time Temp Pulse Resp B/P Pulse Ox O2 Delivery O2 Flow Rate FiO2 06/30/16 20:00 Nasal Cannula 4.0 06/30/16 19:23 36.3 70 20 105/66 100 Nasal Cannula 4.0 06/30/16 19:15 78 20 99 Nasal Cannula 4.0 06/30/16 16:00 Nasal Cannula 4.0 06/30/16 15:51 78 18 98 Nasal Cannula 4.0 06/30/16 15:47 36.0 69 20 110/64 100 Nasal Cannula 5.0 06/30/16 14:58 68 16 102/67 100 Nasal Cannula 4.0 06/30/16 14:40 36.2 67 98/55 06/30/16 14:35 71 98/54 06/30/16 14:30 65 100/61 06/30/16 14:15 68 96/57 06/30/16 14:00 69 100/54 06/30/16 13:45 55 100/58 06/30/16 13:30 63 95/54 06/30/16 13:15 59 89/51 06/30/16 13:00 68 94/45 06/30/16 12:45 36.0 76 101/51 06/30/16 12:04 78 18 98 Nasal Cannula 4.0 06/30/16 12:00 Nasal Cannula 4.0 06/30/16 11:32 35.7 72 20 94/58 98 4.0 06/30/16 08:00 Nasal Cannula 4.0 06/30/16 07:46 65 18 109/68 98 06/30/16 07:09 56 18 97 Nasal Cannula 4.0 06/30/16 04:00 Nasal Cannula 4.0 06/30/16 03:48 36.4 69 19 106/65 100 Nasal Cannula 4.0 06/30/16 00:00 Nasal Cannula 4.0 06/29/16 23:54 36.3 77 16 90/52 99 Nasal Cannula 4.0 06/29/16 23:16 78 18 95 Nasal Cannula 4.0 Physical Exam General Appearance: no apparent distress, + thin Eyes: normal inspection, PERRL, EOMI, sclerae normal ENT: hearing grossly normal, pharynx normal Neck: trachea midline Respiratory/Chest: no respiratory distress, no accessory muscle use, + decreased breath sounds (at the right base) Cardiovascular: regular rate, rhythm, + diastolic murmur ( I suspect a suspected 2/6 diastolic murmur heard best at the right upper sternal border) Abdomen: normal bowel sounds, non tender, soft Extremities: no calf tenderness, + pertinent finding (trace pitting edema in the legs bilaterally) Neurologic/Psychiatric: syrup maker cook II-XII nml as tested, no motor/sensory deficits, alert (but drowsy after episode of syncope during dialysis), oriented x 3 Skin: normal color, warm/dry, no rash Laboratory Results Last 24 Hours Test 06/30/16 06:10 4/25/17 11:00 06/30/16 15:10 06/30/16 19:06 Sodium Level 139 mmol/L 141 mmol/L Potassium Level 4.4 mmol/L 3.7 mmol/L Chloride Level 106 mmol/L 108 mmol/L Carbon Dioxide Level 22 mmol/L 25 mmol/L Anion Gap 11.0 mmol/L 8.0 mmol/L Blood Urea Nitrogen 87 mg/dl 61 mg/dl Creatinine 3.90 mg/dl 2.70 mg/dl Est Creatinine Clear Calc Drug Dose 8.1 ml/min 11.7 ml/min Estimated GFR () 11.2 17.5 Estimated GFR (Non- 9.7 15.1 BUN/Creatinine Ratio 22.2 22.5 Random Glucose 86 mg/dl 93 mg/dl Calcium Level 8.1 mg/dl 7.6 mg/dl Stool Occult Blood POSITIVE White Blood Count 11.57 K/uL Red Blood Count 2.39 M/uL Hemoglobin 7.1 g/dL Hematocrit 22.1 % Mean Corpuscular Volume 92.5 fL Mean Corpuscular Hemoglobin 29.7 pg Mean Corpuscular Hemoglobin Concent 32.1 g/dl RDW Standard Deviation 52.4 fL RDW Coefficient of Variation 15.7 % Platelet Count 285 K/uL Mean Platelet Volume 9.1 fL Creatine Kinase MB Ratio Test 06/30/16 19:22 Hemoglobin 7.8 g/dL Hematocrit 24.6 % Creatine Kinase MB 6.1 ng/ml Troponin I < 0.015 ng/ml Assessment and Plan 89yo female admitted on 06/23/2016 because of acute hypoxic and now hypercarbic respiratory failure, was on BiPAP, and has suffered worsening renal function now requiring hemodialysis. acute hypoxic and hypercarbic respiratory failure, slightly improved now and weaned off of BiPAP to nasal cannula after 1 round of hemodialysis as well as treatment for her empyema 2nd to multifocal community-acquired pneumonia, right-sided empyema, and now metabolic acidosis from her acute renal failure. -Continue to support with supplemental oxygen but patient has chosen to not be mechanically ventilated Right-sided empyema and right-sided pneumonia - 2nd to strep indeterminus. Repeat pleural fluid cultures are now without any growth s/p chest tube placement (pleurX) and drainage with instillation of TPA. Day #8 aztreonam & levaquin however better strep coverage would be with vancomycin as sensitivities to Levaquin were not performed and aztreonam does not typically cover for strep. Rocephin would be best that she has a penicillin allergy so we'll hold off on that. Will need PROLONGED course of abx IV/PO. chest tube management to CT surgery-discussed with thoracic surgery and will continue with Pleurx catheter in place Mixed metabolic & respiratory acidosis - portends very poor prognosis. Seems to be slightly improved today after receiving first dialysis yesterday. Acute renal failure in the setting of CKD stage 5, hemodialysis related syncope - right femoral catheter placed for temporary dialysis access BUN & Cr continued to worsen despite supportive care measures., Peak creatinine is 4.7, acidosis in ABG pH 7.25 Nephrology on the case, received dialysis gently but had syncope during her second session and all fluid was returned to her and dialysis was aborted. Although patient is not a good candidate for dialysis and dialysis catheter, and possible no benefit from the dialysis for life quality and life expectancy, patient and family wanted to continue for the need of dialysis. Given her episode of syncope during dialysis today which was likely due to hypotension, she will not likely be able to continue with dialysis. Nephrology will discuss this with the family and patient tomorrow. -Follow troponin and ECGs for syncope but was likely due to hypotension Anemia - suspect due to anemia of chronic kidney disease as well as blood draws , etc. but also with Hemoccult positive stool H/H worse today at 7.1 which was probably a lab air and repeat was 7.8 In light of worsening status, if Hb <8, would need transfusion but would only tolerate such if hemodialysis is initiated. Will not transfuse today due to this. -Follow CBC in the morning hypotension - ongoing/intermittent. HOLDing all home BP meds. Suspect multifactorial. Possible sepsis 2nd to empyema-resolved Metabolic encephalopathy - due to worsening hypercarbia, uremia, etc. -resolved DVT proph - heparin. diarrhea - c diff neg x 2. Abx-associated. Cont probiotics. thrush - nystatin QID. Improved. anorexia -secondary to renal failure and empyema. Discussed with daughters were very concerned that patient is not eating much -Continue Megace CODE STATUS is Level III, okay with CPR and shock and DO NOT INTUBATE Disposition-overall guarded prognosis. Discussed with all 3 daughters and patient today. We'll continue ongoing discussion with patient and family tomorrow.
[2016-07-01] VITALS (12 sets, daily range): BP systolic 92–117; BP diastolic 51–68; PULSE 65–88; TEMP 36.2–36.4; O2SAT 95–100
[2016-07-01] MEDS: HYDROmorphone INJ 0.5 MG/0.5 ML SYR IV PRN (01:19)
[2016-07-01] MEDS: GUAIFENESIN SUGAR FREE 100 MG/5 ML UDC PO SCH ×6 (02:00→21:18)
[2016-07-01 05:26] LABS: HEMATOCRIT 25.6 % (37-47); MEAN CELL VOLUME 92.1 fL (80-100); MEAN CORPUSCULAR HEMOGLOBIN 29.5 pg (25-34); MEAN PLATELET VOLUME 9.5 fL (7.4-10.4); PLATELET COUNT 355 K/uL (130-400); RED BLOOD COUNT 2.78 M/uL (4.2-5.4)
[2016-07-01 05:53] LABS: ALT/SGPT 22 U/L (12-78); AST/SGOT 13 U/L (15-37); BLOOD UREA NITROGEN 68 mg/dl (7-18); BUN/CREATININE RATIO 20.5 (10-20); CALCIUM 8.3 mg/dl (8.5-10.1); CARBON DIOXIDE 26 mmol/L (21-32); CHLORIDE 104 mmol/L (98-107); GLUCOSE 79 mg/dl (70-99); MAGNESIUM 1.9 mg/dl (1.8-2.4); SODIUM 139 mmol/L (136-145)
[2016-07-01] MEDS: ACETAMINOPHEN SOLN 500 MG/15.62 ML UDP PO SCH ×2 (05:55→14:21)
[2016-07-01 05:56] LABS: ALKALINE PHOSPHATASE 68 U/L (45-117); CKMB/CK RATIO 20.7 (0-3.0); PHOSPHORUS 6.8 mg/dl (2.5-4.9)
[2016-07-01 06:03] LABS: BASO % 0.2 %; BASO ABS # 0.03 K/uL (0-0.2); COMPLETE YES; EOS % 0.6 %; IG% 1.7 %; LYMPH % 5.6 %; LYMPH ABS # 0.79 K/uL (1.2-3.4); MONO % 5.1 %; NEUT % 86.8 %
[2016-07-01] MEDS: BOOST BREEZE NUTRITION DRINK 1 BOX PO SCH ×3 (07:00→16:07)
[2016-07-01] MEDS: ALBUT/IPRATROP 3MG/0.5MG NEB 3 ML VIAL INH SCH ×4 (08:03→19:26)
[2016-07-01] MEDS: SACCHAROMYCES BOUL (FLORASTOR) 250 MG CAP PO SCH (08:40)
[2016-07-01] MEDS: CALCITRIOL 0.25 MCG CAP PO SCH (08:41)
[2016-07-01] MEDS: NEPHROCAPS PO SCH (08:41)
[2016-07-01] MEDS: NYSTATIN SUSP 500,000 U/5 ML UDC PO SCH ×4 (08:42→21:18)
[2016-07-01] MEDS: MEGESTROL ACETATE SUSP 400 MG/10 ML UDC PO SCH (08:42)
[2016-07-01] MEDS: MULTIVITAMINS W/MINERALS 15ML UDP PO SCH (08:44)
[2016-07-01] MEDS: LIDODERM (LIDOCAINE) PATCH 5% TD SCH (08:45)
--- NOTE | 2016-07-01 09:08 | SURGERY PROGRESS NOTE ---
DATE: 07/01/2016 I saw Ms. Griffiths today. She drained about 50 mL from her PleurX catheter. I had another very long discussion with her 2 daughters and discussed many of the things we discussed yesterday. At this point, she appears to be tolerating the dialysis well and appears to have responded. I am encouraged by the fact she made 600 mL of urine. At this point, I would defer her care to the entertainment production professional and the hospitalist. We will follow her periodically for her tube and I would continue the daily drainage and I would not pull this out. Due to a in my family, I will be out of town for a few days. EMI Sen, as well as Dr. Redmond will cover the patient if there are any issues with this catheter.
--- NOTE | 2016-07-01 09:41 | Progress Note ---
Progress Note Date of Service Jul 01, 2016. Progress Note Pt tentatively scheduled for permcath insertion in OR on MONDAY 07/03, if she plans to continue HD. Discussed with Dr Gaviria.
[2016-07-01] MEDS: PANTOprazole INJ 40 MG in SYRINGE 0 ML IV SCH (11:19)
[2016-07-01] MEDS: HYDROCORTISONE 2.5% CR 30 GM TUBE EXT PRN (11:36)
--- NOTE | 2016-07-01 12:27 | Nephrology Progress Note ---
Nephrology Progress Note Date of Service Jul 01, 2016. Chief Complaint Follow-up for acute kidney injury with history of advanced chronic kidney disease. Review of Systems A complete review of systems was performed. Pertinent positives are noted above. All other systems are negative. Vital Signs Last 8 Hrs Date Time Temp Pulse Resp B/P Pulse Ox O2 Delivery O2 Flow Rate FiO2 07/01/16 08:03 73 18 98 Nasal Cannula 4.0 07/01/16 07:55 36.4 71 20 92/51 99 4.0 07/01/16 04:01 36.2 80 20 117/63 99 Nasal Cannula 4.0 07/01/16 04:00 Nasal Cannula 4.0 I & O 24-Hour Column 07/01/16 08:00 Intake Total 470 ml Output Total 910 ml Balance -440 ml Last Recorded Weight Weight (Kilograms): 51.500 Physical Exam GENERAL: Frail, elderly female, AAA x 3, ill-appearing, not in any distress. NECK: Supple, no JVD. RESPIRATORY: Normal breathing efforts, no accessory muscle use, crackles bilaterally at bases. CARDIOVASCULAR: S1, S2 normal, rate rhythm regular. EXTREMITY: No lower extremity edema NEURO: speech fluent. PSYCHIATRY: Normal mood and judgment Family History FH: HTN (hypertension) FH: cancer FH: kidney disease Heart disease Social History Smoking Status: Former smoker Drug Use: none Marital Status: Occupation: retired Laboratory Results Past 24 Hours 06/30/16 15:10 06/30/16 19:22 07/01/16 05:15 Red Blood Count 2.78, Mean Corpuscular Volume 92.1, Mean Corpuscular Hemoglobin 29.5, Mean Corpuscular Hemoglobin Concent 32.0, Mean Platelet Volume 9.5, Neutrophils (%) (Auto) 86.8, Lymphocytes (%) (Auto) 5.6, Monocytes (%) (Auto) 5.1, Eosinophils (%) (Auto) 0.6, Basophils (%) (Auto) 0.2, Neutrophils # (Auto) 12.23, Lymphocytes # (Auto) 0.79, Monocytes # (Auto) 0.72, Eosinophils # (Auto) 0.09, Basophils # (Auto) 0.03 06/30/16 15:10 07/01/16 05:15 Test 06/30/16 11:00 4/25/17 15:10 06/30/16 19:06 06/30/16 19:22 Stool Occult Blood POSITIVE (NEGATIVE) Red Blood Count 2.39 M/uL (4.2-5.4) Mean Corpuscular Volume 92.5 fL (80-100) Mean Corpuscular Hemoglobin 29.7 pg (25-34) Mean Corpuscular Hemoglobin Concent 32.1 g/dl (32-36) RDW Standard Deviation 52.4 fL (36.4-46.3) RDW Coefficient of Variation 15.7 % (11.5-14.5) Mean Platelet Volume 9.1 fL (7.4-10.4) Anion Gap 8.0 mmol/L (3-11) Est Creatinine Clear Calc Drug Dose 11.7 ml/min Estimated GFR () 17.5 Estimated GFR (Non- 15.1 BUN/Creatinine Ratio 22.5 (10-20) Calcium Level 7.6 mg/dl (8.5-10.1) Creatine Kinase MB Ratio (0-3.0) Creatine Kinase MB 6.1 ng/ml (0.5-3.6) Troponin I < 0.015 ng/ml (0-0.045) Test 07/01/16 05:15 White Blood Count 14.10 K/uL (4.8-10.8) Red Blood Count 2.78 M/uL (4.2-5.4) Hemoglobin 8.2 g/dL (12.0-16.0) Hematocrit 25.6 % (37-47) Mean Corpuscular Volume 92.1 fL (80-100) Mean Corpuscular Hemoglobin 29.5 pg (25-34) Mean Corpuscular Hemoglobin Concent 32.0 g/dl (32-36) Platelet Count 355 K/uL (130-400) Mean Platelet Volume 9.5 fL (7.4-10.4) Neutrophils (%) (Auto) 86.8 % Lymphocytes (%) (Auto) 5.6 % Monocytes (%) (Auto) 5.1 % Eosinophils (%) (Auto) 0.6 % Basophils (%) (Auto) 0.2 % Neutrophils # (Auto) 12.23 K/uL (1.4-6.5) Lymphocytes # (Auto) 0.79 K/uL (1.2-3.4) Monocytes # (Auto) 0.72 K/uL (0.11-0.59) Eosinophils # (Auto) 0.09 K/uL (0-0.5) Basophils # (Auto) 0.03 K/uL (0-0.2) RDW Standard Deviation 51.2 fL (36.4-46.3) RDW Coefficient of Variation 15.4 % (11.5-14.5) Immature Granulocyte % (Auto) 1.7 % Immature Granulocyte # (Auto) 0.24 K/uL (0.00-0.02) Red Blood Cell Morphology Unremarkable Anion Gap 9.0 mmol/L (3-11) Est Creatinine Clear Calc Drug Dose 9.6 ml/min Estimated GFR () 13.8 Estimated GFR (Non- 11.9 BUN/Creatinine Ratio 20.5 (10-20) Calcium Level 8.3 mg/dl (8.5-10.1) Phosphorus Level 6.8 mg/dl (2.5-4.9) Magnesium Level 1.9 mg/dl (1.8-2.4) Total Bilirubin 0.3 mg/dl (0.2-1) Direct Bilirubin < 0.1 mg/dl (0-0.2) Aspartate Amino Transf (AST/SGOT) 13 U/L (15-37) Alanine Aminotransferase (ALT/SGPT) 22 U/L (12-78) Alkaline Phosphatase 68 U/L (45-117) Ammonia 10.0 umol/L (11-32) Total Creatine Kinase 29 U/L (26-192) Creatine Kinase MB 6.0 ng/ml (0.5-3.6) Creatine Kinase MB Ratio 20.7 (0-3.0) Troponin I < 0.015 ng/ml (0-0.045) Total Protein 5.6 gm/dl (6.4-8.2) Albumin 1.5 gm/dl (3.4-5.0) Random Vancomycin Level 12.8 mcg/ml Allergies Coded Allergies: Penicillins (Verified Allergy, Intermediate, hives, 06/23/16) Medications Current Inpatient Medications Medications (Trade) Dose Ordered Sig/[place] Route Start Time Stop Time Status Last Admin Dose Admin Ondansetron HCl (Zofran Inj) 4 mg Q6H PRN IV 06/23/16 18:30 07/23/16 18:29 06/30/16 09:50 4 MG Atenolol (Tenormin Tab) 100 mg DAILY PO 06/24/16 09:00 07/24/16 08:59 Future Hold 06/25/16 10:06 100 MG Albuterol/ Ipratropium (Duoneb) 3 ml QIDR INH 06/23/16 20:00 07/23/16 19:59 07/01/16 08:03 3 ML Levofloxacin (Consult) 1 ea UD PRN N/A 06/23/16 21:30 07/23/16 21:29 Diltiazem HCl (TIAzac CAP) 180 mg DAILY PO 06/24/16 10:00 07/24/16 09:59 Future Hold 06/25/16 10:06 180 MG Saccharomyces Boulardii (Florastor Cap) 250 mg DAILY PO 06/25/16 09:00 07/25/16 08:59 06/28/16 08:38 250 MG Enteral Nutritional Formula (Boost Breeze Nutritional Drink) 1 box AC PO 06/24/16 17:15 07/24/16 17:14 06/30/16 12:15 1 BOX Megestrol Acetate (Megace Susp) 400 mg QAM PO 06/26/16 11:30 07/26/16 11:29 06/30/16 09:08 400 MG Nystatin 5 ml 5 ml QID PO 06/26/16 13:00 07/06/16 12:59 06/30/16 20:13 5 ML Dextrose/Sodium Chloride (D5W And Nss) 1,000 ml @ 50 mls/hr Q20H IV 06/27/16 10:00 07/27/16 09:59 Future Hold 06/28/16 06:04 50 MLS/HR Acetaminophen (Tylenol Soln) 1,000 mg Q8 PO 06/28/16 10:45 07/28/16 10:44 06/30/16 22:27 1,000 MG Miscellaneous (Remove Lidoderm Patch) 1 ea DAILY@21 N/A 06/28/16 21:00 07/28/16 20:59 06/30/16 20:12 1 EA Calcium Carbonate (Tums Chew Tab) 500 mg AC PRN PO 06/28/16 12:00 07/28/16 11:59 Calcitriol (Rocaltrol Cap) 0.25 mcg MoWeFr@0900 PO 06/29/16 09:00 07/29/16 08:59 06/29/16 13:01 0.25 MCG Vitamin B Complex/ Vit C/Folic Acid (Nephrocaps) 1 cap QAM PO 06/30/16 09:00 07/30/16 08:59 06/30/16 09:10 1 CAP Multivitamins Therapeutic (Cerovite Liquid) 15 ml QAM PO 06/30/16 12:00 07/30/16 11:59 06/30/16 12:15 15 ML Guaifenesin (Robitussin Sugar Free Syrup) 100 mg Q4H PO 06/30/16 14:00 07/30/16 13:59 06/30/16 22:26 100 MG Lidocaine (Lidoderm Patch 5%) 2 patch DAILY@0900 TD 07/01/16 09:00 07/31/16 08:59 Vancomycin HCl (Consult) 1 ea UD PRN N/A 06/30/16 16:15 07/30/16 16:14 Hydrocortisone (Hydrocortisone 2.5% Crm) 1 appln Q4H PRN EXT 06/30/16 16:45 07/30/16 16:44 06/30/16 17:47 1 APPLN Hydromorphone HCl 0.5 mg 0.5 mg Q4H PRN IV 06/30/16 16:45 07/14/16 16:44 07/01/16 01:19 0.5 MG Pantoprazole Sodium/Syringe (Protonix Inj/ Syringe) 10 ml @ 5 mls/min DAILY@11 IV 07/01/16 11:00 07/31/16 10:59 Impression (1) Acute kidney injury (2) Stage 4 chronic kidney disease (3) Anemia (4) Empyema lung (5) Pneumonia Sherrie is a 89-year-old female with past medical history significant for stage 4 chronic kidney disease baseline creatinine 2-2.5, hypertension, admitted to the hospital with pneumonia and empyema. Had chest tube placed, currently on aztreonam and levofloxacin. Has baseline stage 4 chronic kidney disease, baseline creatinine 2-2.5, unclear etiology for chronic kidney disease, could be secondary to nephro toxicity from long-term NSAID use, hypertensive nephropathy or prior history of acute kidney injury with non recovery. On admission her creatinine was 2.4 which has worsened over few days and pt has been oliguric. No history of diabetes or coronary artery disease. Renal ultrasound low shows bilateral atrophic kidney with marked echogenicity. History of NSAID use for years but stopped using more than a year ago. No history of autoimmune disorder. No family history of chronic kidney disease. Nonsmoker. Started on hemodialysis via a femoral catheter on 06/29/2016. First day she had no one hour and 30 minutes dialysis, tolerated well. Second day she was started on dialysis however at 1.5 hour her blood pressure dropped and she became unresponsive and dialysis was stopped. Recommendations -- discussed in detail again with patient and her daughters and patient continued to mention that she wants to live and continue on dialysis. -- Will schedule for 1 hour 30 minutes dialysis again today as family's wishes. -- protective left upper extremity -- Okay to use Lasix as needed -- continue on Tums 1 tablet with each meal, calcitriol 0.25 microgram p.o. 3 times weekly and she received epogen 21474 units subcu x1 dose yesterday. -- continue on low-potassium diet Will follow
--- NOTE | 2016-07-01 14:18 | Hospitalist Progress Note ---
Hospitalist Progress Note Date of Service Jul 01, 2016. Subjective Pt evaluation today including: conversation w/ patient, conversation w/ family Straight cathed for 500 mL last night. Feels better today than yesterday. Tells me "dialysis was horrible...i felt like I was whirling around and around." When asked if she would want to continue, she starts to shake her head "no" but then daughter says that pt wants to do everything possible to keep going. Constitutional: No fever Respiratory: No shortness of breath Cardiovascular: No chest pain Abdomen: + problem reported (mild distension), No pain All Other Systems: Reviewed and Negative Objective Vital Signs Date Time Temp Pulse Resp B/P Pulse Ox O2 Delivery O2 Flow Rate FiO2 07/01/16 12:44 36.4 88 16 112/65 100 Nasal Cannula 2.0 07/01/16 12:00 99 Nasal Cannula 4.0 07/01/16 11:21 73 18 97 Nasal Cannula 4.0 07/01/16 08:03 73 18 98 Nasal Cannula 4.0 07/01/16 08:00 99 Nasal Cannula 4.0 07/01/16 07:55 36.4 71 20 92/51 99 4.0 07/01/16 04:01 36.2 80 20 117/63 99 Nasal Cannula 4.0 07/01/16 04:00 Nasal Cannula 4.0 07/01/16 00:00 Nasal Cannula 4.0 06/30/16 23:56 36.3 74 16 103/67 100 Nasal Cannula 4.0 06/30/16 20:00 Nasal Cannula 4.0 06/30/16 19:23 36.3 70 20 105/66 100 Nasal Cannula 4.0 06/30/16 19:15 78 20 99 Nasal Cannula 4.0 06/30/16 16:00 Nasal Cannula 4.0 06/30/16 15:51 78 18 98 Nasal Cannula 4.0 06/30/16 15:47 36.0 69 20 110/64 100 Nasal Cannula 5.0 06/30/16 14:58 68 16 102/67 100 Nasal Cannula 4.0 06/30/16 14:40 36.2 67 98/55 06/30/16 14:35 71 98/54 06/30/16 14:30 65 100/61 06/30/16 14:15 68 96/57 06/30/16 14:00 69 100/54 Physical Exam General Appearance: no apparent distress, + thin Eyes: normal inspection, sclerae normal ENT: hearing grossly normal Neck: trachea midline Respiratory/Chest: no respiratory distress, no accessory muscle use, + decreased breath sounds (at right base) Cardiovascular: regular rate, rhythm, no edema, no murmur Abdomen: normal bowel sounds, non tender, soft (with mild distension) Neurologic/Psychiatric: no motor/sensory deficits, alert, normal mood/affect Skin: no rash Laboratory Results Last 24 Hours Test 06/30/16 15:10 06/30/16 19:06 06/30/16 19:22 07/01/16 05:15 White Blood Count 11.57 K/uL 14.10 K/uL Red Blood Count 2.39 M/uL 2.78 M/uL Hemoglobin 7.1 g/dL 7.8 g/dL 8.2 g/dL Hematocrit 22.1 % 24.6 % 25.6 % Mean Corpuscular Volume 92.5 fL 92.1 fL Mean Corpuscular Hemoglobin 29.7 pg 29.5 pg Mean Corpuscular Hemoglobin Concent 32.1 g/dl 32.0 g/dl RDW Standard Deviation 52.4 fL 51.2 fL RDW Coefficient of Variation 15.7 % 15.4 % Platelet Count 285 K/uL 355 K/uL Mean Platelet Volume 9.1 fL 9.5 fL Sodium Level 141 mmol/L 139 mmol/L Potassium Level 3.7 mmol/L 4.0 mmol/L Chloride Level 108 mmol/L 104 mmol/L Carbon Dioxide Level 25 mmol/L 26 mmol/L Anion Gap 8.0 mmol/L 9.0 mmol/L Blood Urea Nitrogen 61 mg/dl 68 mg/dl Creatinine 2.70 mg/dl 3.30 mg/dl Est Creatinine Clear Calc Drug Dose 11.7 ml/min 9.6 ml/min Estimated GFR () 17.5 13.8 Estimated GFR (Non- 15.1 11.9 BUN/Creatinine Ratio 22.5 20.5 Random Glucose 93 mg/dl 79 mg/dl Calcium Level 7.6 mg/dl 8.3 mg/dl Creatine Kinase MB Ratio 20.7 Creatine Kinase MB 6.1 ng/ml 6.0 ng/ml Troponin I < 0.015 ng/ml < 0.015 ng/ml Neutrophils (%) (Auto) 86.8 % Lymphocytes (%) (Auto) 5.6 % Monocytes (%) (Auto) 5.1 % Eosinophils (%) (Auto) 0.6 % Basophils (%) (Auto) 0.2 % Neutrophils # (Auto) 12.23 K/uL Lymphocytes # (Auto) 0.79 K/uL Monocytes # (Auto) 0.72 K/uL Eosinophils # (Auto) 0.09 K/uL Basophils # (Auto) 0.03 K/uL Immature Granulocyte % (Auto) 1.7 % Immature Granulocyte # (Auto) 0.24 K/uL Red Blood Cell Morphology Unremarkable Phosphorus Level 6.8 mg/dl Magnesium Level 1.9 mg/dl Total Bilirubin 0.3 mg/dl Direct Bilirubin < 0.1 mg/dl Aspartate Amino Transf (AST/SGOT) 13 U/L Alanine Aminotransferase (ALT/SGPT) 22 U/L Alkaline Phosphatase 68 U/L Ammonia 10.0 umol/L Total Creatine Kinase 29 U/L Total Protein 5.6 gm/dl Albumin 1.5 gm/dl Random Vancomycin Level 12.8 mcg/ml Assessment and Plan 89yo female admitted on 06/23/2016 because of acute hypoxic and now hypercarbic respiratory failure, was on BiPAP, and has suffered worsening renal function now requiring hemodialysis. acute hypoxic and hypercarbic respiratory failure, slightly improved now and weaned off of BiPAP to nasal cannula after 1 round of hemodialysis as well as treatment for her empyema 2nd to multifocal community-acquired pneumonia, right-sided empyema, and now metabolic acidosis from her acute renal failure. -Continue to support with supplemental oxygen but patient has chosen to not be mechanically ventilated Right-sided empyema and right-sided pneumonia - 2nd to strep indeterminus. Repeat pleural fluid cultures are now without any growth s/p chest tube placement (pleurX) and drainage with instillation of TPA. Received 8 days of aztreonam & levaquin however better strep coverage would be with vancomycin as sensitivities to Levaquin were not performed and aztreonam does not typically cover for strep. Rocephin would be best that she has a penicillin allergy so we'll hold off on that. Will need PROLONGED course of abx IV/PO. -continue vancomycin -chest tube management to CT surgery-discussed with thoracic surgery and will continue with Pleurx catheter in place Mixed metabolic & respiratory acidosis - portends very poor prognosis. 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 Although patient is not a good candidate for dialysis and dialysis catheter, and possible no benefit from the dialysis for life quality and life expectancy, patient and family wanted to continue for the need of dialysis. Given her episode of syncope during dialysis which was likely due to hypotension, she will not likely be able to continue with dialysis. Nephrology discussed this with the family and patient and they still want to proceed again with HD today. Troponin and ECGs for syncope all negative/stable-likely due to hypotension -continuing HD as per Nephro -Vascular to place TIJ possibly Wednesday Anemia - suspect due to anemia of chronic kidney disease as well as blood draws , etc. but also with Hemoccult positive stool, has hemorrhoids H/H down to 7.1 which was probably a lab error and repeat was 7.8--> 8.2 In light of worsening status, if Hb <8, would need transfusion but would only tolerate such if hemodialysis is initiated. Will not transfuse today due to this. -Follow CBC -received Epogen per Nephro hypotension - ongoing/intermittent. HOLDing all home BP meds. Suspect multifactorial. Possible sepsis 2nd to empyema-resolved Metabolic encephalopathy - due to worsening hypercarbia, uremia, etc. -resolved DVT proph - heparin. diarrhea - c diff neg x 2. Abx-associated. Cont probiotics. thrush - nystatin QID. Improved. anorexia -secondary to renal failure and empyema. Discussed with daughters were very concerned that patient is not eating much -Continue Megace CODE STATUS is Level III, okay with CPR and shock and DO NOT INTUBATE Disposition-overall guarded prognosis. Discussed with all daughters and patient today. We'll continue ongoing discussion with patient and family.
[2016-07-01] MEDS: CALCIUM CARBONATE 500 MG CHEWABLE PO SCH (16:48)
--- NOTE | 2016-07-01 16:54 | Pharmacy Progress Note ---
Pharmacy Antibiotic Prog Note Date of Service Jul 01, 2016. Subjective The patient is currently receiving vancomycin IV as pulse doses. The patient is currently on day # 2 of vancomycin IV therapy. Objective Height (Feet): 5 Height (Inches): 4.00 Weight (Kilograms): 51.500 Levels: Item Value Date Time Random Vancomycin Level 12.8 mcg/ml 07/01/16 0515 Lab Results (24hrs): Laboratory Tests Test 07/01/16 05:15 BUN/Creatinine Ratio 20.5 Blood Urea Nitrogen 68 mg/dl Creatinine 3.30 mg/dl White Blood Count 14.10 K/uL Red Blood Count 2.78 M/uL Hemoglobin 8.2 g/dL Hematocrit 25.6 % Mean Corpuscular Volume 92.1 fL Mean Corpuscular Hemoglobin 29.5 pg Mean Corpuscular Hemoglobin Concent 32.0 g/dl Platelet Count 355 K/uL Mean Platelet Volume 9.5 fL Neutrophils (%) (Auto) 86.8 % Lymphocytes (%) (Auto) 5.6 % Monocytes (%) (Auto) 5.1 % Eosinophils (%) (Auto) 0.6 % Basophils (%) (Auto) 0.2 % Neutrophils # (Auto) 12.23 K/uL Lymphocytes # (Auto) 0.79 K/uL Monocytes # (Auto) 0.72 K/uL Eosinophils # (Auto) 0.09 K/uL Basophils # (Auto) 0.03 K/uL Micro Results: RUN DATE: 06/29/16 [facility] LAB PAGE 1 RUN TIME: 1229 Specimen Inquiry PATIENT: TANISHA GAMA LOC: [facility] U # : [id number] AGE/SX: 89/F ROOM: [facility] REG : 06/23/[address]: Zach Humphreys MD, PhD : [id number] BED: 1 DIS : STATUS: ADM IN TLOC: SPEC #: [id number] LAMAR: 06/24/16 STATUS: COMP REQ #: [id number] RECD: 06/24/[address] [facility] [address]: Kwaku Dennison PA SOURCE: PLEURAL FL ENTR: 06/24/[address]: Joe Murphy M.D. SPDESC: Pramod Thompson D.O. Whitlark, Joseph D., MD ORDERED: AER/NESTOR CULTSMR COMMENTS: Specimen Comment Tube #2 Has Specimen Been Obtained/Collected? Y Procedure Result Verified Site GRAM STAIN Final 06/24/16 RESULT MANY POLYS MANY GRAM POSITIVE COCCI OR AER/NESTOR CULT Final 06/29/16 Organism 1 STREPTOCOCCUS INTERMEDIUS QUANITY MANY SENS NO SENSITIVITY TO FOLLOW Recent Pertinent Medications Levaquin 500mg IV q 48h x 7 days Azactam IV 1gm IV q8 x 7 days. Assessment & Plan Vancomycin dosing: Vancomycin 1gm IV X 1 given 06/30 @ 1700. Vancomycin random level this AM = 12.8mcg/ml. Will redose vancomycin 1gm IV X 1 today and follow with repeat random level tomorrow AM. This will guide us to further dosing. Will repeat randoms as necessary and redose after HD or when below below desired trough range. Goal trough level estimate: between 15 - 20 mcg/mL. Peak and trough or random level has been ordered for: 07/02 w/ AM labs. Pharmacy will continue to follow and will adjust dose/frequency as necessary. Thank you
[2016-07-01] MEDS ORDERED: VANCOMYCIN INJ 1,000 MG in SODIUM CHLORIDE 0.9% 250ML 250 ML IV SCH (17:00)
[2016-07-01] MEDS ORDERED: LORAZEPAM 0.5 MG TAB ONE (18:28)
[2016-07-01] MEDS: ACETAMINOPHEN SOLN 160 MG/5 ML BTL PO SCH (21:19)
[2016-07-02] VITALS (22 sets, daily range): BP systolic 94–131; BP diastolic 50–74; PULSE 58–91; TEMP 35–36.5; O2SAT 94–100
[2016-07-02] MEDS: LORAZEPAM 0.5 MG TAB PO PRN ×2 (00:15→17:55)
[2016-07-02] MEDS: GUAIFENESIN SUGAR FREE 100 MG/5 ML UDC PO SCH ×5 (05:43→21:51)
[2016-07-02] MEDS: ACETAMINOPHEN SOLN 160 MG/5 ML BTL PO SCH ×4 (05:44→21:52)
[2016-07-02 07:23] LABS: HEMATOCRIT 23.8 % (37-47); MEAN CELL VOLUME 92.6 fL (80-100); MEAN CORPUSCULAR HGB CONC 32.4 g/dl (32-36); PLATELET COUNT 368 K/uL (130-400); RED BLOOD COUNT 2.57 M/uL (4.2-5.4); WHITE BLOOD COUNT 13.93 K/uL (4.8-10.8)
[2016-07-02 07:36] LABS: BUN/CREATININE RATIO 22.7 (10-20); CALCIUM 8.5 mg/dl (8.5-10.1); CREATININE 3.4 mg/dl (0.60-1.20); MAGNESIUM 1.8 mg/dl (1.8-2.4); PHOSPHORUS 6.5 mg/dl (2.5-4.9); POTASSIUM 4.1 mmol/L (3.5-5.1)
[2016-07-02] MEDS: ALBUT/IPRATROP 3MG/0.5MG NEB 3 ML VIAL INH SCH ×4 (07:49→19:12)
[2016-07-02] MEDS: CALCIUM CARBONATE 500 MG CHEWABLE PO SCH ×3 (09:04→16:25)
[2016-07-02] MEDS: SACCHAROMYCES BOUL (FLORASTOR) 250 MG CAP PO SCH (09:05)
[2016-07-02] MEDS: MULTIVITAMINS W/MINERALS 15ML UDP PO SCH (09:05)
[2016-07-02] MEDS: MEGESTROL ACETATE SUSP 400 MG/10 ML UDC PO SCH (09:06)
[2016-07-02] MEDS: NEPHROCAPS PO SCH (09:08)
[2016-07-02] MEDS: LIDODERM (LIDOCAINE) PATCH 5% TD SCH (09:10)
[2016-07-02] MEDS: BOOST BREEZE NUTRITION DRINK 1 BOX PO SCH ×3 (09:11→16:26)
[2016-07-02] MEDS: NYSTATIN SUSP 500,000 U/5 ML UDC PO SCH ×4 (09:11→21:53)
--- NOTE | 2016-07-02 09:11 | Surgery Progress Note ---
Subjective Date of Service: Jul 02, 2016. Pt. notes feeling tired. Discussed with daughter--pt. not sleeping much hospital. Objective Vitals Date Time Temp Pulse Resp B/P Pulse Ox O2 Delivery O2 Flow Rate FiO2 07/02/16 07:49 77 18 95 Nasal Cannula 2.0 07/02/16 07:47 35.4 78 18 128/73 99 2.0 07/02/16 04:33 78 18 131/74 94 Nasal Cannula 07/02/16 04:20 Nasal Cannula 2.0 07/02/16 00:17 36.5 72 20 113/70 99 07/02/16 00:15 Nasal Cannula 2.0 07/01/16 20:00 Nasal Cannula 2.0 07/01/16 19:36 65 18 106/59 99 Nasal Cannula 2.0 07/01/16 19:34 72 18 95 Nasal Cannula 2.0 07/01/16 16:00 99 Nasal Cannula 4.0 07/01/16 15:44 36.2 77 15 116/68 99 Nasal Cannula 2.0 07/01/16 15:35 77 18 99 Nasal Cannula 2.0 07/01/16 12:44 36.4 88 16 112/65 100 Nasal Cannula 2.0 07/01/16 12:00 99 Nasal Cannula 4.0 07/01/16 11:21 73 18 97 Nasal Cannula 4.0 Physical Exam General: No distress CV: + RRR Pulmonary: + rhonchi (noted bilaterally ), No accessory muscle use, No respiratory distress Drains / Tubes pleurex (right sided; drained for 75 cc this am ) Assessment & Plan 89 year old female with empyema -pleurex placed on (06/24/16) -MIST II protocol completed on (06/26/16) -repeat CT Scan performed om (06/26/16)---small amount of residual fluid noted; parenchymal infiltrates noted -serial CXR have demonstrated 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 as ordered by primary service -JESUS noted; nephrology following: -dialysis has been initiated -family updated at bedside today
--- NOTE | 2016-07-02 10:52 | Pharmacy Progress Note ---
Pharmacy Antibiotic Prog Note Date of Service Jul 02, 2016. Subjective The patient is currently receiving vancomycin dosed based upon levels for empyema The patient is currently on day # 3 of IV therapy. Objective Height (Feet): 5 Height (Inches): 4.00 Weight (Kilograms): 50.300 Levels: Item Value Date Time Random Vancomycin Level 15.6 mcg/ml 07/02/16 0620 Random Vancomycin Level 12.8 mcg/ml 07/01/16 0515 Lab Results (24hrs): Laboratory Tests Test 07/02/16 06:20 BUN/Creatinine Ratio 22.7 Blood Urea Nitrogen 77 mg/dl Creatinine 3.40 mg/dl White Blood Count 13.93 K/uL Assessment & Plan Patient on vancomycin for empyema infection. Previously on aztreonam and levaquin prior. Vancomycin: * Random level this am was ~15.6 mcg/ml (goal 15-20 mcg/ml for PNA/empyema) * Plan for dialysis uncertain, dialysis cancelled last evening, last dialysis was 06/30 * Will redose with vancomycin 750 mg (~15 mg/kg) x 1 to maintain trough ~15-20 mcg/ml * Will order a random level in the am to assist with further dosing Pharmacy will continue to follow and will adjust dose/frequency as necessary. Thank you
--- NOTE | 2016-07-02 10:52 | Nephrology Progress Note ---
Nephrology Progress Note Date of Service Jul 02, 2016. Chief Complaint Follow-up for acute kidney injury with history of advanced chronic kidney disease. Mimi Balderas Was seen and examined in her room this morning with her daughters at bedside. She is still pretty lethargic but easily wake up and answer question appropriately. P.o. intake remains poor. blood pressure seems to be slightly better. She was reported to have urine output but serum no clear measurement available as she does have Mills catheter she is incontinent. Creatinine remained somewhat stable to 3.4 this morning, potassium normal. Denies any shortness of breath or any further episode of chest pain. Review of Systems A complete review of systems was performed. Pertinent positives are noted above. All other systems are negative. Vital Signs Last 8 Hrs Date Time Temp Pulse Resp B/P Pulse Ox O2 Delivery O2 Flow Rate FiO2 07/02/16 07:49 77 18 95 Nasal Cannula 2.0 07/02/16 07:47 35.4 78 18 128/73 99 2.0 07/02/16 04:33 78 18 131/74 94 Nasal Cannula 07/02/16 04:20 Nasal Cannula 2.0 07/02/16 00:17 36.5 72 20 113/70 99 07/02/16 00:15 Nasal Cannula 2.0 I & O 24-Hour Column 07/02/16 08:00 Intake Total 479 ml Output Total 75 ml Balance 404 ml Last Recorded Weight Weight (Kilograms): 50.300 Physical Exam GENERAL: Frail, elderly female, AAA x 3, ill-appearing, not in any distress. NECK: Supple, no JVD. RESPIRATORY: Normal breathing efforts, no accessory muscle use, CTA CARDIOVASCULAR: S1, S2 normal, rate rhythm regular. EXTREMITY: No lower extremity edema NEURO: speech fluent. PSYCHIATRY: Normal mood and judgment Family History FH: HTN (hypertension) FH: cancer FH: kidney disease Heart disease Social History Smoking Status: Former smoker Drug Use: none Marital Status: Occupation: retired Laboratory Results Past 24 Hours 07/02/16 06:20 07/02/16 06:20 Test 07/02/16 06:20 Red Blood Count 2.57 M/uL (4.2-5.4) Mean Corpuscular Volume 92.6 fL (80-100) Mean Corpuscular Hemoglobin 30.0 pg (25-34) Mean Corpuscular Hemoglobin Concent 32.4 g/dl (32-36) RDW Standard Deviation 53.1 fL (36.4-46.3) RDW Coefficient of Variation 16.0 % (11.5-14.5) Mean Platelet Volume 10.0 fL (7.4-10.4) Nucleated RBC Absolute Count (auto) 0.07 K/uL (0-0) Nucleated Red Blood Cells % 0.5 % Anion Gap 11.0 mmol/L (3-11) Est Creatinine Clear Calc Drug Dose 9.1 ml/min Estimated GFR () 13.3 Estimated GFR (Non- 11.4 BUN/Creatinine Ratio 22.7 (10-20) Calcium Level 8.5 mg/dl (8.5-10.1) Phosphorus Level 6.5 mg/dl (2.5-4.9) Magnesium Level 1.8 mg/dl (1.8-2.4) 25-Hydroxy Vitamin D Total 20.0 ng/ml (30-100) Random Vancomycin Level 15.6 mcg/ml Allergies Coded Allergies: Penicillins (Verified Allergy, Intermediate, hives, 06/23/16) Medications Current Inpatient Medications Medications (Trade) Dose Ordered Sig/[place] Route Start Time Stop Time Status Last Admin Dose Admin Ondansetron HCl (Zofran Inj) 4 mg Q6H PRN IV 06/23/16 18:30 07/23/16 18:29 06/30/16 09:50 4 MG Atenolol (Tenormin Tab) 100 mg DAILY PO 06/24/16 09:00 07/24/16 08:59 Future Hold 06/25/16 10:06 100 MG Albuterol/ Ipratropium (Duoneb) 3 ml QIDR INH 06/23/16 20:00 07/23/16 19:59 07/02/16 07:49 3 ML Diltiazem HCl (TIAzac CAP) 180 mg DAILY PO 06/24/16 10:00 07/24/16 09:59 Future Hold 06/25/16 10:06 180 MG Saccharomyces Boulardii (Florastor Cap) 250 mg DAILY PO 06/25/16 09:00 07/25/16 08:59 07/01/16 08:40 250 MG Enteral Nutritional Formula (Boost Breeze Nutritional Drink) 1 box AC PO 06/24/16 17:15 07/24/16 17:14 06/30/16 12:15 1 BOX Megestrol Acetate (Megace Susp) 400 mg QAM PO 06/26/16 11:30 07/26/16 11:29 07/01/16 08:42 400 MG Nystatin 5 ml 5 ml QID PO 06/26/16 13:00 07/06/16 12:59 07/01/16 21:18 5 ML Dextrose/Sodium Chloride (D5W And Nss) 1,000 ml @ 50 mls/hr Q20H IV 06/27/16 10:00 07/27/16 09:59 Future Hold 06/28/16 06:04 50 MLS/HR Miscellaneous (Remove Lidoderm Patch) 1 ea DAILY@21 N/A 06/28/16 21:00 07/28/16 20:59 07/01/16 21:20 1 EA Calcitriol (Rocaltrol Cap) 0.25 mcg MoWeFr@0900 PO 06/29/16 09:00 07/29/16 08:59 07/01/16 08:41 0.25 MCG Vitamin B Complex/ Vit C/Folic Acid (Nephrocaps) 1 cap QAM PO 06/30/16 09:00 07/30/16 08:59 07/01/16 08:41 1 CAP Multivitamins Therapeutic (Cerovite Liquid) 15 ml QAM PO 06/30/16 12:00 07/30/16 11:59 07/01/16 08:44 15 ML Guaifenesin (Robitussin Sugar Free Syrup) 100 mg Q4H PO 06/30/16 14:00 07/30/16 13:59 07/02/16 05:43 100 MG Lidocaine (Lidoderm Patch 5%) 2 patch DAILY@0900 TD 07/01/16 09:00 07/31/16 08:59 Vancomycin HCl (Consult) 1 ea UD PRN N/A 06/30/16 16:15 07/30/16 16:14 Hydrocortisone (Hydrocortisone 2.5% Crm) 1 appln Q4H PRN EXT 06/30/16 16:45 07/30/16 16:44 07/01/16 11:36 1 APPLN Hydromorphone HCl 0.5 mg 0.5 mg Q4H PRN IV 06/30/16 16:45 07/14/16 16:44 07/01/16 01:19 0.5 MG Pantoprazole Sodium/Syringe (Protonix Inj/ Syringe) 10 ml @ 5 mls/min DAILY@11 IV 07/01/16 11:00 07/31/16 10:59 07/01/16 11:19 5 MLS/MIN Acetaminophen (Tylenol Soln) 1,000 mg Q8 PO 07/01/16 22:00 07/31/16 21:59 07/02/16 05:44 1,000 MG Calcium Carbonate (Tums Chew Tab) 500 mg AC PO 07/01/16 16:15 07/31/16 16:14 07/01/16 16:48 500 MG Lorazepam (Ativan Tab) 0.5 mg Q6H PRN PO 07/01/16 18:15 07/31/16 18:14 07/02/16 00:15 0.5 MG Impression (1) Acute kidney injury (2) Stage 4 chronic kidney disease (3) Anemia (4) Empyema lung (5) Pneumonia Sherrie is a 89-year-old female with past medical history significant for stage 4 chronic kidney disease baseline creatinine 2-2.5, hypertension, admitted to the hospital with pneumonia and empyema. Had chest tube placed, currently on aztreonam and levofloxacin. Has baseline stage 4 chronic kidney disease, baseline creatinine 2-2.5, unclear etiology for chronic kidney disease, could be secondary to nephro toxicity from long-term NSAID use, hypertensive nephropathy or prior history of acute kidney injury with non recovery. On admission her creatinine was 2.4 which has worsened over few days and pt has been oliguric. No history of diabetes or coronary artery disease. Renal ultrasound low shows bilateral atrophic kidney with marked echogenicity. History of NSAID use for years but stopped using more than a year ago. No history of autoimmune disorder. No family history of chronic kidney disease. Nonsmoker. Started on hemodialysis via a femoral catheter on 06/29/2016. First day she had no one hour and 30 minutes dialysis, tolerated well. Second day she was started on dialysis however at 1.5 hour her blood pressure dropped and she became unresponsive and dialysis was stopped. Recommendations -- discussed in detail again with patient and her daughters and plan to hold off on dialysis today as creatinine remained stable, potassium normal and no clear sign of volume overload and seems to be having decent urine output. -- Will put a Mills catheter for accurate assessment of urine output -- scheduled for 1 unit of blood transfusion today as hemoglobin dropped to 7.8 -- she is scheduled to have the femoral line removed tomorrow and tentatively plan for tunnel dialysis catheter if urine output remains low or there is further worsening of renal function however, effect renal function otherwise remained stable up and decent urine output will hold off on tunnel catheter. -- Okay to use Lasix as needed -- continue on Tums 1 tablet with each meal, calcitriol 0.25 microgram p.o. 3 times weekly and she received epogen 23058 units subcu x1 dose yesterday. -- continue on low-potassium diet Will follow
[2016-07-02] MEDS: PANTOprazole INJ 40 MG in SYRINGE 0 ML IV SCH (11:05)
[2016-07-02 11:45] LABS: URINE APPEARANCE CLEAR (CLEAR); URINE BILIRUBIN NEG (NEG); URINE COLOR YELLOW; URINE NITRITE NEG (NEG); URINE SPECIFIC GRAVITY 1.021 (1.000-1.030); UROBILINOGEN NEG (NEG)
[2016-07-02 11:54] LABS: REVIEW REQ? NO
[2016-07-02 11:55] LABS: MANUAL MICROSCOPIC REQUIRED? NO
[2016-07-02] MEDS ORDERED: VANCOMYCIN INJ 750 MG in SODIUM CHLORIDE 0.9% 250ML 250 ML IV ONE ×2 (12:00→15:00)
--- NOTE | 2016-07-02 16:57 | Hospitalist Progress Note ---
Hospitalist Progress Note Date of Service Jul 02, 2016. Subjective Pt evaluation today including: conversation w/ patient, conversation w/ family Patient very drowsy today. Is hoping a blood transfusion will give her more energy All Other Systems: Reviewed and Negative Objective Vital Signs Date Time Temp Pulse Resp B/P Pulse Ox O2 Delivery O2 Flow Rate FiO2 07/02/16 16:18 72 18 94 Nasal Cannula 2.0 07/02/16 15:29 35.2 80 18 131/66 97 Nasal Cannula 2.0 07/02/16 14:30 35.4 66 18 124/72 98 07/02/16 13:30 35.2 70 18 99/55 97 07/02/16 13:00 35.2 71 20 98/59 97 2.0 07/02/16 12:30 35.0 64 20 96/55 97 2.0 07/02/16 12:15 35.3 68 18 96/58 97 2.0 07/02/16 12:00 35.4 68 20 94/50 96 07/02/16 12:00 Nasal Cannula 2.0 07/02/16 11:57 72 18 94 Nasal Cannula 2.0 07/02/16 11:45 35.4 58 20 97/58 100 2.0 07/02/16 11:25 65 20 117/73 100 Nasal Cannula 2.0 07/02/16 08:00 Nasal Cannula 2.0 07/02/16 07:49 77 18 95 Nasal Cannula 2.0 07/02/16 07:47 35.4 78 18 128/73 99 2.0 07/02/16 04:33 78 18 131/74 94 Nasal Cannula 07/02/16 04:20 Nasal Cannula 2.0 07/02/16 00:17 36.5 72 20 113/70 99 07/02/16 00:15 Nasal Cannula 2.0 07/01/16 20:00 Nasal Cannula 2.0 07/01/16 19:36 65 18 106/59 99 Nasal Cannula 2.0 07/01/16 19:34 72 18 95 Nasal Cannula 2.0 Physical Exam General Appearance: no apparent distress, + thin Eyes: normal inspection, sclerae normal Neck: trachea midline Respiratory/Chest: no respiratory distress, no accessory muscle use, + decreased breath sounds (at right base) Cardiovascular: regular rate, rhythm, no edema, no murmur Abdomen: normal bowel sounds, non tender, soft (but mildly distended) Extremities: no pedal edema, no calf tenderness Neurologic/Psychiatric: alert, normal mood/affect Skin: warm/dry, no rash, + pertinent finding (right Pleurx catheter in place with dressing in is clean dry and intact) Laboratory Results Last 24 Hours Test 07/02/16 00:00 07/02/16 06:20 Urine Color YELLOW Urine Appearance CLEAR Urine pH 5.0 Urine Specific [place] 1.021 Urine Protein NEG Urine Glucose (UA) NEG Urine Ketones NEG Urine Occult Blood NEG Urine Nitrite NEG Urine Bilirubin NEG Urine Urobilinogen NEG Urine Leukocyte Esterase NEG White Blood Count 13.93 K/uL Red Blood Count 2.57 M/uL Hemoglobin 7.7 g/dL Hematocrit 23.8 % Mean Corpuscular Volume 92.6 fL Mean Corpuscular Hemoglobin 30.0 pg Mean Corpuscular Hemoglobin Concent 32.4 g/dl RDW Standard Deviation 53.1 fL RDW Coefficient of Variation 16.0 % Platelet Count 368 K/uL Mean Platelet Volume 10.0 fL Nucleated RBC Absolute Count (auto) 0.07 K/uL Nucleated Red Blood Cells % 0.5 % Sodium Level 138 mmol/L Potassium Level 4.1 mmol/L Chloride Level 107 mmol/L Carbon Dioxide Level 20 mmol/L Anion Gap 11.0 mmol/L Blood Urea Nitrogen 77 mg/dl Creatinine 3.40 mg/dl Est Creatinine Clear Calc Drug Dose 9.1 ml/min Estimated GFR () 13.3 Estimated GFR (Non- 11.4 BUN/Creatinine Ratio 22.7 Random Glucose 90 mg/dl Calcium Level 8.5 mg/dl Phosphorus Level 6.5 mg/dl Magnesium Level 1.8 mg/dl 25-Hydroxy Vitamin D Total 20.0 ng/ml Random Vancomycin Level 15.6 mcg/ml Assessment and Plan 89yo female admitted on 06/23/2016 because of acute hypoxic and now hypercarbic respiratory failure secondary to empyema, was on BiPAP, and has suffered worsening renal function now requiring hemodialysis. Acute hypoxic and hypercarbic respiratory failure, improved now and weaned off of BiPAP to nasal cannula after 1 round of hemodialysis as well as treatment for her empyema. Multifocal community-acquired pneumonia, right-sided empyema, and metabolic acidosis from her acute renal failure. -Continue to support with supplemental oxygen but patient has chosen to not be mechanically ventilated Right-sided empyema and right-sided pneumonia - 2nd to Strep indeterminus. Repeat pleural fluid cultures are now without any growth s/p chest tube placement (pleurX) and drainage with instillation of MIST-2 protocol which is now completed Received 8 days of aztreonam & levaquin however better strep coverage would be with vancomycin as sensitivities to Levaquin were not performed and aztreonam does not typically cover for strep. Will need PROLONGED course of abx IV/PO. 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 Creatinine stable at 3.4, bicarbonate low today at 20. Nephrology following, received dialysis gently but had syncope during her second session and all fluid was returned to her and dialysis was aborted. She is not a good candidate for dialysis and dialysis catheter, and possible no benefit from the dialysis for life quality and life expectancy, however patient and family wanted to proceed with dialysis. Given her episode of syncope during dialysis which was likely due to hypotension, she will not likely be able to continue with dialysis. Nephrology discussed this with the family and patient as well. Hemodialysis will be attempted again when her blood pressure is improved -Continue Nephrocaps, Tums with meals for binder, calcitriol -continuing HD as per Nephro as tolerated -Vascular to place TIJ at some point but is up in the air now based on if she will be able to tolerate further dialysis Syncope during dialysis-Troponin and ECGs for syncope all negative/stable- likely due to hypotension Anemia - suspect due to anemia of chronic kidney disease as well as blood draws , etc. but also with Hemoccult positive stool, has hemorrhoids. Discussed possible GI blood loss other than hemorrhoids with daughter and patient-she is not a good candidate for any sort of endoscopy at this time. Will manage with PPI and blood transfusion. H/H down to 7.7 -Transfuse 1 unit PRBC -Follow CBC -received Epogen per Nephro -Stopped subcutaneous heparin Hypothermia-unclear reason other than overall poor condition, do not suspect worsening sepsis at this time. -Sahra hugger, warming blanket hypotension - ongoing/intermittent. May improve after blood transfusion HOLDing all home BP meds. Suspect multifactorial. Possible sepsis 2nd to empyema-resolved Metabolic encephalopathy -was due to worsening hypercarbia, uremia, etc. - resolved Diarrhea - c diff neg x 2. Abx-associated. Cont probiotics. -Resolved thrush - nystatin QID. Improved. Anorexia -secondary to renal failure and empyema. Discussed with daughters were very concerned that patient is not eating much. Slightly improved -Continue Megace DVT proph -stopped heparin SQ for anemia and Hemoccult positive stool -SCDs only CODE STATUS is Level III, okay with CPR and shock and DO NOT INTUBATE Disposition-overall guarded prognosis. Discussed with all daughters and patient today. We'll continue ongoing discussion with patient and family.
[2016-07-02] MEDS: SODIUM BICARBONATE 650 MG TAB PO SCH (21:51)
[2016-07-03] VITALS (11 sets, daily range): BP systolic 88–125; BP diastolic 54–75; PULSE 67–88; TEMP 35.4–36.7; O2SAT 96–99
[2016-07-03] MEDS: ALBUT/IPRATROP 3MG/0.5MG NEB 3 ML VIAL INH SCH ×5 (01:13→19:59)
[2016-07-03] MEDS: GUAIFENESIN SUGAR FREE 100 MG/5 ML UDC PO SCH ×6 (02:00→21:00)
[2016-07-03] MEDS: LORAZEPAM 0.5 MG TAB PO PRN (02:21)
[2016-07-03] MEDS: HYDROmorphone INJ 0.5 MG/0.5 ML SYR IV PRN (03:44)
[2016-07-03] MEDS: ACETAMINOPHEN SOLN 160 MG/5 ML BTL PO SCH ×3 (06:15→21:58)
[2016-07-03 06:57] LABS: BUN/CREATININE RATIO 21.1 (10-20); CALCIUM 9.1 mg/dl (8.5-10.1); CREATININE 3.8 mg/dl (0.60-1.20); MAGNESIUM 1.9 mg/dl (1.8-2.4); POTASSIUM 4.3 mmol/L (3.5-5.1)
[2016-07-03] MEDS: BOOST BREEZE NUTRITION DRINK 1 BOX PO SCH ×3 (07:00→16:15)
[2016-07-03 07:35] LABS: HEMATOCRIT 26.4 % (37-47); MEAN CELL VOLUME 88.9 fL (80-100); MEAN CORPUSCULAR HEMOGLOBIN 29.6 pg (25-34); MEAN CORPUSCULAR HGB CONC 33.3 g/dl (32-36); RED BLOOD COUNT 2.97 M/uL (4.2-5.4); WHITE BLOOD COUNT 18.03 K/uL (4.8-10.8)
[2016-07-03 07:36] LABS: COMPLETE YES; ECHINOCYTES 2+; EOSINOPHIL % 0.9 %; LYMPH ABS # 0.47 K/uL (1.2-3.4); LYMPHOCYTE % 2.6 %; META ABS # 0.47 K/uL (0-0); METAMYELOCYTE % 2.6 %; MYELOCYTE % 1.7 %; NEUTROPHILS % 92.2 %
[2016-07-03] MEDS: MULTIVITAMINS W/MINERALS 15ML UDP PO SCH (08:13)
[2016-07-03] MEDS: MEGESTROL ACETATE SUSP 400 MG/10 ML UDC PO SCH (08:14)
[2016-07-03] MEDS: NYSTATIN SUSP 500,000 U/5 ML UDC PO SCH ×4 (08:14→20:58)
[2016-07-03] MEDS: NEPHROCAPS PO SCH (08:15)
[2016-07-03] MEDS: LIDODERM (LIDOCAINE) PATCH 5% TD SCH (08:15)
[2016-07-03] MEDS: CALCITRIOL 0.25 MCG CAP PO SCH (08:15)
[2016-07-03] MEDS: SACCHAROMYCES BOUL (FLORASTOR) 250 MG CAP PO SCH (08:16)
[2016-07-03] MEDS: CALCIUM CARBONATE 500 MG CHEWABLE PO SCH ×3 (08:16→16:15)
[2016-07-03] MEDS: SODIUM BICARBONATE 650 MG TAB PO SCH ×2 (08:16→21:00)
--- NOTE | 2016-07-03 09:26 | Surgery Progress Note ---
Subjective Date of Service: Jul 03, 2016. Pt. offers no specific complaints. Discussed with family---most questions revolve around dialysis. Objective Vitals Date Time Temp Pulse Resp B/P Pulse Ox O2 Delivery O2 Flow Rate FiO2 07/03/16 08:00 Nasal Cannula 2.0 07/03/16 07:21 36.7 80 18 116/69 99 2.0 07/03/16 07:21 74 18 98 Nasal Cannula 2.0 07/03/16 04:00 96 Nasal Cannula 2.0 07/03/16 03:45 36.2 88 20 110/70 96 Nasal Cannula 2.0 07/03/16 01:13 87 18 97 Nasal Cannula 2.0 07/02/16 23:59 97 Nasal Cannula 2.0 07/02/16 23:41 35.9 91 18 111/68 97 Nasal Cannula 2.0 07/02/16 20:00 98 Nasal Cannula 2.0 07/02/16 19:53 35.8 78 18 115/66 98 Nasal Cannula 2.0 07/02/16 19:12 77 18 97 Nasal Cannula 2.0 07/02/16 16:50 35.4 07/02/16 16:18 72 18 94 Nasal Cannula 2.0 07/02/16 16:00 94 Room Air 07/02/16 15:29 35.2 80 18 131/66 97 Nasal Cannula 2.0 07/02/16 14:30 35.4 66 18 124/72 98 07/02/16 13:30 35.2 70 18 99/55 97 07/02/16 13:00 35.2 71 20 98/59 97 2.0 07/02/16 12:30 35.0 64 20 96/55 97 2.0 07/02/16 12:15 35.3 68 18 96/58 97 2.0 07/02/16 12:00 35.4 68 20 94/50 96 07/02/16 12:00 Nasal Cannula 2.0 07/02/16 11:57 72 18 94 Nasal Cannula 2.0 07/02/16 11:45 35.4 58 20 97/58 100 2.0 07/02/16 11:25 65 20 117/73 100 Nasal Cannula 2.0 Physical Exam General: No distress CV: + RRR Pulmonary: + pertinent finding (decreased at bases) Drains / Tubes pleurex (right sided, drained for 25 cc fluid today ) Assessment & Plan 89 year old female with empyema -pleurex placed on (06/24/16) -MIST II protocol completed on (06/26/16) -repeat CT Scan performed om (06/26/16)---small amount of residual fluid noted; parenchymal infiltrates noted -serial CXR have demonstrated 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 as ordered by primary service -JESUS noted; nephrology following: -dialysis has been initiated; further scheduling of dialysis as directed by nephrology service -family updated at bedside again today -discussed with primary service
[2016-07-03] MEDS ORDERED: FENTANYL CITRATE INJ 50 MCG/1 ML 2 ML VIAL IV PRN (09:30)
[2016-07-03] MEDS: PANTOprazole INJ 40 MG in SYRINGE 0 ML IV SCH (11:13)
--- NOTE | 2016-07-03 11:30 | Nephrology Progress Note ---
Nephrology Progress Note Date of Service Jul 03, 2016. Chief Complaint Follow-up for acute kidney injury with history of advanced chronic kidney disease. Mimi Balderas was seen and examined in her room this morning with her daughter who is at bedside. She continues to be lethargic, restless. She complains of a back pain but denies shortness of breath or chest pain. blood pressure has been stable, made around 450 mL of urine in last 24 hours, creatinine continues to worsen 3.8 this morning, acidosis worsened to bicarbonate 18. Review of Systems A complete review of systems was performed. Pertinent positives are noted above. All other systems are negative. Vital Signs Last 8 Hrs Date Time Temp Pulse Resp B/P Pulse Ox O2 Delivery O2 Flow Rate FiO2 07/03/16 08:00 Nasal Cannula 2.0 07/03/16 07:21 36.7 80 18 116/69 99 2.0 07/03/16 07:21 74 18 98 Nasal Cannula 2.0 07/03/16 04:00 96 Nasal Cannula 2.0 07/03/16 03:45 36.2 88 20 110/70 96 Nasal Cannula 2.0 I & O 24-Hour Column 07/03/16 07:59 Intake Total 1170 ml Output Total 575 ml Balance 595 ml Last Recorded Weight Weight (Kilograms): 50.300 Physical Exam GENERAL: Frail, elderly female, AAA x 3, ill-appearing, not in any distress. NECK: Supple, no JVD. RESPIRATORY: Normal breathing efforts, no accessory muscle use, CTA CARDIOVASCULAR: S1, S2 normal, rate rhythm regular. EXTREMITY: No lower extremity edema NEURO: speech fluent. PSYCHIATRY: Normal mood and judgment Family History FH: HTN (hypertension) FH: cancer FH: kidney disease Heart disease Social History Smoking Status: Former smoker Drug Use: none Marital Status: Occupation: retired Laboratory Results Past 24 Hours 07/03/16 05:39 Red Blood Count 2.97, Mean Corpuscular Volume 88.9, Mean Corpuscular Hemoglobin 29.6, Mean Corpuscular Hemoglobin Concent 33.3, Mean Platelet Volume 07/03/16 05:39 Test 07/03/16 05:39 White Blood Count 18.03 K/uL (4.8-10.8) Red Blood Count 2.97 M/uL (4.2-5.4) Hemoglobin 8.8 g/dL (12.0-16.0) Hematocrit 26.4 % (37-47) Mean Corpuscular Volume 88.9 fL (80-100) Mean Corpuscular Hemoglobin 29.6 pg (25-34) Mean Corpuscular Hemoglobin Concent 33.3 g/dl (32-36) Platelet Count K/uL (130-400) Mean Platelet Volume fL (7.4-10.4) RDW Standard Deviation 48.5 fL (36.4-46.3) RDW Coefficient of Variation 15.4 % (11.5-14.5) Nucleated RBC Absolute Count (auto) 0.12 K/uL (0-0) Neutrophils % (Manual) 92.2 % Lymphocytes % (Manual) 2.6 % Eosinophils % (Manual) 0.9 % Metamyelocytes % 2.6 % Myelocytes % 1.7 % Nucleated Red Blood Cells % 0.7 % Neutrophils # (Manual) 16.62 K/uL (1.4-6.5) Total Absolute Neutrophils 16.62 K/uL (1.4-6.5) Lymphocytes # (Manual) 0.47 K/uL (1.2-3.4) Total Absolute Lymphocytes 0.47 K/uL (1.2-3.4) Eosinophils # (Manual) 0.16 K/uL (0-0.5) Metamyelocytes # 0.47 K/uL (0-0) Myelocytes # 0.31 K/uL (0-0) Echinocytes 2+ Anion Gap 14.0 mmol/L (3-11) Est Creatinine Clear Calc Drug Dose 8.1 ml/min Estimated GFR () 11.6 Estimated GFR (Non- 10.0 BUN/Creatinine Ratio 21.1 (10-20) Calcium Level 9.1 mg/dl (8.5-10.1) Magnesium Level 1.9 mg/dl (1.8-2.4) Random Vancomycin Level 21.0 mcg/ml Allergies Coded Allergies: Penicillins (Verified Allergy, Intermediate, hives, 06/23/16) Medications Current Inpatient Medications Medications (Trade) Dose Ordered Sig/[place] Route Start Time Stop Time Status Last Admin Dose Admin Ondansetron HCl (Zofran Inj) 4 mg Q6H PRN IV 06/23/16 18:30 07/23/16 18:29 06/30/16 09:50 4 MG Atenolol (Tenormin Tab) 100 mg DAILY PO 06/24/16 09:00 07/24/16 08:59 Future Hold 06/25/16 10:06 100 MG Albuterol/ Ipratropium (Duoneb) 3 ml QIDR INH 06/23/16 20:00 07/23/16 19:59 07/03/16 07:21 3 ML Diltiazem HCl (TIAzac CAP) 180 mg DAILY PO 06/24/16 10:00 07/24/16 09:59 Future Hold 06/25/16 10:06 180 MG Saccharomyces Boulardii (Florastor Cap) 250 mg DAILY PO 06/25/16 09:00 07/25/16 08:59 07/03/16 08:16 250 MG Enteral Nutritional Formula (Boost Breeze Nutritional Drink) 1 box AC PO 06/24/16 17:15 07/24/16 17:14 07/02/16 16:26 1 BOX Megestrol Acetate (Megace Susp) 400 mg QAM PO 06/26/16 11:30 07/26/16 11:29 07/03/16 08:14 400 MG Nystatin 5 ml 5 ml QID PO 06/26/16 13:00 07/06/16 12:59 07/03/16 08:14 5 ML Dextrose/Sodium Chloride (D5W And Nss) 1,000 ml @ 50 mls/hr Q20H IV 06/27/16 10:00 07/27/16 09:59 Future Hold 06/28/16 06:04 50 MLS/HR Miscellaneous (Remove Lidoderm Patch) 1 ea DAILY@21 N/A 06/28/16 21:00 07/28/16 20:59 07/02/16 20:54 1 EA Calcitriol (Rocaltrol Cap) 0.25 mcg MoWeFr@0900 PO 06/29/16 09:00 07/29/16 08:59 07/03/16 08:15 0.25 MCG Vitamin B Complex/ Vit C/Folic Acid (Nephrocaps) 1 cap QAM PO 06/30/16 09:00 07/30/16 08:59 07/03/16 08:15 1 CAP Multivitamins Therapeutic (Cerovite Liquid) 15 ml QAM PO 06/30/16 12:00 07/30/16 11:59 07/03/16 08:13 15 ML Guaifenesin (Robitussin Sugar Free Syrup) 100 mg Q4H PO 06/30/16 14:00 07/30/16 13:59 07/03/16 11:13 100 MG Lidocaine (Lidoderm Patch 5%) 2 patch DAILY@0900 TD 07/01/16 09:00 07/31/16 08:59 07/03/16 08:15 2 PATCH Vancomycin HCl (Consult) 1 ea UD PRN N/A 06/30/16 16:15 07/30/16 16:14 Hydrocortisone (Hydrocortisone 2.5% Crm) 1 appln Q4H PRN EXT 06/30/16 16:45 07/30/16 16:44 07/01/16 11:36 1 APPLN Hydromorphone HCl 0.5 mg 0.5 mg Q4H PRN IV 06/30/16 16:45 07/14/16 16:44 07/03/16 03:44 0.5 MG Pantoprazole Sodium/Syringe (Protonix Inj/ Syringe) 10 ml @ 5 mls/min DAILY@11 IV 07/01/16 11:00 07/31/16 10:59 07/03/16 11:13 5 MLS/MIN Acetaminophen (Tylenol Soln) 1,000 mg Q8 PO 07/01/16 22:00 07/31/16 21:59 07/03/16 06:15 1,000 MG Calcium Carbonate (Tums Chew Tab) 500 mg AC PO 07/01/16 16:15 07/31/16 16:14 07/03/16 11:14 500 MG Lorazepam (Ativan Tab) 0.5 mg Q6H PRN PO 07/01/16 18:15 07/31/16 18:14 07/03/16 02:21 0.5 MG Sodium Bicarbonate (Sodium Bicarbonate Tab) 325 mg BID PO 07/02/16 21:00 08/01/16 20:59 07/03/16 08:16 325 MG Fentanyl Citrate (Fentanyl Inj) 25 mcg Q2H PRN IV 07/03/16 09:30 07/17/16 09:29 07/03/16 11:13 25 MCG Lactulose (Chronulac Syrup) 15 gm DAILY PRN PO 07/03/16 09:45 08/02/16 09:44 Impression (1) Acute kidney injury (2) Stage 4 chronic kidney disease (3) Anemia (4) Empyema lung (5) Pneumonia Sherrie is a 89-year-old female with past medical history significant for stage 4 chronic kidney disease baseline creatinine 2-2.5, hypertension, admitted to the hospital with pneumonia and empyema. Had chest tube placed, currently on vancomycin. Has baseline stage 4 chronic kidney disease, baseline creatinine 2-2.5, unclear etiology for chronic kidney disease, could be secondary to nephrotoxicity from long-term NSAID use, hypertensive nephropathy or prior history of acute kidney injury with non recovery. On admission her creatinine was 2.4 which has worsened over few days and patient was oliguric, became acidotic. No history of diabetes or coronary artery disease. Renal ultrasound low shows bilateral atrophic kidney with marked echogenicity. History of NSAID use for years but stopped using more than a year ago. No history of autoimmune disorder. No family history of chronic kidney disease. Nonsmoker. Started on hemodialysis via a femoral catheter on 06/29/2016. First day she had 1:30 minutes dialysis, tolerated well. Second day she was started on dialysis however at 1.5 hour her blood pressure dropped and she became unresponsive and dialysis was stopped. since then she has been off of dialysis. her urine output somewhat improved and she has been making around 4- 500 mL per day but renal function continues to worsen and her electrolyte abnormality worsen. Overall she has been lethargic, restless, was not able to participate in physical therapy or get out of bed. Discussed in detail many times with her 3 daughters and the patient pros and cons of dialysis versus conservative approach and recommended conservative management however patient made the decision to continue on dialysis. Recommendations --again had long discussion this morning with patient, her 3 daughters. Patient again expressed that she would like to do dialysis however does not seem like she is 100 percent sure about her choices and she lives she is letting her daughter Beryl to make the decision who is her power of patent prosecution attorney. -- explained that as her renal function worsening, we should make a definitive decision about definitive management going forward, either she will continue dialysis in that case we will have to place a tunnel dialysis catheter this afternoon. Other, may be the better option would be not to consider dialysis and just continue with conservative approach and consider home hospice care. -- palliative Care will come and discuss with the patient and family to help them we in decision-making process -- she is scheduled to have the femoral line removed tomorrow and tentatively plan for tunnel dialysis catheter -- increase sodium bicarb to 650 milligram twice a day -- continue on Tums 1 tablet with each meal, calcitriol 0.25 microgram p.o. 3 times weekly and she received epogen [id number] units subcu x1 dose yesterday. -- continue on low-potassium diet Will follow
--- NOTE | 2016-07-03 11:35 | Palliative Care Consultation ---
Consultation Date of Consultation: Jul 03, 2016. Requesting Physician: Dr. Garsia Attending Physician: Dr. Garsia Reason for Consultation: Goals of care History of Present Illness This 89 year old female patient presented to the ED 10 days ago with c/o failed outpatient antibiotic treatment for pneumonia. Back in April, patient was found to have pneumonia, was placed on 3 separate antibiotics and still was not improving so she was sent here. CXR showed advanced emphysema, right sided pleural effusion with infiltrate. Creatinine was 2.4 (her baseline), WBC 14k. She was admitted to telemetry and started on IV abx. Her kidney function has worsened and she became oliguric. Right femoral dialysis catheter was placed. Dialysis was given twice. During the second time, blood pressure dropped and patient went unresponsive but never lost pulse and did not stop breathing. She' s also been seen by Dr. Davis while here, had a Pleur-X catheter placed for empyema. the patient has had an overall decline in condition since admission and really has not improved in 10 days. the family and patient are torn between having a perm cath placed and attempting dialysis again, and just making the patient comfortable with a more conservative approach and taking her home with hospice. Palliative care consulted to assist with goals of care. I met with the patient and her three daughters, Beryl SCHWARZ), Nya, and Hannah in room 235. Patient is very drowsy and not able to stay awake for conversation- - frequently falling asleep. She did seem to be hearing the entire conversation though, as when she did wake up she'd repeat the things we were discussing. Daughters did most of the talking. They are very torn about having a perm cath placed and continuing dialysis-- as their mother always said she wouldn't want that but she is now saying she "wants to live." This has been very difficult for the patient and family to wrap their heads around because the patient is normally independent and has done so well at 89 years old. She still lives at home and was caring for her until a week ago when he was moved to [facility]. They do not want their mother to suffer and they know she wants to be at home. After a very lengthy discussion, the family and patient decided to not have dialysis catheter placed, no more dialysis, and to take the patient home on hospice when medically ready for discharge. For now, they'd like to continue current treatment for a few days and see if her condition improves at all. Either way, they will take the patient home with hospice and 24 -hour assisted care at home. We discussed pain medication options. they are okay with patient being drowsy from pain medications, but would like to have her awake as possible with good pain relief. Goal is for comfort but also with [facility] care with medications. Past Medical/Surgical History Medical History: Arthritis CKD Htn Bronchitis Ovarian cyst rupture Right hip replacement Right knee surgery Social History Smoking Status: Former Smoker History of Alcohol Use: Yes (OCCASIONAL WINE 1/2 GLASS/DAY) Drug Use: none Marital Status: Occupation Status: retired Review of Systems Constitutional: + fatigue, + weakness Respiratory: + cough, + dyspnea on exertion, No wheezing Cardiac: No chest pain Abdomen: + diarrhea (resolving), No nausea, No pain, No vomiting Female : No problem reported Psychiatric: + problem reported (not sleeping well at night since being in the hospital) Allergies Coded Allergies: Penicillins (Verified Allergy, Intermediate, hives, 06/23/16) Medications Current Inpatient Medications Medications (Trade) Dose Ordered Sig/Lavonne Route Start Time Stop Time Status Last Admin Dose Admin Ondansetron HCl (Zofran Inj) 4 mg Q6H PRN IV 06/23/16 18:30 07/23/16 18:29 06/30/16 09:50 4 MG Atenolol (Tenormin Tab) 100 mg DAILY PO 06/24/16 09:00 07/24/16 08:59 Future Hold 06/25/16 10:06 100 MG Albuterol/ Ipratropium (Duoneb) 3 ml QIDR INH 06/23/16 20:00 07/23/16 19:59 07/03/16 07:21 3 ML Diltiazem HCl (TIAzac CAP) 180 mg DAILY PO 06/24/16 10:00 07/24/16 09:59 Future Hold 06/25/16 10:06 180 MG Saccharomyces Boulardii (Florastor Cap) 250 mg DAILY PO 06/25/16 09:00 07/25/16 08:59 07/03/16 08:16 250 MG Enteral Nutritional Formula (Boost Breeze Nutritional Drink) 1 box AC PO 06/24/16 17:15 07/24/16 17:14 07/02/16 16:26 1 BOX Megestrol Acetate (Megace Susp) 400 mg QAM PO 06/26/16 11:30 07/26/16 11:29 07/03/16 08:14 400 MG Nystatin 5 ml 5 ml QID PO 06/26/16 13:00 07/06/16 12:59 07/03/16 08:14 5 ML Dextrose/Sodium Chloride (D5W And Nss) 1,000 ml @ 50 mls/hr Q20H IV 06/27/16 10:00 07/27/16 09:59 Future Hold 06/28/16 06:04 50 MLS/HR Miscellaneous (Remove Lidoderm Patch) 1 ea DAILY@21 N/A 06/28/16 21:00 07/28/16 20:59 07/02/16 20:54 1 EA Calcitriol (Rocaltrol Cap) 0.25 mcg MoWeFr@0900 PO 06/29/16 09:00 07/29/16 08:59 07/03/16 08:15 0.25 MCG Vitamin B Complex/ Vit C/Folic Acid (Nephrocaps) 1 cap QAM PO 06/30/16 09:00 07/30/16 08:59 07/03/16 08:15 1 CAP Multivitamins Therapeutic (Cerovite Liquid) 15 ml QAM PO 06/30/16 12:00 07/30/16 11:59 07/03/16 08:13 15 ML Guaifenesin (Robitussin Sugar Free Syrup) 100 mg Q4H PO 06/30/16 14:00 07/30/16 13:59 07/03/16 06:15 100 MG Lidocaine (Lidoderm Patch 5%) 2 patch DAILY@0900 TD 07/01/16 09:00 07/31/16 08:59 07/03/16 08:15 2 PATCH Vancomycin HCl (Consult) 1 ea UD PRN N/A 06/30/16 16:15 07/30/16 16:14 Hydrocortisone (Hydrocortisone 2.5% Crm) 1 appln Q4H PRN EXT 06/30/16 16:45 07/30/16 16:44 07/01/16 11:36 1 APPLN Hydromorphone HCl 0.5 mg 0.5 mg Q4H PRN IV 06/30/16 16:45 07/14/16 16:44 07/03/16 03:44 0.5 MG Pantoprazole Sodium/Syringe (Protonix Inj/ Syringe) 10 ml @ 5 mls/min DAILY@11 IV 07/01/16 11:00 07/31/16 10:59 07/02/16 11:05 5 MLS/MIN Acetaminophen (Tylenol Soln) 1,000 mg Q8 PO 07/01/16 22:00 07/31/16 21:59 07/03/16 06:15 1,000 MG Calcium Carbonate (Tums Chew Tab) 500 mg AC PO 07/01/16 16:15 07/31/16 16:14 07/03/16 08:16 500 MG Lorazepam (Ativan Tab) 0.5 mg Q6H PRN PO 07/01/16 18:15 07/31/16 18:14 07/03/16 02:21 0.5 MG Sodium Bicarbonate (Sodium Bicarbonate Tab) 325 mg BID PO 07/02/16 21:00 08/01/16 20:59 07/03/16 08:16 325 MG Fentanyl Citrate (Fentanyl Inj) 25 mcg Q2H PRN IV 07/03/16 09:30 07/17/16 09:29 Lactulose (Chronulac Syrup) 15 gm DAILY PRN PO 07/03/16 09:45 08/02/16 09:44 Physical Exam Date Time Temp Pulse Resp B/P Pulse Ox O2 Delivery O2 Flow Rate FiO2 07/03/16 08:00 Nasal Cannula 2.0 07/03/16 07:21 36.7 80 18 116/69 99 2.0 07/03/16 07:21 74 18 98 Nasal Cannula 2.0 07/03/16 04:00 96 Nasal Cannula 2.0 07/03/16 03:45 36.2 88 20 110/70 96 Nasal Cannula 2.0 07/03/16 01:13 87 18 97 Nasal Cannula 2.0 07/02/16 23:59 97 Nasal Cannula 2.0 07/02/16 23:41 35.9 91 18 111/68 97 Nasal Cannula 2.0 07/02/16 20:00 98 Nasal Cannula 2.0 07/02/16 19:53 35.8 78 18 115/66 98 Nasal Cannula 2.0 07/02/16 19:12 77 18 97 Nasal Cannula 2.0 07/02/16 16:50 35.4 07/02/16 16:18 72 18 94 Nasal Cannula 2.0 07/02/16 16:00 94 Room Air 07/02/16 15:29 35.2 80 18 131/66 97 Nasal Cannula 2.0 07/02/16 14:30 35.4 66 18 124/72 98 07/02/16 13:30 35.2 70 18 99/55 97 07/02/16 13:00 35.2 71 20 98/59 97 2.0 07/02/16 12:30 35.0 64 20 96/55 97 2.0 07/02/16 12:15 35.3 68 18 96/58 97 2.0 07/02/16 12:00 35.4 68 20 94/50 96 07/02/16 12:00 Nasal Cannula 2.0 07/02/16 11:57 72 18 94 Nasal Cannula 2.0 07/02/16 11:45 35.4 58 20 97/58 100 2.0 07/02/16 11:25 65 20 117/73 100 Nasal Cannula 2.0 General Appearance: no apparent distress ENT: hearing grossly normal Neck: supple Respiratory: no respiratory distress, no accessory muscle use, + pertinent finding (2LNC) Cardiovascular: regular rate, rhythm, no edema Abdomen: non tender, soft Musculoskeletal: pertinent finding (deconditioned) Neurologic/Psychiatric: + pertinent finding (drowsy/falling asleep but is oriented) Skin: + pertinent finding (fragile with scattered scabs and ecchymosis) Laboratory Results Last 24 Hours Test 07/03/16 05:39 White Blood Count 18.03 K/uL Red Blood Count 2.97 M/uL Hemoglobin 8.8 g/dL Hematocrit 26.4 % Mean Corpuscular Volume 88.9 fL Mean Corpuscular Hemoglobin 29.6 pg Mean Corpuscular Hemoglobin Concent 33.3 g/dl Platelet Count K/uL Mean Platelet Volume fL RDW Standard Deviation 48.5 fL RDW Coefficient of Variation 15.4 % Nucleated RBC Absolute Count (auto) 0.12 K/uL Neutrophils % (Manual) 92.2 % Lymphocytes % (Manual) 2.6 % Eosinophils % (Manual) 0.9 % Metamyelocytes % 2.6 % Myelocytes % 1.7 % Nucleated Red Blood Cells % 0.7 % Neutrophils # (Manual) 16.62 K/uL Total Absolute Neutrophils 16.62 K/uL Lymphocytes # (Manual) 0.47 K/uL Total Absolute Lymphocytes 0.47 K/uL Eosinophils # (Manual) 0.16 K/uL Metamyelocytes # 0.47 K/uL Myelocytes # 0.31 K/uL Echinocytes 2+ Sodium Level 137 mmol/L Potassium Level 4.3 mmol/L Chloride Level 106 mmol/L Carbon Dioxide Level 17 mmol/L Anion Gap 14.0 mmol/L Blood Urea Nitrogen 80 mg/dl Creatinine 3.80 mg/dl Est Creatinine Clear Calc Drug Dose 8.1 ml/min Estimated GFR () 11.6 Estimated GFR (Non- 10.0 BUN/Creatinine Ratio 21.1 Random Glucose 69 mg/dl Calcium Level 9.1 mg/dl Magnesium Level 1.9 mg/dl Random Vancomycin Level 21.0 mcg/ml Assessment & Plan Problem list: Weakness Lethargy/drowsiness Pain, right side at Pleur-X site Right sided pneumonia Right empyema/pleural effusion- Pleur-X catheter for drainage Acute renal failure Hypothermia Hypotension- resolved today Goals of care (Z51.5) Palliative care recs: -Will need Dr. Davis's orders for discharge for Pleur-X care -Transition to PO antibiotics from IV on discharge, preferably a crushable or liquid form -Keep IVF minimal as possible -?Start diuretic therapy for fluid management now that patient is not receiving dialysis but is still making urine. Will defer that to nephrology and primary medical -Discontinue IV pain medications -Start fentanyl 12mcg/hr TD patch Q72h -Start Roxanol 2.5mg PO Q3h PRN pain or SOB. This dose can be increased, but starting conservatively due to renal disease and her current sedation -Change lorazepam to sublingual as patient is having trouble swallowing pills -No further dialysis -Discontinue femoral dialysis catheter. Hoping patient can get OOB if she wakes up more -Home with hospice. Family has chosen [facility]. Also will have 24-hour caregivers
[2016-07-03] MEDS ORDERED: NURSING VERBAL MED ORDER ONE (11:45)
[2016-07-03] MEDS ORDERED: FENTANYL 12 MCG/HR TDSY TD SCH (12:00)
[2016-07-03] MEDS ORDERED: SODIUM CHLORIDE 0.9% 1000ML 1,000 ML IV SCH (13:00)
[2016-07-03] MEDS: DEXTROSE 5% 1000ML 1,000 ML IV SCH (14:21)
[2016-07-03] MEDS: LACTULOSE SYRUP 10 GM/15 ML BTL 473 ML PO PRN (15:46)
[2016-07-03] MEDS: CHECK FENTANYL PATCH PLACEMENT SCH ×2 (16:00→23:22)
--- NOTE | 2016-07-03 16:29 | Pharmacy Progress Note ---
Pharmacy Antibiotic Prog Note Date of Service Jul 03, 2016. Subjective The patient is currently receiving Vancomycin IV one time doses base on random levels The patient is currently on day # 11 of Vancomycin IV therapy. Objective Height (Feet): 5 Height (Inches): 4.00 Weight (Kilograms): 50.300 Levels: Item Value Date Time Random Vancomycin Level 21.0 mcg/ml 07/03/16 0539 Lab Results (24hrs): Assessment & Plan 89yo female receiving IV Vancomycin for Right-sided empyema and right-sided pneumonia - 2nd to Strep indeterminus. Pt has been receiving HD, therefore, vancomycin dosing has been per HD recommendations. Vancomycin is being dosed after HD when pre-HD level in goal trough range. Pt and family have decided to stop HD, perm cath placement DC, pt to DC home with hospice. VANCOMYCIN: * Continue Vancomycin per Hospitalist * Vancomycin random level this morning was slightly supra-therapeutic at 21mcg/ ml * Since pt is not receiving HD vancomycin clearance will be reduced * No vancomycin today * Re-check random vancomycin level in estimated T1/2 (~24hrs). Random level ordered for 07/04 w/ AM labs * Re-dose IV Vancomycin when random level in goal trough range * Goal trough level estimate: between 15 - 20 mcg/mL. Pharmacy will continue to follow and will adjust dose/frequency as necessary. Thank you
[2016-07-03] MEDS: HYDROCORTISONE 2.5% CR 30 GM TUBE EXT PRN (16:58)
--- NOTE | 2016-07-03 22:20 | Hospitalist Progress Note ---
Hospitalist Progress Note Date of Service Jul 03, 2016. Subjective Pt evaluation today including: conversation w/ patient, conversation w/ family Pt in a lot of pain in her right side of back, very tired. Daughters report she is "suffering" and they are all unsure if they should continue with trying dialysis or go towards comfort measures. Constitutional: No fever Respiratory: + shortness of breath Cardiovascular: No chest pain Abdomen: No constipation Musculoskeletal: + problem reported (back pain) All Other Systems: Reviewed and Negative Objective Vital Signs Date Time Temp Pulse Resp B/P Pulse Ox O2 Delivery O2 Flow Rate FiO2 07/03/16 20:00 Nasal Cannula 2.0 07/03/16 19:41 73 16 119/71 99 Nasal Cannula 2.0 07/03/16 19:15 70 20 96 Nasal Cannula 2.0 07/03/16 16:08 35.6 70 16 88/54 97 Nasal Cannula 2.0 07/03/16 16:05 67 20 96 Nasal Cannula 2.0 07/03/16 16:00 Nasal Cannula 2.0 07/03/16 12:00 Nasal Cannula 2.0 07/03/16 11:45 35.4 68 16 103/62 98 2.0 07/03/16 11:17 68 18 98 Nasal Cannula 2.0 07/03/16 08:00 Nasal Cannula 2.0 07/03/16 07:21 36.7 80 18 116/69 99 2.0 07/03/16 07:21 74 18 98 Nasal Cannula 2.0 07/03/16 04:00 96 Nasal Cannula 2.0 07/03/16 03:45 36.2 88 20 110/70 96 Nasal Cannula 2.0 07/03/16 01:13 87 18 97 Nasal Cannula 2.0 07/02/16 23:59 97 Nasal Cannula 2.0 07/02/16 23:41 35.9 91 18 111/68 97 Nasal Cannula 2.0 Physical Exam General Appearance: + mild distress, + thin Eyes: sclerae normal ENT: hearing grossly normal Neck: trachea midline Respiratory/Chest: no respiratory distress, no accessory muscle use, + decreased breath sounds (at right base, crackles at left base) Cardiovascular: regular rate, rhythm, no edema, no murmur Abdomen: normal bowel sounds, non tender, soft (but mildly distended) Extremities: non-tender, no pedal edema Neurologic/Psychiatric: + pertinent finding (drowsy, answers some questions) Skin: normal color, warm/dry Laboratory Results Last 24 Hours Test 07/03/16 05:39 White Blood Count 18.03 K/uL Red Blood Count 2.97 M/uL Hemoglobin 8.8 g/dL Hematocrit 26.4 % Mean Corpuscular Volume 88.9 fL Mean Corpuscular Hemoglobin 29.6 pg Mean Corpuscular Hemoglobin Concent 33.3 g/dl Platelet Count K/uL Mean Platelet Volume fL RDW Standard Deviation 48.5 fL RDW Coefficient of Variation 15.4 % Nucleated RBC Absolute Count (auto) 0.12 K/uL Neutrophils % (Manual) 92.2 % Lymphocytes % (Manual) 2.6 % Eosinophils % (Manual) 0.9 % Metamyelocytes % 2.6 % Myelocytes % 1.7 % Nucleated Red Blood Cells % 0.7 % Neutrophils # (Manual) 16.62 K/uL Total Absolute Neutrophils 16.62 K/uL Lymphocytes # (Manual) 0.47 K/uL Total Absolute Lymphocytes 0.47 K/uL Eosinophils # (Manual) 0.16 K/uL Metamyelocytes # 0.47 K/uL Myelocytes # 0.31 K/uL Echinocytes 2+ Sodium Level 137 mmol/L Potassium Level 4.3 mmol/L Chloride Level 106 mmol/L Carbon Dioxide Level 17 mmol/L Anion Gap 14.0 mmol/L Blood Urea Nitrogen 80 mg/dl Creatinine 3.80 mg/dl Est Creatinine Clear Calc Drug Dose 8.1 ml/min Estimated GFR () 11.6 Estimated GFR (Non- 10.0 BUN/Creatinine Ratio 21.1 Random Glucose 69 mg/dl Calcium Level 9.1 mg/dl Magnesium Level 1.9 mg/dl Random Vancomycin Level 21.0 mcg/ml Assessment and Plan 89yo female admitted on 06/23/2016 because of acute hypoxic and now hypercarbic respiratory failure secondary to empyema, was on BiPAP, and has suffered worsening renal function now requiring hemodialysis. Acute hypoxic and hypercarbic respiratory failure, improved now and weaned off of BiPAP to nasal cannula after 1 round of hemodialysis as well as treatment for her empyema. Multifocal community-acquired pneumonia, right-sided empyema, and metabolic acidosis from her acute renal failure. -Continue to support with supplemental oxygen but patient has chosen to not be mechanically ventilated -now moving towards Hospice and comfort care -Fentanyl patch and Roxanol prn SOB,pain Right-sided empyema and right-sided pneumonia - 2nd to Strep indeterminus. Repeat pleural fluid cultures are now without any growth s/p chest tube placement (pleurX) and drainage with instillation of MIST-2 protocol which is now completed Received 8 days of aztreonam & levaquin however better strep coverage would be with vancomycin as sensitivities to Levaquin were not performed and aztreonam does not typically cover for strep. Will need PROLONGED course of abx IV/PO. 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 Peak creatinine 4.7, acidosis in ABG pH 7.25. Could not tolerate HD after two attempts due to hypotension and made her feel "horrible.". Creatinine rising again, bicarbonate low today at 17. Nephrology following, Numerous conversations made with pt and family, then with Palliative Care--> pt and family now agree to not have HD for improved life quality and due to poor life expectancy. -Continue Nephrocaps, Tums with meals for binder, calcitriol as tolerated, continue NaHCO3 tabs -continuing HD as per Nephro as tolerated -remove femoral catheter -continue Mills catheter Syncope during dialysis-Troponin and ECGs for syncope all negative/stable- likely due to hypotension Anemia - suspect due to anemia of chronic kidney disease as well as blood draws , etc. but also with Hemoccult positive stool, has hemorrhoids. Discussed possible GI blood loss other than hemorrhoids with daughter and patient-she is not a good candidate for any sort of endoscopy at this time. Will manage with PPI and blood transfusion. H/H down to 7.7 -Transfused 1 unit PRBC this admission -Follow CBC but now moving towards Hospice so will not transfuse again -received Epogen per Nephro -Stopped subcutaneous heparin Hypothermia-unclear reason other than overall poor condition, do not suspect worsening sepsis at this time--> improved -Sahra shaw, warming blanket-pt declined hypotension - ongoing/intermittent. May improve after blood transfusion HOLDing all home BP meds. Suspect multifactorial. Possible sepsis 2nd to empyema-resolved Metabolic encephalopathy -was due to worsening hypercarbia, uremia, etc. - resolved Diarrhea - c diff neg x 2. Abx-associated. Cont probiotics. -Resolved thrush - nystatin QID. Improved. Anorexia -secondary to renal failure and empyema. Discussed with daughters were very concerned that patient is not eating much. This is secondary to acute illness and renal failure/uremia -Continue Megace but consider stopping now as is moving towards comfort measures DVT proph -stopped heparin SQ for anemia and Hemoccult positive stool -SCDs only CODE STATUS is Level III, okay with CPR and shock and DO NOT INTUBATE Disposition-overall guarded prognosis. Discussed with all daughters and patient today. Now making arrangements for Hospice
[2016-07-04] VITALS (7 sets, daily range): BP systolic 84–107; BP diastolic 46–68; PULSE 73–88; TEMP 35.1–36.6; O2SAT 94–99
[2016-07-04] MEDS: ALBUT/IPRATROP 3MG/0.5MG NEB 3 ML VIAL INH SCH ×5 (00:51→18:52)
[2016-07-04] MEDS: GUAIFENESIN SUGAR FREE 100 MG/5 ML UDC PO SCH ×6 (02:00→22:00)
[2016-07-04] MEDS: LORAZEPAM 0.5 MG TAB SL PRN ×2 (02:31→22:14)
[2016-07-04] MEDS: ACETAMINOPHEN SOLN 160 MG/5 ML BTL PO SCH ×3 (05:15→22:03)
[2016-07-04 06:35] LABS: BUN/CREATININE RATIO 20.9 (10-20); CALCIUM 9.2 mg/dl (8.5-10.1); CREATININE 4.3 mg/dl (0.60-1.20); POTASSIUM 4.2 mmol/L (3.5-5.1)
[2016-07-04] MEDS: BOOST BREEZE NUTRITION DRINK 1 BOX PO SCH ×3 (07:00→17:28)
--- NOTE | 2016-07-04 07:30 | Surgery Progress Note ---
Subjective Date of Service: Jul 04, 2016. Pt. resting in bed. She is noted to be confused and cannot offer any meaningful conversation. Objective Vitals Date Time Temp Pulse Resp B/P Pulse Ox O2 Delivery O2 Flow Rate FiO2 07/04/16 04:00 35.3 81 16 107/68 99 Nasal Cannula 07/04/16 04:00 Nasal Cannula 2.0 07/04/16 00:51 88 20 96 Nasal Cannula 2.0 07/04/16 00:00 Nasal Cannula 2.0 07/03/16 23:58 35.6 84 16 125/75 98 07/03/16 20:00 Nasal Cannula 2.0 07/03/16 19:41 73 16 119/71 99 Nasal Cannula 2.0 07/03/16 19:15 70 20 96 Nasal Cannula 2.0 07/03/16 16:08 35.6 70 16 88/54 97 Nasal Cannula 2.0 07/03/16 16:05 67 20 96 Nasal Cannula 2.0 07/03/16 16:00 Nasal Cannula 2.0 07/03/16 12:00 Nasal Cannula 2.0 07/03/16 11:45 35.4 68 16 103/62 98 2.0 07/03/16 11:17 68 18 98 Nasal Cannula 2.0 07/03/16 08:00 Nasal Cannula 2.0 Physical Exam General: No distress CV: + RRR Pulmonary: + pertinent finding (rhonchi previously noted have decreased), No respiratory distress Drains / Tubes pleurex (right sided drained for 25 cc this am ) Assessment & Plan 89 year old female with empyema -pleurex placed on (06/24/16) -MIST II protocol completed on (06/26/16) -repeat CT Scan performed om (06/26/16)---small amount of residual fluid noted; parenchymal infiltrates noted -serial CXR have demonstrated 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 as ordered by primary service -JESUS noted; nephrology following: -family updated at bedside again today -discussed with primary service --it is noted that plans for hospice are in place
[2016-07-04] MEDS: CALCIUM CARBONATE 500 MG CHEWABLE PO SCH ×3 (08:20→17:20)
[2016-07-04] MEDS: CHECK FENTANYL PATCH PLACEMENT SCH ×2 (08:21→15:37)
[2016-07-04] MEDS: NEPHROCAPS PO SCH (08:21)
[2016-07-04] MEDS: MEGESTROL ACETATE SUSP 400 MG/10 ML UDC PO SCH (08:21)
[2016-07-04] MEDS: SODIUM BICARBONATE 650 MG TAB PO SCH ×2 (08:21→22:17)
[2016-07-04] MEDS: NYSTATIN SUSP 500,000 U/5 ML UDC PO SCH ×4 (08:22→22:17)
[2016-07-04] MEDS: SACCHAROMYCES BOUL (FLORASTOR) 250 MG CAP PO SCH (08:22)
[2016-07-04] MEDS: LIDODERM (LIDOCAINE) PATCH 5% TD SCH (08:23)
[2016-07-04] MEDS: MULTIVITAMINS W/MINERALS 15ML UDP PO SCH (08:57)
[2016-07-04] MEDS: HYDROCORTISONE 2.5% CR 30 GM TUBE EXT PRN (09:00)
--- NOTE | 2016-07-04 09:51 | Pharmacy Progress Note ---
Pharmacy Antibiotic Prog Note Date of Service Jul 04, 2016. Subjective The patient is currently receiving vancomycin dosed based upon levels The patient is currently on day # 5 of IV therapy. Objective Height (Feet): 5 Height (Inches): 4.00 Weight (Kilograms): 53.700 Levels: Item Value Date Time Random Vancomycin Level 17.4 mcg/ml 07/04/16 0553 Random Vancomycin Level 21.0 mcg/ml 07/03/16 0539 Random Vancomycin Level 15.6 mcg/ml 07/02/16 0620 Random Vancomycin Level 12.8 mcg/ml 07/01/16 0515 Lab Results (24hrs): Laboratory Tests Test 07/04/16 05:53 BUN/Creatinine Ratio 20.9 Blood Urea Nitrogen 90 mg/dl Creatinine 4.30 mg/dl Assessment & Plan Patient receiving vancomycin for empyema infection. Per notes, pt and family have decided to stop HD ; plan is to continue vancomycin per hospitalist Vancomycin: * Random level this am was therapeutic at ~17 mcg/ml (goal 15-20 mcg/ml for PNA) * Will redose with vancomycin 500 mg iv x 1 today to maintain an estimated peak of ~30 mcg/ml * Scr continues to rise today, now at 4.30 mg/dL (urine output w/in last 24 hrs also declining) * Estimated t1/2>48 hrs, no need to reorder level until 07/06 if vancomycin is to be continued Pharmacy will continue to follow and will adjust dose/frequency as necessary. Thank you
[2016-07-04] MEDS: MoRPHine SULFATE 2.5 MG/0.125 ML UDP PO PRN ×2 (09:59→21:41)
[2016-07-04] MEDS: PANTOprazole INJ 40 MG in SYRINGE 0 ML IV SCH (10:00)
[2016-07-04] MEDS: LACTULOSE SYRUP 10 GM/15 ML BTL 473 ML PO PRN (10:43)
[2016-07-04] MEDS: DEXTROSE 5% 1000ML 1,000 ML IV SCH (11:25)
[2016-07-04] MEDS ORDERED: NURSING VERBAL MED ORDER ONE ×3 (12:00→22:30)
[2016-07-04] MEDS ORDERED: BISACODYL 10 MG SUPP ONE (12:21)
[2016-07-04] MEDS ORDERED: DOCUSATE SODIUM 100 MG CAP PO ONE (12:30)
[2016-07-04] MEDS ORDERED: BISACODYL 10 MG SUPP PR PRN (12:30)
--- NOTE | 2016-07-04 14:57 | Nephrology Progress Note ---
Nephrology Progress Note Date of Service Jul 04, 2016. Chief Complaint Acute renal failure Subjective Sherrie was seen and evaluated in her hospital room this morning. She was resting comfortably at that time. Appetite is poor. No fevers or chills. She remains very weak. She denied pain. I returned this afternoon to have a conversation with Sherrie's 3 daughters. Plan of care was discussed in detail. Review of Systems A complete review of systems was performed. Pertinent positives are noted above. All other systems are negative. Vital Signs Last 8 Hrs Date Time Temp Pulse Resp B/P Pulse Ox O2 Delivery O2 Flow Rate FiO2 07/04/16 12:00 Room Air 07/04/16 11:25 35.1 73 18 102/66 96 Room Air 07/04/16 11:24 74 20 98 Nasal Cannula 2.0 07/04/16 08:00 Room Air 07/04/16 07:44 36.6 78 16 95/62 94 07/04/16 07:25 75 20 95 Nasal Cannula 2.0 I & O 24-Hour Column 07/04/16 08:00 Intake Total 820 ml Output Total 75 ml Balance 745 ml Last Recorded Weight Weight (Kilograms): 53.700 Physical Exam General Appearance: + pertinent finding (Frail, elderly, no acute distress - mild discomfort) Head: normocephalic, atraumatic Eyes: sclerae normal, + pertinent finding (Pupils +1 BL) ENT: normal ENT inspection, + pertinent finding (oral mucosa slightly dry, no oral lesions) Neck: supple, + pertinent finding (JVP increased) Respiratory/Chest: no respiratory distress, no accessory muscle use, + decreased breath sounds Cardiovascular: regular rate, rhythm Abdomen/GI: + distended, + pertinent finding (tympanic, discomfort expressed to touch) Extremities/Musculoskelatal: + pedal edema, + pertinent finding (scattered ecchymosis) Neurologic/Psych: alert, + depressed affect Family History FH: HTN (hypertension) FH: cancer FH: kidney disease Heart disease Social History Smoking Status: Former smoker Drug Use: none Marital Status: Occupation: retired Laboratory Results Past 24 Hours 07/04/16 05:53 Test 07/04/16 05:53 Anion Gap 18.0 mmol/L (3-11) Est Creatinine Clear Calc Drug Dose 7.7 ml/min Estimated GFR () 10.0 Estimated GFR (Non- 8.6 BUN/Creatinine Ratio 20.9 (10-20) Calcium Level 9.2 mg/dl (8.5-10.1) Random Vancomycin Level 17.4 mcg/ml Allergies Coded Allergies: Penicillins (Verified Allergy, Intermediate, hives, 06/23/16) Medications Current Inpatient Medications Medications (Trade) Dose Ordered Sig/Lavonne Route Start Time Stop Time Status Last Admin Dose Admin Ondansetron HCl (Zofran Inj) 4 mg Q6H PRN IV 06/23/16 18:30 07/23/16 18:29 06/30/16 09:50 4 MG Atenolol (Tenormin Tab) 100 mg DAILY PO 06/24/16 09:00 07/24/16 08:59 Future Hold 06/25/16 10:06 100 MG Albuterol/ Ipratropium (Duoneb) 3 ml QIDR INH 06/23/16 20:00 07/23/16 19:59 07/04/16 11:21 3 ML Diltiazem HCl (TIAzac CAP) 180 mg DAILY PO 06/24/16 10:00 07/24/16 09:59 Future Hold 06/25/16 10:06 180 MG Saccharomyces Boulardii (Florastor Cap) 250 mg DAILY PO 06/25/16 09:00 07/25/16 08:59 07/04/16 08:22 250 MG Enteral Nutritional Formula (Boost Breeze Nutritional Drink) 1 box AC PO 06/24/16 17:15 07/24/16 17:14 07/02/16 16:26 1 BOX Megestrol Acetate (Megace Susp) 400 mg QAM PO 06/26/16 11:30 07/26/16 11:29 07/04/16 08:21 400 MG Nystatin (Mycostatin Susp) 5 ml QID PO 06/26/16 13:00 07/06/16 12:59 07/04/16 13:38 5 ML Miscellaneous (Remove Lidoderm Patch) 1 ea DAILY@21 N/A 06/28/16 21:00 07/28/16 20:59 07/03/16 20:58 1 EA Calcitriol (Rocaltrol Cap) 0.25 mcg MoWeFr@0900 PO 06/29/16 09:00 07/29/16 08:59 07/03/16 08:15 0.25 MCG Vitamin B Complex/ Vit C/Folic Acid (Nephrocaps) 1 cap QAM PO 06/30/16 09:00 07/30/16 08:59 07/04/16 08:21 1 CAP Multivitamins Therapeutic (Cerovite Liquid) 15 ml QAM PO 06/30/16 12:00 07/30/16 11:59 07/03/16 08:13 15 ML Guaifenesin (Robitussin Sugar Free Syrup) 100 mg Q4H PO 06/30/16 14:00 07/30/16 13:59 07/04/16 13:38 100 MG Lidocaine (Lidoderm Patch 5%) 2 patch DAILY@0900 TD 07/01/16 09:00 07/31/16 08:59 07/04/16 08:23 2 PATCH Hydrocortisone 1 appln 1 appln Q4H PRN EXT 06/30/16 16:45 07/30/16 16:44 07/04/16 09:00 1 APPLN Pantoprazole Sodium/Syringe (Protonix Inj/ Syringe) 10 ml @ 5 mls/min DAILY@11 IV 07/01/16 11:00 07/31/16 10:59 07/04/16 10:00 5 MLS/MIN Acetaminophen (Tylenol Soln) 1,000 mg Q8 PO 07/01/16 22:00 07/31/16 21:59 07/04/16 13:39 1,000 MG Calcium Carbonate (Tums Chew Tab) 500 mg AC PO 07/01/16 16:15 07/31/16 16:14 07/04/16 08:20 500 MG Lactulose (Chronulac Syrup) 15 gm DAILY PRN PO 07/03/16 09:45 08/02/16 09:44 07/04/16 10:43 15 GM Lorazepam (Ativan Tab) 0.5 mg Q6H PRN SL 07/03/16 12:15 07/31/16 18:14 07/04/16 02:31 0.5 MG Morphine Sulfate (Roxanol Oral Soln) 2.5 mg Q2H PRN PO 07/03/16 12:15 07/17/16 12:14 07/04/16 09:59 2.5 MG Fentanyl (Duragesic Patch) 12 mcg Q3D@1200 TD 07/03/16 12:00 07/17/16 11:59 07/03/16 12:52 12 MCG Miscellaneous (Fentanyl Patch Remove & Waste) 1 ea Q3D@1200 N/A 07/06/16 12:00 08/05/16 11:59 Miscellaneous Information (Check Fentanyl Patch Placement) 1 ea QS N/A 07/03/16 16:00 08/02/16 15:59 07/04/16 08:21 1 EA Sodium Bicarbonate (Sodium Bicarbonate Tab) 650 mg BID PO 07/03/16 21:00 08/02/16 20:59 07/04/16 08:21 650 MG Diphenhydramine HCl 25 mg 25 mg Q6H PRN PO 07/03/16 14:30 08/02/16 14:29 Dextrose (D5W 1000ml) 1,000 ml @ 50 mls/hr Q20H IV 07/03/16 14:30 08/02/16 14:29 07/04/16 11:25 50 MLS/HR Bisacodyl (Dulcolax Supp) 10 mg BID PRN ND 07/04/16 12:30 08/03/16 12:29 Docusate Sodium (coLACE CAP) 100 mg BID PO 07/04/16 21:00 08/03/16 20:59 Clindamycin Palmitate HCl (Cleocin Soln) 300 mg TID PO 07/04/16 15:00 07/11/16 14:59 Impression (1) Acute kidney injury (2) Stage 4 chronic kidney disease (3) Anemia (4) Empyema lung (5) Pneumonia Sherrie is a frail 89-year-old female with CKD IV (baseline creatinine 2-2.5) attributed to hypertensive nephropathy, senesce and atrophy. She was admitted to the hospital with pneumonia and empyema. This was complicated by acute renal failure. Dialysis was started via a femoral catheter on 06/29/2016. Unfortunately, she did not tolerate hemodialysis well and during her second treatment became acutely unresponsive. Clinically, she has continued to decline. After interval discussion with family regarding goals of care, decision was made to transition to palliative measures. Current plan is for home with hospice. Recommendations I spent approximately 45 minutes with the patient and her daughters today. This time was necessary for counseling and coordination of care. We reviewed the patient's clinical status in detail. We discussed palliative management of renal failure. We discussed the dying process. Thy asked for continued support while Sherrie remains hospitalized. Sodium bicarbonate increased to 1300 mg BID as tolerated.
[2016-07-04] MEDS ORDERED: VANCOMYCIN INJ 500 MG in SODIUM CHLORIDE 0.9% 250ML 250 ML IV ONE (15:00)
[2016-07-04] MEDS: CLINDAMYCIN PO SCH ×2 (15:44→20:00)
[2016-07-04] MEDS ORDERED: B-COCAP20 PO (16:58)
[2016-07-04] MEDS ORDERED: CLC100 PO (16:58)
[2016-07-04] MEDS ORDERED: CLCUDL150 PO (16:58)
[2016-07-04] MEDS ORDERED: TUMS PO (16:58)
[2016-07-04] MEDS ORDERED: [UNRECOGNIZED DRUG - CODE] PO (16:58)
[2016-07-04] MEDS ORDERED: ATV5 SL (16:58)
[2016-07-04] MEDS ORDERED: SODI650T9 PO (16:58)
[2016-07-04] MEDS ORDERED: DRGTP12 TD (16:58)
[2016-07-04] MEDS ORDERED: DLCS PR (16:58)
[2016-07-04] MEDS ORDERED: LCTS240 PO (16:58)
[2016-07-04] MEDS ORDERED: RCL25 PO (16:58)
[2016-07-04] MEDS ORDERED: BNDL2 PO (16:58)
[2016-07-04] MEDS ORDERED: LDDP5 TD (16:58)
[2016-07-04] MEDS ORDERED: RXNS2.5 PO (16:58)
[2016-07-04] MEDS ORDERED: HYDCR25 EXT (16:58)
--- NOTE | 2016-07-04 19:44 | Hospitalist Progress Note ---
Hospitalist Progress Note Date of Service Jul 04, 2016. Subjective Pt evaluation today including: conversation w/ patient, conversation w/ family Pt very frail today and sleeping most of the two times I came to see her and have discussions with the daughters at the bedside. She is c/o pain in her back and repeatedly asks her daughter to massage her back. Minimal UOP, renal function declining. Daughters agreeable to take her off tele and stop all lab draws, stop IV abx and transition to po abx. They would like to take her home with hospice tomorrow. Constitutional: + problem reported (hypothermia) All Other Systems: Reviewed and Negative Objective Vital Signs Date Time Temp Pulse Resp B/P Pulse Ox O2 Delivery O2 Flow Rate FiO2 07/04/16 16:00 73 12 84/46 96 Room Air 07/04/16 16:00 Room Air 07/04/16 12:00 Room Air 07/04/16 11:25 35.1 73 18 102/66 96 Room Air 07/04/16 11:24 74 20 98 Nasal Cannula 2.0 07/04/16 08:00 Room Air 07/04/16 07:44 36.6 78 16 95/62 94 07/04/16 07:25 75 20 95 Nasal Cannula 2.0 07/04/16 04:00 35.3 81 16 107/68 99 Nasal Cannula 07/04/16 04:00 Nasal Cannula 2.0 07/04/16 00:51 88 20 96 Nasal Cannula 2.0 07/04/16 00:00 Nasal Cannula 2.0 07/03/16 23:58 35.6 84 16 125/75 98 07/03/16 20:00 Nasal Cannula 2.0 07/03/16 19:41 73 16 119/71 99 Nasal Cannula 2.0 07/03/16 19:15 70 20 96 Nasal Cannula 2.0 Physical Exam General Appearance: + thin (frail, sleeping and asks for back to be rubbed) ENT: hearing grossly normal Respiratory/Chest: no respiratory distress, no accessory muscle use, + decreased breath sounds (at right base) Cardiovascular: regular rate, rhythm, no murmur Abdomen: non tender, soft (but mildly distended) Extremities: normal inspection, no pedal edema, no calf tenderness Skin: no rash Laboratory Results Last 24 Hours Test 07/04/16 05:53 Sodium Level 134 mmol/L Potassium Level 4.2 mmol/L Chloride Level 101 mmol/L Carbon Dioxide Level 15 mmol/L Anion Gap 18.0 mmol/L Blood Urea Nitrogen 90 mg/dl Creatinine 4.30 mg/dl Est Creatinine Clear Calc Drug Dose 7.7 ml/min Estimated GFR () 10.0 Estimated GFR (Non- 8.6 BUN/Creatinine Ratio 20.9 Random Glucose 77 mg/dl Calcium Level 9.2 mg/dl Random Vancomycin Level 17.4 mcg/ml Assessment and Plan 89yo female admitted on 06/23/2016 because of acute hypoxic and now hypercarbic respiratory failure secondary to empyema, was on BiPAP, and has suffered worsening renal function requiring hemodialysis. Acute hypoxic and hypercarbic respiratory failure, weaned off of BiPAP to nasal cannula after 1 round of hemodialysis as well as treatment for her empyema. Multifocal community-acquired pneumonia, right-sided empyema, and metabolic acidosis from her acute renal failure. -Continue to support with supplemental oxygen but patient has chosen to not be mechanically ventilated -now on Hospice and comfort care -Fentanyl patch and Roxanol prn SOB,pain Right-sided empyema and right-sided pneumonia - 2nd to Strep indeterminus. Repeat pleural fluid cultures are now without any growth s/p chest tube placement (pleurX) and drainage with instillation of MIST-2 protocol which is now completed Received 8 days of aztreonam & levaquin however better strep coverage would be with vancomycin as sensitivities to Levaquin were not performed and aztreonam does not typically cover for strep. Family and pt agreeable to stopping IV abx and want to remain on po abx for dc to home hospice--> start Clindamycin soln 300mg po tid -discontinue vancomycin after day #5 -chest tube management to CT surgery- will continue with Pleurx catheter in place to be drained daily-Home Hospice can manage PleurX drainage -continue Fentanyl patch and Roxanol po prn breakthrough pain, ativan prn anxiety Constipation- continue bowel regimen Acute renal failure in the setting of CKD stage 5, hemodialysis related syncope - right femoral catheter placed for temporary dialysis access and now removed BUN & Cr continued to worsen despite supportive care measures. Peak creatinine 4.7, acidosis in ABG pH 7.25. Could not tolerate HD after two attempts due to hypotension and made her feel "horrible.". Creatinine continues to rise again, bicarbonate continues to decrease, now at 15. Nephrology following, Numerous conversations made with pt and family, then with Palliative Care--> pt and family now agree to not have HD for improved life quality and due to poor life expectancy. -Continue Nephrocaps, Tums with meals for binder, calcitriol as tolerated, continue NaHCO3 tabs -continue Mills catheter -no further labs to be drawn after d/w family and patient Syncope during dialysis-Troponin and ECGs for syncope all negative/stable- likely due to hypotension Anemia - suspect due to anemia of chronic kidney disease as well as blood draws , etc. but also with Hemoccult positive stool, has hemorrhoids. Discussed possible GI blood loss other than hemorrhoids with daughter and patient-she is not a good candidate for any sort of endoscopy at this time. Managed with PPI and blood transfusion. H/H down to 7.7 -Transfused 1 unit PRBC this admission -Follow CBC but now moving towards Hospice so will not transfuse again -received Epogen per Nephro -Stopped subcutaneous heparin Hypothermia-unclear reason but likely due to dysregulation and metabolic abnormalities related to renal failure -Sahra shaw, warming blanket-pt declined hypotension - ongoing/intermittent.Worsening today, minimal po intake and was on IVFs for 24 hrs HOLDing all home BP meds. -stop IVFs Sepsis 2nd to empyema-resolved Metabolic encephalopathy -was due to worsening hypercarbia, uremia, etc. - improved but now worsening again Diarrhea - c diff neg x 2. Abx-associated. Cont probiotics. -Resolved thrush - nystatin QID. Improved. Anorexia -secondary to renal failure and empyema. Discussed with daughters were very concerned that patient is not eating much. This is secondary to acute illness and renal failure/uremia -received Megace but consider stopping now as is moving towards comfort measures DVT proph -stopped heparin SQ for anemia and Hemoccult positive stool -SCDs only CODE STATUS is now DNR/DNI after lengthy d/w pt and daughters today Disposition-to home with Home Hospice tomorrow
[2016-07-04] MEDS: DOCUSATE SODIUM 100 MG CAP PO SCH (22:17)
[2016-07-04] MEDS ORDERED: SOD PHOSPHATE/SOD BIPHOSPHATE ENEMA 132 ML BTL ONE (23:18)
[2016-07-04] MEDS ORDERED: SOD PHOSPHATE/SOD BIPHOSPHATE ENEMA 132 ML BTL PR ONE (23:45)
[2016-07-05] MEDS: CHECK FENTANYL PATCH PLACEMENT SCH ×2 (00:15→07:59)
[2016-07-05] MEDS: GUAIFENESIN SUGAR FREE 100 MG/5 ML UDC PO SCH ×3 (02:00→09:41)
[2016-07-05] MEDS: MoRPHine SULFATE 2.5 MG/0.125 ML UDP PO PRN ×2 (04:23→06:38)
[2016-07-05] MEDS: LORAZEPAM 0.5 MG TAB SL PRN ×2 (04:35→11:13)
[2016-07-05] MEDS: CALCIUM CARBONATE 500 MG CHEWABLE PO SCH ×2 (05:20→11:00)
[2016-07-05] MEDS: BOOST BREEZE NUTRITION DRINK 1 BOX PO SCH ×2 (06:30→11:00)
[2016-07-05] MEDS: ACETAMINOPHEN SOLN 160 MG/5 ML BTL PO SCH (06:39)
--- NOTE | 2016-07-05 07:11 | Surgery Progress Note ---
Subjective Date of Service: Jul 05, 2016. Pt. unable to provide any meaning subjective data as she is altered. Objective Vitals Date Time Temp Pulse Resp B/P Pulse Ox O2 Delivery O2 Flow Rate FiO2 07/05/16 00:00 Room Air 07/04/16 20:00 Room Air 07/04/16 16:00 73 12 84/46 96 Room Air 07/04/16 16:00 Room Air 07/04/16 12:00 Room Air 07/04/16 11:25 35.1 73 18 102/66 96 Room Air 07/04/16 11:24 74 20 98 Nasal Cannula 2.0 07/04/16 08:00 Room Air 07/04/16 07:44 36.6 78 16 95/62 94 07/04/16 07:25 75 20 95 Nasal Cannula 2.0 Drains / Tubes pleurex (right side in place--RN note family requested that it not be drained at this this time) Assessment & Plan 89 year old female admitted with empyema -pleurex placed on (06/24/16) -MIST II protocol completed on (06/26/16) -repeat CT Scan performed om (06/26/16)---small amount of residual fluid noted; parenchymal infiltrates noted -serial CXR have demonstrated 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 as ordered by primary service -JESUS noted; nephrology following: -HD attempted however pt. did not tolerate -discussed with family at bedside; plan noted for hospice -discussed with hospitalist--upon d/c pleurex can be drained 2-3 x per week and prn; no need for formal appt. with Susan Cortez unless family requests
[2016-07-05] MEDS ORDERED: ATROPINE SULFATE 1% OP SOLN 5 ML BTL SL PRN (07:15)
[2016-07-05] MEDS ORDERED: MoRPHine SULFATE 5 MG/0.25 ML UDP ONE (07:15)
[2016-07-05] MEDS: DOCUSATE SODIUM 100 MG CAP PO SCH (07:32)
[2016-07-05] MEDS: MULTIVITAMINS W/MINERALS 15ML UDP PO SCH (07:32)
[2016-07-05] MEDS: SACCHAROMYCES BOUL (FLORASTOR) 250 MG CAP PO SCH (07:33)
[2016-07-05] MEDS: SODIUM BICARBONATE 650 MG TAB PO SCH (07:33)
[2016-07-05] MEDS: NEPHROCAPS PO SCH (07:33)
[2016-07-05] MEDS: NYSTATIN SUSP 500,000 U/5 ML UDC PO SCH ×2 (07:33→10:24)
[2016-07-05] MEDS: MEGESTROL ACETATE SUSP 400 MG/10 ML UDC PO SCH (07:33)
[2016-07-05] MEDS: ALBUT/IPRATROP 3MG/0.5MG NEB 3 ML VIAL INH SCH ×2 (08:00→10:58)
[2016-07-05] MEDS ORDERED: MoRPHine SULFATE 5 MG/0.25 ML UDP PO PRN (08:15)
[2016-07-05] MEDS: LIDODERM (LIDOCAINE) PATCH 5% TD SCH (08:36)
[2016-07-05] MEDS: CLINDAMYCIN PO SCH (08:36)
[2016-07-05] MEDS: HYDROCORTISONE 2.5% CR 30 GM TUBE EXT PRN (08:37)
[2016-07-05] MEDS ORDERED: MoRPHine SULFATE 2 MG/ML CARP ONE (08:59)
[2016-07-05] MEDS ORDERED: ATROPS5 SL (09:17)
[2016-07-05] MEDS ORDERED: RXNS5 PO ×2 (09:17→11:50)
--- NOTE | 2016-07-05 09:21 | Discharge Instructions ---
Discharge Instructions Date of Service Jul 05, 2016. Admission Reason for Admission: Pleural Effusion;Pneumonia Discharge Discharge Diagnosis / Problem: Renal failure, Empyema Discharge Goals Goal(s): Decrease discomfort, Diagnostic testing Activity Recommendations Activity Limitations: as noted below bedrest and activity as tolerated . Instructions / Follow-Up Instructions / Follow-Up Ms. Griffiths was admitted with an infection called an empyema and sustained acute kidney failure superimposed on her chronic kidney disease. She attempted dialysis but her body was too frail to tolerate it. Her decision was made along with her daughters to opt for comfort measures only. She will be discharged to home with home hospice to manage. Her PleurX catheter should remain in place and the database security administrator can drain it 2-3x/week as tolerated by patient. Her Mills catheter should also remain in place for comfort. Current Hospital Diet Patient's current hospital diet: Low Potassium Diet (2g K), Renal Diet Discharge Diet Recommended Diet: Clear Liquid Diet (as tolerated for comfort) Procedures Procedures Performed: Insertion of right femoral vein temporary dialysis catheter Pending Studies Studies pending at discharge: no Medical Emergencies . Who to Call and When: Medical Emergencies: If at any time you feel your situation is an emergency, please call 911 immediately. . Non-Emergent Contact Non-Emergency issues call your: Primary Care Provider (Hospice Provider) . . "Provider Documentation" section prepared by Carol Garsia. . VTE Core Measure Inpt VTE Proph given/why not?: Unfractionated heparin SQ
[2016-07-05] MEDS ORDERED: MoRPHine SULFATE 2 MG/ML CARP IV ONE (09:30)
[2016-07-05] MEDS ORDERED: NURSING VERBAL MED ORDER ONE (09:30)
[2016-07-05 12:37] VITALS: BP 84/46; PULSE 73; TEMP 35.1; O2SAT 96
--- NOTE | 2016-07-05 19:39 | Discharge Summary ---
Discharge Summary Date of Service Jul 05, 2016. Discharge Summary Admission Date: Jun 23, 2016 at 18:26 Discharge Date: Jul 05, 2016 Discharge Disposition: Home with services (home hospice) Principal Diagnosis: Empyema, Acute renal failure Problems/Secondary Diagnoses: Acute hypoxic and hypercarbic respiratory failure Multifocal community-acquired pneumonia, right-sided empyema Metabolic acidosis Constipation Acute renal failure in the setting of CKD stage 5 Hemodialysis related syncope Oliguria Hyperphosphatemia Anemia due to anemia of chronic kidney disease and chronic GI blood loss External hemorrhoids Hypothermia Hypotension History of hypertension Sepsis Metabolic encephalopathy Diarrhea Oral candidiasis Anorexia Immunizations: Have You Had Influenza Vaccine: Yes Influenza Vaccine Date: Dec 24, 2011 History of Tetanus Vaccine?: unknown History of Pneumococcal: Yes Pneumococcal Date: Dec 26, 2003 History of Hepatitis B Vaccine: No Procedures: Right femoral central venous catheter placement PleurX catheter placement CT chest: 1. Cardiomegaly and emphysema. 2. There is a large and multiloculated complex gas and fluid containing collection identified at the right lung base as detailed above. This likely represents an empyema. 3. Multifocal tree-in-bud airspace nodularity is seen throughout the right lung and at the left lung base. This is likely on an infectious/inflammatory basis and should be reassessed at follow-up. 4. Prominent mediastinal lymph nodes are likely on a reactive basis. 5. Bronchiectasis is again seen at the right lung base. The right lower lobe airways are filled with fluid, and there is also fluid seen within the trachea. Correlate clinically for evidence of aspiration. 6. 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 This is new from 07/27/2011. The remainder of the thoracic aorta is normal in caliber. Multiple chest x-rays Renal ultrasound: 1. Increased renal cortical echogenicity consistent with medical renal disease 2. No evidence of hydronephrosis 3. 15 mm right renal cyst Consultations: Nephrology Thoracic surgery Vascular surgery Palliative care Medication Reconciliation New Medications: Diphenhydramine Hcl (Benadryl Syrup) 2.5 Mg/1 Ml Syrp 10 ML PO Q6H PRN for Itching, #240 ML *Multivitamins Therapeutic (Therapeutic Liquid) 15 Ml Blessing 15 ML PO QAM for 30 Days Atropine Sulfate (Atropine Sulfate) 1 % Blessing 4 DROPS SL Q2H PRN for secretions, #1 BTL B-Complex W/ C & Folic Acid (Renal) 1 Cap Cap 1 CAP PO QAM for 30 Days, #30 CAP Bisacodyl (Bisac-Evac) 10 Mg Supp 10 MG [place] BID PRN for Constipation for 3 Days, #3 SUPP Calcitriol (Calcitriol) 0.25 Mcg Cap 0.25 MCG PO MoWeFr@0900 for 30 Days, CAP Calcium Carbonate (Tums) 500 Mg Chew 500 MG PO AC for 30 Days Docusate Sodium (Docusate Sodium) 100 Mg Cap 100 MG PO BID for 30 Days, #60 CAP Fentanyl (Fentanyl) 12 Mcg Tdsy 12 MCG TD Q3D@1200 for 15 Days, #1 BOX Hydrocortisone (Hydrocortisone) 90 Appln/30 Gm Cr 1 APPLN EXT Q4H PRN for HEMORRHOIDS for 30 Days, #1 TUBE Lactulose (Chronulac) 10 Gm/15 Ml Syrp 15 GM PO DAILY PRN for Constipation for 30 Days, #1 BTL Lidocaine (Lidocaine) 1 Patch Tdsy 2 PATCH TD DAILY@0900, #1 BOX Lorazepam (Lorazepam) 0.5 Mg Tab 0.5 MG SL Q6H PRN for Anxiety for 3 Days, #12 TAB Morphine Sulfate (Morphine Sulfate) 5 Mg/0.25 Ml Soln 5-10 MG PO Q2H PRN for PAIN OR SOB, #30 ML Sodium Bicarbonate (Sodium Bicarbonate) 650 Mg Tab 650 MG PO BID for 30 Days, #60 TAB Changed Medications: Clindamycin Palmitate (Clindamycin Palmitate HCl) 150 Mg/10 Ml Soln 20 ML PO TID for 7 Days, #420 ML (Changed from: 200; Removed Instructions) Discontinued Medications: Acetaminophen (Tylenol) 500 Mg Tab 1000 MG PO Q6H PRN for Pain, TAB Albuterol Hfa (Ventolin Hfa) 200 Puffs/30495 Mcg Aers 2 PUFFS INH QID, #18 Albuterol Sulf (Proventil 0.083% 2.5MG/3ML) 2.5 Mg/3 Ml Nebu 2.5 MG INH QID, EA Atenolol (Tenormin) 100 Mg Tab 100 MG PO DAILY, 0 Refills Diltiazem Hcl Coated Beads (Diltiazem Cd) 180 Mg Cap 180 MG PO DAILY, CAP Fluocinonide (Lidex 0.05% Oint) 180 Appln/60 Gm Oint 1 GM TOP BID, #60 Furosemide (Lasix) 20 Mg Tab 20 MG PO DAILY, TAB Prednisolone Sod Phos (Prednisolone Sodium Phosp) 5 Mg/5 Ml Liqd 40 ML PO UD, #300 TAPERING DOSE CURRENTLY TAKING 40ML FOR 3 DAYS STARTED 06/22/16 Discharge Exam Patient very weak and drowsy on the day of discharge, still complaining of pain all over but improved with increasing doses pain meds and Ativan Review of Systems: Constitutional: No fever Eyes: No problem reported ENT: No problem reported Respiratory: No shortness of breath Cardiovascular: No problem reported Abdomen: No problem reported Musculoskeletal: + joint pain, + muscle pain Genitourinary - Female: No problem reported Neurologic: No problem reported Psychiatric: No problem reported Endocrine: No problem reported Hematologic / Lymphatic: No problem reported Integumentary: No problem reported Physical Exam: General Appearance: + cachetic (and frail, curled up in bed) Eyes: sclerae normal Respiratory/Chest: no respiratory distress, no accessory muscle use, + decreased breath sounds (at the right lower and middle lung ariza) Cardiovascular: regular rate, rhythm, no edema Abdomen / GI: non tender, soft Extremities: no pedal edema Neurologic/Psychiatric: + disoriented, + pertinent finding (drowsy) Skin: normal color, no rash Hospital Course 89yo female admitted on 06/23/2016 because of acute hypoxic and now hypercarbic respiratory failure secondary to empyema, was on BiPAP, and has suffered worsening renal function requiring hemodialysis. Acute hypoxic and hypercarbic respiratory failure, weaned off of BiPAP to room air after 1 round of hemodialysis as well as treatment for her empyema. Multifocal community-acquired pneumonia, right-sided empyema, and metabolic acidosis from her acute renal failure. -now on Hospice and comfort care -Fentanyl patch and Roxanol prn SOB,pain -Supplemental oxygen as needed for comfort Right-sided empyema and right-sided pneumonia - 2nd to Strep indeterminus. Repeat pleural fluid cultures are now without any growth s/p chest tube placement (pleurX) and drainage with instillation of MIST-2 protocol which is now completed Received 8 days of aztreonam & levaquin and then changed to vancomycin as sensitivities to Levaquin were not performed and aztreonam does not typically cover for strep. Family and pt agreeable to stopping IV abx and want to remain on po abx for dc to home hospice as per their wishes--> Clindamycin soln 300mg po tid -discontinue vancomycin after day #5 -chest tube management to CT surgery- will continue with Pleurx catheter in place to be drained 2-3 times per week by home Hospice -continue Fentanyl patch and Roxanol po prn breakthrough pain, ativan prn anxiety Constipation-improved continue bowel regimen at home with suppositories of bisacodyl Acute renal failure in the setting of CKD stage 5, hemodialysis related syncope , oliguria - right femoral catheter placed for temporary dialysis access and now removed BUN & Cr continued to worsen despite supportive care measures. Peak creatinine 4.7, acidosis in ABG pH 7.25. Could not tolerate HD after two attempts due to hypotension and made her feel "horrible.". Creatinine continues to rise again, bicarbonate continues to decrease, now at 15. Only 150 ML's of urine in the last 24 hours. Nephrology following, Numerous conversations made with pt and family, then with Palliative Care--> pt and family now agree to not have HD for improved life quality and due to poor life expectancy. -Continue Nephrocaps, Tums with meals for binder, calcitriol as tolerated, continue NaHCO3 tabs -continue Mills catheter -no further labs to be drawn after d/w family and patient Syncope during dialysis-Troponin and ECGs for syncope all negative/stable- likely due to hypotension Anemia - suspect due to anemia of chronic kidney disease as well as blood draws , etc. but also with Hemoccult positive stool, has hemorrhoids. Discussed possible GI blood loss other than hemorrhoids with daughter and patient-she is not a good candidate for any sort of endoscopy at this time. Managed with PPI and blood transfusion. H/H down to 7.7 -Transfused 1 unit PRBC this admission -Follow CBC but now moving towards Hospice so will not transfuse again -received Epogen per Nephro -Stopped subcutaneous heparin Hypothermia-unclear reason but likely due to dysregulation and metabolic abnormalities related to renal failure -Sahra shaw warming blanket-pt declined hypotension - ongoing/intermittent.Worsening today, minimal po intake and is intravascularly depleted HOLDing all home BP meds. No IV fluids due to being on comfort measures only Sepsis 2nd to empyema-resolved Metabolic encephalopathy -was due to worsening hypercarbia, uremia, etc. - improved but now worsening again Diarrhea - c diff neg x 2. Abx-associated. Cont probiotics. -Resolved thrush - nystatin QID. Improved. -Will not continue nystatin on discharge Anorexia -secondary to renal failure and empyema. Discussed with daughters were very concerned that patient is not eating much. This is secondary to acute illness and renal failure/uremia -received Megace but stopping now as is going home with hospice DVT proph -stopped heparin SQ for anemia and Hemoccult positive stool -SCDs only while in hospital CODE STATUS is now DNR/DNI after lengthy d/w pt and daughters Disposition-to home with Home Hospice today Total Time Spent: Greater than 30 minutes This includes examination of the patient, discharge planning, medication reconciliation, and communication with other providers. Discharge Instructions Please refer to the electronic Patient Visit Report (Discharge Instructions) for additional information. Follow-Up With hospice provider Additional Copies To Joe Murphy M.D.
[2016-07-06] MEDS ORDERED: FENTANYL PATCH REMOVE & WASTE SCH (12:00)
== END 2016-07-05 13:15 | disposition hospice, home (50) | DRG 177 ==
LOC: ENRESERVTM → ENRESERVDT → C.EDB 16:15 → C.MSW 18:26 → C.2T 06-29 01:13 → C.4E 07-04 15:02
PROVIDERS: ADMIT Internal Medicine; ATTEND Family Medicine
PROC: 0W9930Z Drainage of Right Pleural Cavity with Drainage Device, Percutaneous Approach (ICD-10-PCS; principal; 2016-06-24)
PROC: 3E0L3GC Introduction of Other Therapeutic Substance into Pleural Cavity, Percutaneous Approach (ICD-10-PCS; 2016-06-25)
PROC: 3E0L3TZ Introduction of Destructive Agent into Pleural Cavity, Percutaneous Approach (ICD-10-PCS; 2016-06-25)
PROC: 06HM33Z Insertion of Infusion Device into Right Femoral Vein, Percutaneous Approach (ICD-10-PCS; 2016-06-30)
DX: J86.9 Pyothorax without fistula (principal); A41.9 Sepsis, unspecified organism; N18.6 End stage renal disease; G93.41 Metabolic encephalopathy; E43 Unspecified severe protein-calorie malnutrition; J96.02 Acute respiratory failure with hypercapnia; J96.01 Acute respiratory failure with hypoxia; J18.9 Pneumonia, unspecified organism; N17.9 Acute kidney failure, unspecified; B37.0 Candidal stomatitis; E87.4 Mixed disorder of acid-base balance; J91.8 Pleural effusion in other conditions classified elsewhere; J44.0 Chronic obstructive pulmonary disease with (acute) lower respiratory infection; Z96.641 Presence of right artificial hip joint; M19.90 Unspecified osteoarthritis, unspecified site; Z96.651 Presence of right artificial knee joint; Z82.49 Family history of ischemic heart disease and other diseases of the circulatory system; Z80.9 Family history of malignant neoplasm, unspecified; Z87.891 Personal history of nicotine dependence; Z79.899 Other long term (current) drug therapy; E86.0 Dehydration; R19.7 Diarrhea, unspecified; Z66 Do not resuscitate; D63.1 Anemia in chronic kidney disease; K64.4 Residual hemorrhoidal skin tags; E83.39 Other disorders of phosphorus metabolism; D50.0 Iron deficiency anemia secondary to blood loss (chronic); K59.00 Constipation, unspecified; Z51.5 Encounter for palliative care; R55 Syncope and collapse; Z88.0 Allergy status to penicillin; Z84.1 Family history of disorders of kidney and ureter; Z99.81 Dependence on supplemental oxygen